=== PATIENT | male | born 1995 | race Caucasian/White ===

== ENCOUNTER 2024-03-11 08:11 | Outpatient (OUT) | payer BC, SELFPAY ==
[2024-03-12 09:07] LABS: Rapid Plasma Reagin, Quant Non Reactive titer (NonRea<1:1)
[2024-03-12 11:09] LABS: HBsAg Screen Negative (Negative); HCV Antibody Non Reactive (Non Reactive); Hep B Core Ab, Tot Negative (Negative)
[2024-03-12 13:07] LABS: HIV Ab/p24 Ag Screen Non Reactive (Non Reactive)
[2024-03-13 21:07] LABS: Neisseria gonorrhoeae, NAA Negative (Negative)
== END 2024-03-11 08:12 | disposition home or self-care (01) ==
LOC: LAB 08:14
PROVIDERS: PCP Family Medicine
DX: Z31.41 Encounter for fertility testing (principal)
CPT/HCPCS: 36415; 86592; 86704; 86803; 87340; 87389; 87491; 87591

== ENCOUNTER 2024-04-01 09:44 | Outpatient (OUT) | payer BC, SELFPAY ==
--- OUTSIDE RECORDS SUMMARY | 2024-04-01 09:49 | XMS_ITS | CCD ---
Author Organization [facility] Care Team Providers Care Pressure Testing Technician Name Role Phone IGNACIO CARRILLO Attending Unavailable PEREZ BROCK Primary Care Unavailable MULTERRYGAN, IGNACIO Admitting Unavailable MULLIGAN, IGNACIO Consulting Unavailable MULLIGAN, IGNACIO Admitting Unavailable MULLIGAN, IGNACIO Consulting Unavailable IGNACIO CARRILLO Attending Unavailable PEREZ BROCK Primary Care Unavailable SINTIA, IGNACIO Attending Unavailable SINTIA, IGNACIO Admitting Unavailable MISC, DOCTOR Primary Care Unavailable REENA GRACIA Consulting Unavailable REENA GRACIA Attending Unavailable REENA GRACIA Admitting Unavailable PEREZ JAMES V Consulting Unavailable JORJE PELLETIER Consulting Unavailable PEREZ BROCK Primary Care Unavailable SINTIA, IGNACIO Admitting Unavailable SINTIA, IGNACIO Attending Unavailable SINTIA, IGNACIO Consulting Unavailable PEREZ BROCK Primary Care Unavailable SINTIA, IGNACIO Attending Unavailable SINTIA, IGNACIO Admitting Unavailable SINTIA, IGNACIO Consulting Unavailable No, Physician Primary Care Provider Unavailanahi e DO Perez Brock Primary Care Provider DO Mikki Plummer Attending Provider Perez Brock Primary Care Physician [phone] MD Danette García Attending Provider DO Perez Brock Primary Care Provider [phone] Perez Brock Unavailable DO Perez Brock Primary Care Provider MD Danette García Attending Provider [phone] DO Perez Brock Attending Provider [phone] MD Danette García Referring Provider [phone] Unavailable Primary Care Provider Unavailabl e MAURICIO FRANZ Attending Un available PEREZ BROCK Referring Unavailable PEREZ BROCK Primary Care Unavailable DO Perez Brock Primary Care Provider MD Mauricio Franz Attending Provide r Perez Brock Primary Care Unavailable Lue, Danette M Admitting Unavailable Lue, Danette M Attending Unavailable Lue, Danette M Admitting Unavailable GirPerez bello Primary Care Unavailable Lue, Danette M Attending Unavailable Perez Brock Primary Care Unavailable Lue, Danette M Attending Unavailable Lue, Danette M Admitting Unavailable Perez Brock Primary Care Unavailable Mauricio Franz Attending Unav ailable Mauricio Franz Admitting Unav ailable Lue, Danetet M Referring Unavailable Perez Brock Admitting Unavailable Perez Brock Attending Unavailable Perez Brock Primary Care Unavailable Mariza, Perez Primary Care Unavailable Lue, Danette M Admitting Unavailable Lue, Danette M Attending Unavailable Unavailable Primary Care Provider Unavailabl e TRACEE, ANGEL Referring Unavailable SMOLEN, EVERARDO Referring Unavailable DUDZIAK, JESSE Referring Unavailable ATTARAN, WILLIAM Referring Unavailable Lue, Danette M. Attending Unavailable Lue, Danette M. Attending Unavailable Lue, Danette M. Attending Unavailable Lue, Danette M. Admitting Unavailable Lue, Danette M. Attending Unavailable DO Perez Brock Primary Care Provider MD Danette García Attending Provider [phone] Allergies Allergy Classification Reported Allergen(s) Allergy Type Date of Onset Reaction(s) Facility (7 sources) Pollen; Translations: [Pollen] Allergy to substance Eruption of skin (disorder) [facility] (7 sources) Grass; Translations: [Grass] Allergy to substance Itching (finding) [facility] (3 sources) Escitalopram Drug Allergy sexual side effects, excessive sweating and mood swings Oncodesign Other (1 source) Escitalopram Drug Allergy 05-12-20 [facility] Repository (1 source) No Known Medication Allergies; Translations: [No Known Medication Allergies] Propensity to adverse reactions (disorder) [facility] Repository NEGATED: Highlighted row has been ruled out! (1 source) Drug allergy [facility] NEGATED: Highlighted row has been ruled out! (1 source) Drug allergy [facility] NEGATED: Highlighted row has been ruled out! (1 source) Drug allergy [facility] NEGATED: Highlighted row has been ruled out! (1 source) Drug allergy [facility] NEGATED: Highlighted row has been ruled out! (1 source) Drug allergy [facility] NEGATED: Highlighted row has been ruled out! (1 source) Drug allergy [facility] Medications Current Medications Medication Drug Class(es) Dates Sig (Normalized) Sig (Original) Allergy (3 sources) Allergy Active benzoyl peroxide 0.05 mg/mg / erythromycin 0.03 mg/mg topical gel (2 sources) Macrolide, Macrolide Antimicrobial Start: 10-01-2015 benzoyl peroxide-erythrom ycin (BENZAMYCIN) gel APPLY TO AFFECTED AREAS ONCE DAILY AT BEDTIME 25 g 0 10/01/2015 Active Start: 06-24-2015 End: 10-01-2015 benzoyl peroxide-erythromyci n (BENZAMYCIN) gel APPLY AT BEDTIME 46.6 g 1 06/24/2015 10/01/2015 Discontinued (Reorder (Suppress CancelRx Message to Pharmacy)) busPIRone (18 sources) Start: 12-29-2023 take 1 tablet by elder th twice daily Buspirone Active 0 .ROUTE .COMPLEX 180 December 29, 2023 9:54am TAKE 1 TABLET BY MOUTH TWICE A DAY Start: 09-22-2023 End: 12-29-2023 take 10 mg by mouth twice daily Buspirone Discontinued 10 MG PO Twice daily 180 September 22, 2023 5:32pm December 29, 2023 9:55am Start: 06-11-2023 take 1 mg by mouth twice daily busPIRone 10 mg Tab mg tab(s), Oral, BID Start Date: 06/11/23 Status: Ordered Start: 03-31-2023 take 1 tablet by elder th every twelve hours busPIRone HCl 10 MG 1 tablet Orally Twice a day for 30 days Mar, Active Start: 03-31-2023 take 1 tablet by elder th every twelve hours busPIRone HCl 5 MG 1 tablet Orally Twice a day for 30 days Mar, Active cetirizine hydrochloride 10 mg oral tablet (3 sources) Histamine-1 Receptor Antagonist Start: 11-17-2023 take 1 tablet by mouth once daily Cetirizine (24hour Allergy) 10 mg tablet Active 10 MG PO Daily November 17, 2023 12:00am Sharlene (4 sources) Histamine-1 Receptor Antagonist Start: 03-26-2023 Sharlene Oral Start Date: 03/26/23 Status: Ordered Multivitamin preparation (1 source) Multivitamin Active Completed/Discontinued Medications Medication Drug Class(es) Dates Sig (Normalized) Sig (Original) finasteride 5 mg oral tablet (2 sources) 5-alpha Reductase Inhibitor take 1 tablet by mouth every twenty-four hours Finasteride 5 MG 1 tablet Orally Once a day Not-Taking Problems Active Problems Problem Classification Problem Date Documented Date Episodic/Chronic Abdominal pain (15 sources) Left lower quadrant pain; Translations: [Abdominal pain] Onset: 01-29-2020 02-14-2020 Episodic Acute and chronic tonsillitis (3 sources) Amygdalolith; 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 Anxiety disorders (11 sources) Anxiety; Translations: [Anxiety disorder, unspecified] Chronic Calculus of urinary tract (20 sources) Calculus of kidney; Translations: [Kidney stone] Onset: 06-05-2020 Episodic 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; 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 Genitourinary symptoms and ill-defined conditions (14 sources) Blood in urine; Translations: [Gross hematuria] Onset: 01-11-2023 Episodic Other acquired deformities (6 sources) Spondylolisthesis; Translations: [Spondylolisthesis, site unspecified] 11-17-2023 Episodic Other acquired deformities (2 sources) Spondylolisthesis, site unspecified; Translations: [Spondylolisthesis] Episodic Other diseases of kidney and ureters (4 sources) Hydronephrosis with renal and ureteral calculous obstruction; Translations: [HYDRONPHROS RENL AND URETRL CALCUL OBST] Onset: 03-26-2020 Episodic Other diseases of kidney and ureters (1 source) Acquired renal cyst without neoplastic change; Translations: [Cyst of kidney, acquired] Onset: 01-11-2023 Episodic Other diseases of kidney and ureters (6 sources) Hydronephrosis due to ureteral obstruction 02-14-2020 Episodic Other diseases of kidney and ureters (6 sources) Hydronephrosis; Translations: [Unspecified hydronephrosis] Onset: 02-01-2023 Episodic Other endocrine disorders (2 sources) Hyperparathyroidism, unspecified; Translations: [Hyperparathyroidism, unspecified] Onset: 11-04-2023 Chronic Other nutritional; endocrine; and metabolic disorders (4 sources) Hypercalcemia; Translations: [HYPERCALCEMIA] Onset: 05-24-2020 Chronic Other screening for suspected conditions (not mental disorders or infectious disease) (3 sources) Blood chemistry abnormal; Translations: [Other specified abnormal findings of blood chemistry] Onset: 06-11-2023 Episodic Pneumonia (except that caused by tuberculosis or sexually transmitted disease) (4 sources) Pneumonia; Translations: [Pneumonia, unspecified organism] 03-01-2024 Episodic Unclassified (1 source) New Patient Onset: 11-04-2023 Unclassified (1 source) Low back pain, unspecified; Translations: [Low back pain, unspecified] Onset: 04-14-2023 Past or Other Problems Problem Classification Problem Date Documented Date Episodic/Chronic Contraceptive and procreative management (7 sources) Patient encounter status; Translations: [Encounter for other procreative investigation and testing] Onset: 08-27-2023 08-26-2023 Episodic Fracture of upper limb (1 source) Fracture at wrist and/or hand level; Translations: [Hydronephrosis with renal and ureteral calculous obstruction] Onset: 01-20-2023 Episodic Unclassified (1 source) Lumbar pain M54.50 Results Test Name Value Interpretation Reference Range Facility Reminderson 03-13-2024 Reminders Reminders From: Laila Haskins To: [facility] - Recalls Lue; Sent: 06/11/2023 10:09:30 EST Show up: 11/10/2023 11:09:00 EDT Subject: Imaging Due Date/Time: 01/10/2024 11:09:00 EDT Pt needs to get KUB and KELLI done prior to appt. appt with KML 01/07/24- patient wants imaging done at [facility] Pt appointment rescheduled for 04/21/24 verified KE[place] [facility], [place] from [facility] [place] that patient wants to be scheduled closer to his appointment time. [facility] [place] patient, Dustin [facility] HIV 1 and HIV-2 antibody ass ay with HIV-1 p24 antigen detectionon 03-11-2024 HIV 1+2 Ab+HIV1 p24 Ag IA Ql Non-Reactive Non Reactive [facility] Comment on above: HIV-1/HIV-2 antibodi es and HIV-1 p24 antigen were NOTdetected. There is no laboratory evidence of HIV infection.HIV NegativePerformed at: CÜR - [facility] [address] [id number] Director: Sony Strauss PhD, Phone: [phone] Hepatitis B virus surface Ag [Presence] in Serum or Plasma by Immunoassayon 03-11-2024 HBV surface Ag IA Ql Negative Negative [facility] Hepatitis C virus IgG Ab [Pr esence] in Serum or Plasma by Immunoassayon 03-11-2024 HCV IgG IA Ql Non-Reactive Non Reactive [facility] Comment on above: HCV antibody alone d oes not differentiate betweenpreviously resolved infection and active infection.Equivocal and Reactive HCV antibody results should befollowed up with an HCV RNA test to support the diagnosisof active HCV infection. Laboratory - Microbiology an d Antimicrobial susceptibilityon 03-11-2024 N. gonorrhoeae DNA CITLALI+probe Ql (Unsp spec) Negative Negative [facility] No Panel Informationon 03-11 Hepatitis B Core Total Antibody Negative Negative [facility] Comment on above: Performed at: CB - [facility] [address] [id number] Director: Sony Strauss PhD, Phone: [phone] RPR Quantitative Confirmation Non Reactive titer NonRea<1:1 [facility] Comment on above: Please Note: This te st does not meet current guidelines forscreening and diagnosis of syphilis. This test isintended for following treatment response in patients beingtreated for syphilis infection. To screen for syphilisinfection, a reflex cascade that includes both RPR and atreponema-specific assay should be utilized, such asTreponema pallidum (Syphilis) Screening [place] (208769) orRapid Plasma Reagin (RPR) Test With Reflex to QuantitativeRPR and Confirmatory Treponema pallidum Antibodies(533464).Performed at: - [facility] [id number] Director: Sony Strauss PhD, Phone: [phone] Chlamydia trachomatis (CITLALI) (LAB) Negative Negative [facility] Comment on above: Performed at: = - L [address] [id number] Director: Alisa Soria MD, Phone: [phone] CARRIER SCREEN, [place] [address] 03-04-2024 CARRIER SCREEN RESULTS View results in Scanned Documents link when available. [facility] Comment on above: Order Comment: Speci men Type: BLOOD SPECIMEN Ordering Facility: 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 #:[id number]: 1 Problem List As Of Date: 01/07/2024 (None) Encounter Status:Closed by ZEE DAMIAN on 01/07/24 [facility] SPERM WASH GRADIENTon 2023 Collection time (Malika) [Date/time] 1:08 Normal [facility] Comment on above: Order Comment: Speci men Type: SEMINAL FLUID SPECIMENOrdering Facility: [facility] Address: [address] [place] [address] Result Comment: 1:15 Performed By: #### P ERCOL ####[facility] H[facility]ITALANDROLOGYCLIA [id number] [place] [id number] PARTNER INFORMATION Jenn Marcelino Normal [facility] Comment on above: Order Comment: Speci men Type: SEMINAL FLUID SPECIMENOrdering Facility: [facility] Address: [address] [place] [address] Performed By: #### P ERCOL ####[facility] H[facility]ITALANDROLOGYCLIA [id number] [place] [id number] PERCENT MOTILITY POST 95 % Normal >=50 [facility] Comment on above: Order Comment: Speci men Type: SEMINAL FLUID SPECIMENOrdering Facility: [facility] Address: [address] [place] [address] Performed By: #### P ERCOL ####[facility] HOS[facility]ITALANDROLOGYCLIA [id number] [place] [id number] Sexual abstinence duration [Time] 1.0 Days [facility] Comment on above: Order Comment: Speci men Type: SEMINAL FLUID SPECIMENOrdering Facility: [facility] Address: [address] [place] [address] Performed By: #### P ERCOL ####[facility] H[facility]ITALANDROLOGYCLIA [id number] [place] [id number] Specimen volume (Malika) 0.4 mL Normal >=1.50 [facility] Comment on above: Order Comment: Speci men Type: SEMINAL FLUID SPECIMENOrdering Facility: [facility] Address: [address] [place] [address] Performed By: #### P ERCOL ####[facility]-ANDROLOGYCLIA [id number] [facility] [place] [address] SPERM CONCENTRATION POST 60.0 M/mL Normal [facility] Comment on above: Order Comment: Speci men Type: SEMINAL FLUID SPECIMENOrdering Facility: [facility] Address: [address] [place] [address] Performed By: #### P ERCOL ####[facility]-ANDROLOGYCLIA [id number] [facility] [place] [address] [place] (Malika) [#/Vol] 24.0 M Normal >=15.00 [facility] Comment on above: Order Comment: Speci men Type: SEMINAL FLUID SPECIMENOrdering Facility: [facility] Address: [address] [place] [address] Result Comment: 135. 70 Performed By: #### P ERCOL ####[facility]ITALANDROLOGYCLIA [id number] [facility] [place] [address] [place] Motile (Malika) [#/Vol] 22.8 M Normal [facility] Comment on above: Order Comment: Speci men Type: SEMINAL FLUID SPECIMENOrdering Facility: [facility] Address: [address] [place] [address] Performed By: #### P ERCOL ####[facility]ITALANDROLOGYCLIA [id number] [facility] [place] [address] [place] Motile/100 spermatozoa (Malika) 83 % Normal >=40 [facility] Comment on above: Order Comment: Speci men Type: SEMINAL FLUID SPECIMENOrdering Facility: [facility] Address: [address] [place] [address] Performed By: #### P ERCOL ####[facility]-ANDROLOGYCLIA [id number] [facility] [place] [address] UNDIFF ROUND CELLS POST WASH 0.00 M/mL Normal <1.00 [facility] Comment on above: Order Comment: Speci men Type: SEMINAL FLUID SPECIMENOrdering Facility: [facility] Address: [address] [place] [id number] Performed By: #### P ERCOL ####[facility]-ANDROLOGYCLIA [id number] [place] [id number] WASHING SOLUTION EnhanceW [facility] Comment on above: Order Comment: Speci men Type: SEMINAL FLUID SPECIMENOrdering Facility: [facility] Address: [address] [place] [id number] Performed By: #### P ERCOL ####[facility]-ANDROLOGYCLIA [id number] [place] [id number] CNOVon 12-15-2023 CNOV Office Visit (ANDRBE ) REX MARCELINO ([id number]) 1995 M Date Time Provider Department 12/15/23 1:30 PM [facility]OLOG[facility] During your visit today, we recorded the following information about you: Zee Damian 12/15/2023 4:18 PM Signed Semen Wash for IUI Zee Damian Referring Provider: EVERARDO THOMPSON [[id number]] Allergies As of Date: 12/15/2023 (Not on File) Date Reviewed: Never Reviewed Visit Diagnosis:Encounter for investigation and testing for procreative management [Z31.49] Order(s):SPERM WASH GRADIENT [SQPERCOL] Order #: [id number]. #:[id number]: 1 Problem List As Of Date: 12/15/2023 (None) Encounter Status:Closed by ZEE DAMIAN on 12/15/23 [facility] SPERM WASH GRADIENTon 2023 Collection time (Malika) [Date/time] 2:08 [facility] Comment on above: Order Comment: Speci men Type: SEMINAL FLUID SPECIMENOrdering Facility: [facility] Address: [address] [place] [id number] Result Comment: 2:15 Performed By: #### P ERCOL ####[facility]-ANDROLOGYCLIA [id number] [facility] [place] [address] PARTNER INFORMATION Jenn Marcelino Normal [facility] Comment on above: Order Comment: Speci men Type: SEMINAL FLUID SPECIMENOrdering Facility: [facility] Address: [address] [place] [address] Performed By: #### P ERCOL ####[facility]-ANDROLOGYCLIA [id number] [place] [id number] PERCENT MOTILITY POST 97 % Normal >=50 [facility] Comment on above: Order Comment: Speci men Type: SEMINAL FLUID SPECIMENOrdering Facility: [facility] Address: [address] [place] [address] Performed By: #### P ERCOL ####[facility]-ANDROLOGYCLIA [id number] [facility] [place] [id number] Sexual abstinence duration [Time] 1.0 Days Normal [facility] Comment on above: Order Comment: Speci men Type: SEMINAL FLUID SPECIMENOrdering Facility: [facility] Address: [address] [place] [address] Performed By: #### P ERCOL ####[facility]-ANDROLOGYCLIA [id number] [place] [id number] Specimen volume (Malika) 0.4 mL Normal >=1.50 [facility] Comment on above: Order Comment: Speci men Type: SEMINAL FLUID SPECIMENOrdering Facility: [facility] Address: [address] [place] [address] Performed By: #### P ERCOL ####[facility]-ANDROLOGYCLIA [id number] [facility] [place] [id number] SPERM CONCENTRATION POST 104.0 M/mL Normal [facility] Comment on above: Order Comment: Speci men Type: SEMINAL FLUID SPECIMENOrdering Facility: [facility] Address: [address] [place] [address] Performed By: #### P ERCOL ####[facility]-ANDROLOGYCLIA [id number] [place] [address] [place] (Malika) [#/Vol] 41.6 M Normal >=15.00 [facility] Comment on above: Order Comment: Speci men Type: SEMINAL FLUID SPECIMENOrdering Facility: [facility] Address: [address] [place] [address] Result Comment: 115. 20 Performed By: #### P ERCOL ####[facility]ITALANDROLOGYCLIA [id number] [place] [id number] [place] Motile (Malika) [#/Vol] 40.4 M Normal [facility] Comment on above: Order Comment: Speci men Type: SEMINAL FLUID SPECIMENOrdering Facility: [facility] Address: [address] [place] [address] Performed By: #### P ERCOL ####[facility]ITALANDROLOGYCLIA [id number] [place] [id number] [place] Motile/100 spermatozoa (Malika) 85 % Normal >=40 [facility] Comment on above: Order Comment: Speci men Type: SEMINAL FLUID SPECIMENOrdering Facility: [facility] Address: [address] [place] [address] Performed By: #### P ERCOL ####[facility]ITALANDROLOGYCLIA [id number] [place] [id number] UNDIFF ROUND CELLS POST WASH 0.00 M/mL Normal <1.00 [facility] Comment on above: Order Comment: Speci men Type: SEMINAL FLUID SPECIMENOrdering Facility: [facility] Address: [address] [place] [address] Performed By: #### P ERCOL ####[facility]ITALANDROLOGYCLIA [id number] [place] [id number] WASHING SOLUTION EnhanceW Normal [facility] Comment on above: Order Comment: Speci men Type: SEMINAL FLUID SPECIMENOrdering Facility: [facility] Address: [address], [place] [address] Performed By: #### P ERCOL ####[facility]-ANDROLOGYCLIA [id number] [place] [address] Lab Reportson 11-16-2023 Lab Reports [id number]#[id number] [id number] Normal [facility] Alanine aminotransferase [En zymatic activity/volume] in Serum or PlasmaOrdered By: Mauricio Gloria on 11-13-2023 ALT [Catalytic activity/Vol] 22 U/L 7-52 [facility] Albumin [Mass/volume] in Ser um or Plasma by Bromocresol green (BCG) dye binding methoOrdered By: Mauricio Gloria on 11-13-2023 Albumin BCG dye [Mass/Vol] 4.8 g/dL 3.5-5.7 [facility] Alkaline phosphatase [Enzyma tic activity/volume] in Serum or PlasmaOrdered By: Mauricio Gloria on 11-13-2023 ALP [Catalytic activity/Vol] 63 U/L 34-104 [facility] Aspartate aminotransferase [ Enzymatic activity/volume] in Serum or PlasmaOrdered By: Mauricio Gloria on 11-13-2023 AST [Catalytic activity/Vol] 16 U/L 13-39 [facility] Bilirubin.total [Mass/volume ] in Serum or PlasmaOrdered By: Mauricio Gloria on 11-13-2023 Bilirubin [Mass/Vol] 1.3 mg/dL 0.3-1.0 [facility] Comment on above: Samples from patient s who have taken Naproxen have shown spurious elevation in Total Bilirubin levels. A metabolite of Naproxen, O-desmethylnaproxen, has been shown to interfere with the Kenyon-Tena method for measuring Total Bilirubin. Calcium [Mass/volume] in Ser um or PlasmaOrdered By: Mauricio Gloria on 11-13-2023 Calcium [Mass/Vol] 10.0 mg/dL 8.6-10.3 [facility] Carbon dioxide, total [Moles /volume] in Serum or PlasmaOrdered By: Mauricio Gloria on 11-13-2023 CO2 [Moles/Vol] 28.9 mmol/L 21.0-31.0 [facility] Chloride [Moles/volume] in S adis or PlasmaOrdered By: Mauricio Gloria on 11-13-2023 Chloride [Moles/Vol] 105 mmol/L 98-107 [facility] Comprehensive Metabolic Pane ramirez 11-13-2023 Albumin [Mass/Vol] 4.8 g/dL Normal 3.5-5.7 [facility] Comment on above: Order Comment: FASTI NG Performed By: #### P TH, MG, [id number], CMP #### [facility] [address] [place] [address] #### CAION #### [facility] , Albumin/Globulin [Mass ratio] 2.0 {ratio} Normal [facility] Comment on above: Order Comment: FASTI NG Performed By: #### P TH, MG, [id number], CMP #### [facility] [address] [place] [address] [place] #### CAION #### [facility] , ALP [Catalytic activity/Vol] 63 U/L Normal 34-104 [facility] Comment on above: Order Comment: FASTI NG Performed By: #### P TH, MG, [id number], CMP #### [facility] [address] [place] [address] [place] #### CAION #### [facility] , ALT [Catalytic activity/Vol] 22 U/L Normal 7-52 [facility] Comment on above: Order Comment: FASTI NG Performed By: #### P TH, MG, [id number], CMP #### [facility] [address] [place] [address] [place] #### CAION #### [facility] , Anion gap [Moles/Vol] 10.5 mmol/L Normal 6.0-15.0 [facility] Comment on above: Order Comment: FASTI NG Performed By: #### P TH, MG, [id number], CMP #### [place] [address] [place] #### CAION #### [facility] , AST [Catalytic activity/Vol] 16 U/L Normal 13-39 [facility] Comment on above: Order Comment: FASTI NG Performed By: #### P TH, MG, [id number], CMP #### [place] [address] [place] #### CAION #### [facility] , Bilirubin [Mass/Vol] 1.3 mg/dL High 0.3-1.0 [facility] Comment on above: Order Comment: FASTI NG Result Comment: Samp les from patients who have taken Naproxen have shown spurious elevation in Total Bilirubin levels. A metabolite of Naproxen, O-desmethylnaproxen, has been shown to interfere with the Jendrsussyik-Grof method for measuring Total Bilirubin. Performed By: #### P TH, MG, [id number], CMP #### [place] [address] [place] #### CAION #### [facility] , Calcium [Mass/Vol] 10.0 mg/dL Normal 8.6-10.3 [facility] Comment on above: Order Comment: FASTI NG Performed By: #### P TH, MG, [id number], CMP #### [facility] [address] [place] [address] [place] #### CAION #### [facility] , Chloride [Moles/Vol] 105 mmol/L Normal 98-107 [facility] Comment on above: Order Comment: FASTI NG Performed By: #### P TH, MG, [id number], CMP #### [place] [address] [place] #### CAION #### [facility] , CO2 [Moles/Vol] 28.9 mmol/L Normal 21.0-31.0 [facility] Comment on above: Order Comment: FASTI NG Performed By: #### P TH, MG, [id number], CMP #### [place] [address] [place] #### CAION #### [facility] , Creatinine [Mass/Vol] 1.03 mg/dL Normal 0.70-1.30 [facility] Comment on above: Order Comment: FASTI NG Performed By: #### P TH, MG, [id number], CMP #### [address] #### CAION #### [facility] , GFR/1.73 sq M.predicted MDRD (S/P/Bld) [Vol rate/Area] mL/min/{1.73_m2} Normal [facility] Comment on above: Order Comment: FASTI NG Performed By: #### P TH, MG, [id number], CMP #### [place] [address] [place] #### CAION #### [facility] , Globulin (S) [Mass/Vol] 2.4 g/dL Normal [facility] Comment on above: Order Comment: FASTI NG Performed By: #### P TH, MG, [id number], CMP #### [facility] [address] [place] [address] [place] #### CAION #### [facility] , Glucose [Mass/Vol] 91 mg/dL Normal 70-100 [facility] Comment on above: Order Comment: FASTI NG Result Comment: [place] om Glucose Reference Range is dependent on time and content of last meal. Glucose of more than 200 mg/dL in a nonstressed, ambulatory subject supports the diagnosis of Diabetes Mellitus. ADA recommended reference range Performed By: #### P TH, MG, [id number], CMP #### [place] [address] [place] #### CAION #### [facility] , Potassium [Moles/Vol] 4.4 mmol/L Normal 3.5-5.1 [facility] Comment on above: Order Comment: FASTI NG Performed By: #### P TH, MG, [id number], CMP #### [facility] [address] [place] [address] [place] #### CAION #### [facility] , Protein [Mass/Vol] 7.2 g/dL Normal 6.4-8.9 [facility] Comment on above: Order Comment: FASTI NG Performed By: #### P TH, MG, [id number], CMP #### [facility] [address] [place] [address] [place] #### CAION #### [facility] , Sodium [Moles/Vol] 140 mmol/L Normal 136-145 [facility] Comment on above: Order Comment: FASTI NG Performed By: #### P TH, MG, [id number], CMP #### [facility] [address] [place] [address] [place] #### CAION #### [facility] , Urea nitrogen [Mass/Vol] 17 mg/dL Normal 7-25 [facility] Comment on above: Order Comment: FASTI NG Performed By: #### P TH, MG, [id number], CMP #### [facility] [address] [place] [address] [place] #### CAION #### [facility] , Creatinine [Mass/volume] in Serum or PlasmaOrdered By: Mauricio Gloria on 11-13-2023 Creatinine [Mass/Vol] 1.03 mg/dL 0.70-1.30 [facility] Globulin Calc (S) [Mass/Vol] Ordered By: Mauricio Gloria on 11-13-2023 Globulin (S) [Mass/Vol] 2.4 g/dL [facility] Glucose [Mass/volume] in Ser um or PlasmaOrdered By: Mauricio Gloria on 11-13-2023 Glucose [Mass/Vol] 91 mg/dL 70-100 [facility] Comment on above: ADA recommended refe rence rangeRandom Glucose Reference Range is dependent on time and content of last meal. Glucose of more than 200 mg/dL in a nonstressed, ambulatory subject supports the diagnosis of Diabetes Mellitus. Ionized Calciumon 11-13-2023 Ionized Calcium 5.0 mg/dL Normal 4.5-5.6 [facility] Comment on above: Order Comment: FASTI NG Result Comment: Perf ormed at: CB - [facility] [address] [id number] Supervisor [employer]: Sony Strauss PhD, Phone: [phone] PERFORMED BY: [place] [address] PATHOLOGIST OFFICE NURSE PRACTITIONER GIBSON DOSS M.D. Performed By: #### P TH, MG, [id number], CMP #### [facility] [address] [place] [address] #### CAION #### [facility] , Magnesiumon 11-13-2023 Magnesium [Mass/Vol] 2.0 mg/dL Normal 1.9-2.7 [facility] Comment on above: Order Comment: FASTI NG Performed By: #### P TH, MG, [id number], CMP #### [facility] [address] [place] [address] #### CAION #### [facility] , Magnesium [Mass/volume] in S adis or PlasmaOrdered By: Mauricio Gloria on 11-13-2023 Magnesium [Mass/Vol] 2.0 mg/dL 1.9-2.7 [facility] No Panel InformationOrdered By: Mauricio Gloria on 11-13-2023 Estimated GFR (CKD-EPI) > 60.0 mL/Min [facility] Creatinine Clearance (Chem N/A [facility] Parathyrin.intact [Mass/volu me] in Serum or PlasmaOrdered By: Mauricio Gloria on 11-13-2023 Parathyrin.intact [Mass/Vol] 54.5 pg/mL [facility] Parathyroid Hormone Int[place]on 11-13-2023 Parathyroid Hormone Intact 54.5 pg/mL Normal [facility] Comment on above: Order Comment: KERRY NG Result Comment: PERF ORMED BY: [facility] [address] [place] [address] PATHOLOGIST OFFICE NURSE PRACTITIONER GIBSON DOSS M.D. Performed By: #### P TH, MG, [id number], CMP #### [facility] [address] [place] [address] [place] #### CAION #### [facility] , Potassium [Moles/volume] in Serum or PlasmaOrdered By: Mauricio Gloria on 11-13-2023 Potassium [Moles/Vol] 4.4 mmol/L 3.5-5.1 [facility] Protein [Mass/volume] in Ser um or PlasmaOrdered By: Mauricio Gloria on 11-13-2023 Protein [Mass/Vol] 7.2 g/dL 6.4-8.9 [facility] Serum ionized calcium measur ement using ion specific electrode (mass/volume)Ordered By: Mauricio Gloria on 11-13-2023 Calcium.ionized ISE [Mass/Vol] 5.0 mg/dL 4.5-5.6 [facility] Comment on above: Performed at: [address] [id number] Director: Sony Strauss PhD, Phone: [phone] Serum or plasma albumin/glob ulin mass ratioOrdered By: Mauricio Gloria on 11-13-2023 Albumin/Globulin [Mass ratio] 2.0 {ratio} [facility] Serum or plasma anion gap de terminationOrdered By: Mauricio Gloria on 11-13-2023 Anion gap [Moles/Vol] 10.5 mmol/L 6.0-15.0 [facility] Sodium [Moles/volume] in Ser um or PlasmaOrdered By: Mauricio Gloria on 11-13-2023 Sodium [Moles/Vol] 140 mmol/L 136-145 [facility] Urea nitrogen [Mass/volume] in Serum or PlasmaOrdered By: Mauricio Gloria on 11-13-2023 Urea nitrogen [Mass/Vol] 17 mg/dL 7-25 [facility] Vitamin D 25 Hydroxy Totalon 11-13-2023 Vitamin D 25 Hydroxy Total 20.4 ng/mL Low 30-100 [facility] Comment on above: Order Comment: FASTI NG Result Comment: KAYLIE MIN D STATUS 25(OH)VITAMIN D RANGE (ng/mL) Deficient <20 Insufficient 20 to <30 Sufficient 30 to 100 Reference: Lucero Mason, Juan Manuel BANUELOS, et al. Evaluation,treatment, and prevention of vitamin D deficiency; an Endocrine Society clinical practice guideline. JCEM. 2010; 96(7):1911-. PERFORMED BY: [facility] [address] [place] [address] PATHOLOGIST OFFICE NURSE PRACTITIONER GIBSON DOSS M.D. Performed By: #### P TH, MG, [id number], CMP #### [address] #### CAION #### [facility] , Vitamin D+Metabolites [Mass/ volume] in Serum or PlasmaOrdered By: Mauricio Gloria on 11-13-2023 Vitamin D+Metabolites [Mass/Vol] 20.4 ng/mL 30-100 [facility] Comment on above: VITAMIN D STATUS 25( OH)VITAMIN D RANGE (ng/mL) Deficient <20 Insufficient 20 to <30Sufficient 30 to 100Reference: Lucero Mason, Juan Manuel BANUELOS, et al. Evaluation,treatment, and prevention of vitamin D deficiency; an Endocrine Society clinical practice guideline. JCEM. 2010; 96(7):1911-30. CNOVon 10-21-2023 CNOV Office Visit (ANDRBE ) REX MARCELINO ([id number]) 1995 M Date Time Provider Department 10/21/23 2:00 PM ANDROLOGY DELIVERY AND INSTALLATION SUBCONTRACTOR JAVIERJENNIFER During your visit today, we recorded the following information about you: Zee Damian 10/21/2023 3:17 PM Signed [place] Wash for IUI Zee Damian Referring Provider: JESSE NOLASCO [[id number]] Allergies As of Date: 10/21/2023 (Not on File) Date Reviewed: Never Reviewed Visit Diagnosis:Encounter for investigation and testing for procreative management [Z31.49] Order(s):SPERM WASH GRADIENT [SQPERCOL] Order #: [id number]. #:[id number]: 1 Problem List As Of Date: 10/21/2023 (None) Encounter Status:Closed by ZEE DAMIAN on 10/21/23 Normal [facility] SPERM WASH GRADIENTon 2023 Collection time (Malika) [Date/time] 2:03 [facility] Comment on above: Order Comment: Speci men Type: SEMINAL FLUID SPECIMENOrdering Facility: [facility] Address: [address] [place] [address] Result Comment: 3:10 Performed By: #### P ERCOL ####[facility]-ANDROLOGYCLIA [id number] [place] [id number] PARTNER INFORMATION Jenn Marcelino Normal [facility] Comment on above: Order Comment: Speci men Type: SEMINAL FLUID SPECIMENOrdering Facility: [facility] Address: [address] [place] [address] Performed By: #### P ERCOL ####[facility]-ANDROLOGYCLIA [id number] [place] [id number] PERCENT MOTILITY POST 95 % Normal >=50 [facility] Comment on above: Order Comment: Speci men Type: SEMINAL FLUID SPECIMENOrdering Facility: [facility] Address: [address] [place] [address] Performed By: #### P ERCOL ####[facility]-ANDROLOGYCLIA [id number] [place] [id number] Sexual abstinence duration [Time] 2.0 Days Normal [facility] Comment on above: Order Comment: Speci men Type: SEMINAL FLUID SPECIMENOrdering Facility: [facility] Address: [address] [place] [address] Performed By: #### P ERCOL ####[facility]ITALANDROLOGYCLIA [id number] [place] [id number] Specimen volume (Malika) 0.4 mL Normal >=1.50 [facility] Comment on above: Order Comment: Speci men Type: SEMINAL FLUID SPECIMENOrdering Facility: [facility] Address: [address] [place] [address] Performed By: #### P ERCOL ####[facility] H[facility]ITALANDROLOGYCLIA [id number] [place] [id number] SPERM CONCENTRATION POST 76.0 M/mL Normal [facility] Comment on above: Order Comment: Speci men Type: SEMINAL FLUID SPECIMENOrdering Facility: [facility] Address: [address] [place] [address] Performed By: #### P ERCOL ####[facility]ITALANDROLOGYCLIA [id number] [place] [id number] Sper[place] (Malika) [#/Vol] 30.4 M Normal >=15.00 [facility] Comment on above: Order Comment: Speci men Type: SEMINAL FLUID SPECIMENOrdering Facility: [facility] Address: [address] [place] [address] Result Comment: 109. 20 Performed By: #### P ERCOL ####[facility]ITALANDROLOGYCLIA [id number] [place] [id number] [place] Motile (Malika) [#/Vol] 28.8 M Normal [facility] Comment on above: Order Comment: Speci men Type: SEMINAL FLUID SPECIMENOrdering Facility: [facility] Address: [address] [place] [address] Performed By: #### P ERCOL ####[facility]-ANDROLOGYCLIA [id number] [facility] [address] [id number] [place] Motile/100 spermatozoa (Malika) 85 % Normal >=40 [facility] Comment on above: Order Comment: Speci men Type: SEMINAL FLUID SPECIMENOrdering Facility: [facility] Address: [address] [place] [address] Performed By: #### P ERCOL ####[facility]-ANDROLOGYCLIA [id number] [place] [id number] UNDIFF ROUND CELLS POST WASH 0.00 M/mL Normal <1.00 [facility] Comment on above: Order Comment: Speci men Type: SEMINAL FLUID SPECIMENOrdering Facility: [facility] Address: [address] [place] [address] Performed By: #### P ERCOL ####[facility] H[facility]ITALANDROLOGYCLIA [id number] [place] [id number] WASHING SOLUTION Enhance W Normal [facility] Comment on above: Order Comment: Speci men Type: SEMINAL FLUID SPECIMENOrdering Facility: [facility] Address: [address] [place] [address] Performed By: #### P ERCOL ####[facility]-ANDROLOGYCLIA [id number] [place] [id number] CNOVon 09-22-2023 CNOV Office Visit (ANDRBE ) REX MARCELINO ([id number]) 1995 M Date Time Provider Department 09/22/23 1:30 PM ANDROLOGY DELIVERY AND INSTALLATION SUBCONTRACTOR [facility]CLE[facility] During your visit today, we recorded the following information about you: Zee Damian 09/22/2023 3:49 PM Signed Semen Wash for IUI Zee Damian Referring Provider: ANGEL EASLEY [[id number]] Allergies As of Date: 09/22/2023 (Not on File) Date Reviewed: Never Reviewed Visit Diagnosis:Encounter for investigation and testing for procreative management [Z31.49] Order(s):SPERM WASH GRADIENT [SQPERCOL] Order #: [id number]. #:[id number]: 1 Problem List As Of Date: 09/22/2023 (None) Encounter Status:Closed by ZEE DAMIAN on 09/22/23 Normal [facility] SPERM WASH GRADIENTon 2023 Collection time (Malika) [Date/time] 1:50 Normal [facility] Comment on above: Order Comment: Speci men Type: SEMINAL FLUID SPECIMENOrdering Facility: [facility] Address: [address] [place] [address] Result Comment: 1:50 Performed By: #### P ERCOL ####[facility] H[facility]ITALANDROLOGYCLIA [id number] [place] [address] PARTNER INFORMATION Jenn Marcelino Normal [facility] Comment on above: Order Comment: Speci men Type: SEMINAL FLUID SPECIMENOrdering Facility: [facility] Address: [address] [place] [address] Performed By: #### P ERCOL ####[facility] HOS[facility]ITALANDROLOGYCLIA [id number] [place] [id number] PERCENT MOTILITY POST 94 % Normal >=50 [facility] Comment on above: Order Comment: Speci men Type: SEMINAL FLUID SPECIMENOrdering Facility: [facility] Address: [address] [place] [address] Performed By: #### P ERCOL ####[facility] H[facility]ITALANDROLOGYCLIA [id number] [place] [id number] Sexual abstinence duration [Time] 2.0 Days Normal [facility] Comment on above: Order Comment: Speci men Type: SEMINAL FLUID SPECIMENOrdering Facility: [facility] Address: [address] [place] [address] Performed By: #### P ERCOL ####[facility] H[facility]ITALANDROLOGYCLIA [id number] [facility] [place] [address] Specimen volume (Malika) 0.4 mL Normal >=1.50 [facility] Comment on above: Order Comment: Speci men Type: SEMINAL FLUID SPECIMENOrdering Facility: [facility] Address: [address] [place] [address] Performed By: #### P ERCOL ####[facility]-ANDROLOGYCLIA [id number] [facility] [place] [id number] SPERM CONCENTRATION POST 107.0 M/mL Normal [facility] Comment on above: Order Comment: Speci men Type: SEMINAL FLUID SPECIMENOrdering Facility: [facility] Address: [address] [place] [address] Performed By: #### P ERCOL ####[facility]ITALANDROLOGYCLIA [id number] [place] [id number] [place] (Malika) [#/Vol] 42.8 M Normal >=15.00 [facility] Comment on above: Order Comment: Speci men Type: SEMINAL FLUID SPECIMENOrdering Facility: [facility] Address: [address] [place] [address] Result Comment: 198. 80 Performed By: #### P ERCOL ####[facility]ITALANDROLOGYCLIA [id number] [place] [id number] [place] Motile (Malika) [#/Vol] 40.4 M Normal [facility] Comment on above: Order Comment: Speci men Type: SEMINAL FLUID SPECIMENOrdering Facility: [facility] Address: [address] [place] [address] Performed By: #### P ERCOL ####[facility] H[facility]ITALANDROLOGYCLIA [id number] [place] [address] [place] Motile/100 spermatozoa (Malika) 83 % Normal >=40 [facility] Comment on above: Order Comment: Speci men Type: SEMINAL FLUID SPECIMENOrdering Facility: [facility] Address: [address] [place] [address] Performed By: #### P ERCOL ####[facility]-ANDROLOGYCLIA [id number] [place] [id number] UNDIFF ROUND CELLS POST WASH 0.00 M/mL Normal <1.00 [facility] Comment on above: Order Comment: Speci men Type: SEMINAL FLUID SPECIMENOrdering Facility: [facility] Address: [address] [place] [address] Performed By: #### P ERCOL ####[facility]-ANDROLOGYCLIA [id number] [place] [id number] WASHING SOLUTION EnhanceW Normal [facility] Comment on above: Order Comment: Speci men Type: SEMINAL FLUID SPECIMENOrdering Facility: [facility] Address: [address] [place] [address] Performed By: #### P ERCOL ####[facility]-ANDROLOGYCLIA [id number] [place] [id number] CNOVon 08-27-2023 CNOV Office Visit (ANDRBE ) REX MARCELINO ([id number]) 1995 M Date Time Provider Department 08/27/23 1:30 PM ANDROLOGY DELIVERY AND INSTALLATION SUBCONTRACTOR [facility] During your visit today, we recorded the following information about you: Zee Damian 08/27/2023 3:42 PM Signed Semen Wash for IUI Zee Damian Referring Provider: NO PCP [[id number]] Allergies As of Date: 08/27/2023 (Not on File) Date Reviewed: Never Reviewed Primary Visit Diagnosis:Encounter for investigation and testing for procreative management [Z31.49] Order(s):SPERM WASH GRADIENT [SQPERCOL] Order #: [id number]: 1 STANDING SPERM WASH GRADIENT [SQPERCOL] Order #: [id number]. #:[id number]: 1 Problem List As Of Date: 08/27/2023 (None) Encounter Status:Closed by ZEE DAMIAN on 08/27/23 [facility] SPERM WASH GRADIENTon 2023 Collection time (Malika) [Date/time] 1:48 Normal [facility] Comment on above: Order Comment: Speci men Type: SEMINAL FLUID SPECIMENOrdering Facility: [facility] Address: [address] [place] [address] Result Comment: 1:55 Performed By: #### P ERCOL ####[facility]-ANDROLOGYCLIA [id number] [place] [address] COMMENT, PRE WASH 45% isolate used Normal [facility] Comment on above: Order Comment: Speci men Type: SEMINAL FLUID SPECIMENOrdering Facility: [facility] Address: [address] [place] [address] Performed By: #### P ERCOL ####[facility]-ANDROLOGYCLIA [id number] [place] [address] PARTNER INFORMATION Jenn Marcelino Normal [facility] Comment on above: Order Comment: Speci men Type: SEMINAL FLUID SPECIMENOrdering Facility: [facility] Address: [address] [place] [address] Performed By: #### P ERCOL ####[facility]-ANDROLOGYCLIA [id number] [place] [id number] PERCENT MOTILITY POST 72 % Normal >=50 [facility] Comment on above: Order Comment: Speci men Type: SEMINAL FLUID SPECIMENOrdering Facility: [facility] Address: [address] [place] [address] Performed By: #### P ERCOL ####[facility]-ANDROLOGYCLIA [id number] [place] [id number] Sexual abstinence duration [Time] 2.0 Days [facility] Comment on above: Order Comment: Speci men Type: SEMINAL FLUID SPECIMENOrdering Facility: [facility] Address: [address] [place] [address] Performed By: #### P ERCOL ####[facility]-ANDROLOGYCLIA [id number] [place] [address] Specimen volume (Malika) 0.4 mL Normal >=1.50 [facility] Comment on above: Order Comment: Speci men Type: SEMINAL FLUID SPECIMENOrdering Facility: [facility] Address: [address] [place] [address] Performed By: #### P ERCOL ####[facility]ITALANDROLOGYCLIA [id number] [place] [address] SPERM CONCENTRATION POST 114.0 M/mL Normal [facility] Comment on above: Order Comment: Speci men Type: SEMINAL FLUID SPECIMENOrdering Facility: [facility] Address: [address] [place] [address] Performed By: #### P ERCOL ####[facility]ITALANDROLOGYCLIA [id number] [place] [id number] Sper[place] (Malika) [#/Vol] 45.6 M Normal >=15.00 [facility] Comment on above: Order Comment: Speci men Type: SEMINAL FLUID SPECIMENOrdering Facility: [facility] Address: [address] [place] [address] Result Comment: 128. 70 Performed By: #### P ERCOL ####[facility]ITALANDROLOGYCLIA [id number] [place] [address] [place] Motile (Malika) [#/Vol] 32.8 M Normal [facility] Comment on above: Order Comment: Speci men Type: SEMINAL FLUID SPECIMENOrdering Facility: [facility] Address: [address] [place] [address] Performed By: #### P ERCOL ####[facility]ITALANDROLOGYCLIA [id number] [place] [address] [place] Motile/100 spermatozoa (Malika) 67 % Normal >=40 [facility] Comment on above: Order Comment: Speci men Type: SEMINAL FLUID SPECIMENOrdering Facility: [facility] Address: [address] [place] [address] Performed By: #### P ERCOL ####[facility]-ANDROLOGYCLIA [id number] [place] [id number] UNDIFF ROUND CELLS POST WASH 0.00 M/mL Normal <1.00 [facility] Comment on above: Order Comment: Speci men Type: SEMINAL FLUID SPECIMENOrdering Facility: [facility] Address: [address] [place] [address] Performed By: #### P ERCOL ####[facility]-ANDROLOGYCLIA [id number] [place] [id number] WASHING SOLUTION EnhanceW Normal [facility] Comment on above: Order Comment: Speci men Type: SEMINAL FLUID SPECIMENOrdering Facility: [facility] Address: [address] [place] [address] Performed By: #### P ERCOL ####[facility]ITALANDROLOGYCLIA [id number] [place] [id number] Screenson 06-14-2023 Screens [id number]. 00TIFF Normal [facility] Screens [id number]. 00TIFF Normal [facility] Ambulatory Visit Summaryon 1 08-11-2022 Ambulatory Visit Summary REX MARCELINO :1995 Visit Date:06/11/2023 Ambulatory Visit Instructions Your Diagnosis Kidney stone Duplicated collecting system History of kidney stones Tests Performed Urnls Dip Stick Auto w/o Microscopy POC 91155 Your Care Team Attending Physician - Ricky SAWYER, Danette [place] Primary Care Physician - Perez Brock DO This Is Your Medications List busPIRone (busPIRone 10 mg Tab) fexofenadine (Sharlene) Procedures Performed ESWL - Extracorporeal shockwave lithotripsy for renal calculus (02/23/2023), Cystoscopy (01/11/2023). Discharge Vitals Heart Rate (Peripheral) 92 Blood Pressure 136/77 Height 75 in Height 190 cm Weight 215.6 lb Weight 98 kg BMI 27.15 Medications What How Much When Instructions Unchanged busPIRone (busPIRone 10 mg Tab) 2 times a day Unchanged fexofenadine (Sharlene) Test Results Urnls Dip Stick Auto w/o Microscopy POC 85517 (06/11/2023) Bilirubin Urine Dipstick - Negative Blood Urine Dipstick - Negative Glucose Urine Dipstick - Negative Ketones Urine Dipstick - Negative Leukocytes Urine Dipstick - Negative Nitrite Urine Dipstick - Negative Protein Urine Dipstick - Negative Specific [place] Urine Dipstick - 1.010 Urine Appearance Urine Dipstick - Clear Urine Color Urine Dipstick - Light yellow Urobilinogen Urine Dipstick - Normal 0.2-1 EU/dl pH Urine Dipstick - 7 Allergies Grass (Itching) No Known Medication Allergies Pollen (Rash) Problems Ongoing - Any problem that you are currently receiving treatment for. Abdominal pain Duplicated collecting system Flank pain Gross hematuria History of kidney stones Hydronephrosis Hypercalciuria Kidney stone Ureteral stone with hydronephrosis Patient Survey You may receive a survey via text or e-mail asking about your office visit. Please share your experience with us by completing your survey. We appreciate your feedback and thank you for choosing us for your care. [facility] Patient Educationon 06-11-20 23 Patient Education Nephrology Dietary Guidelines to Help Prevent Kidney Stones Kidney stones are deposits of minerals and salts that form inside your kidneys. Your risk of developing kidney stones may be greater depending on your diet, your lifestyle, the medicines you take, and whether you have certain medical conditions. Most people can lower their chances of developing kidney stones by following the instructions below. Your dietitian may give you more specific instructions depending on your overall health and the type of kidney stones you tend to develop. What are tips for following this plan? Reading food labels ? Choose foods with no salt added or low-salt labels. Limit your salt (sodium) intake to less than 1,500 mg a day. ? Choose foods with calcium for each meal and snack. Try to eat about 300 mg of calcium at each meal. Foods that contain 200?500 mg of calcium a serving include: ? 8 oz (237 mL) of milk, izjpvis-eyqbycwdgstb-a airy milk, and calcium-fortifiedfruit juice. Calcium-fortified means that calcium has been added to these drinks. ? 8 oz (237 mL) of kefir, yogurt, and soy yogurt. ? 4 oz (114 g) of tofu. ? 1 oz (28 g) of cheese. ? 1 cup (150 g) of dried figs. ? 1 cup (91 g) of cooked broccoli. ? One 3 oz (85 g) can of sardines or mackerel. Most people need 1,000?1,500 mg of calcium a day. Talk to your dietitian about how much calcium is recommended for you. Shopping ? Buy plenty of fresh fruits and vegetables. Most people do not need to avoid fruits and vegetables, even if these foods contain nutrients that may contribute to kidney stones. ? When shopping for convenience foods, choose: ? Whole pieces of fruit. ? Pre-made salads with dressing on the side. ? Low-fat fruit and yogurt smoothies. ? Avoid buying frozen meals or prepared deli foods. These can be high in sodium. ? Look for foods with live cultures, such as yogurt and kefir. ? Choose high-fiber grains, such as whole-wheat breads, oat bran, and wheat cereals. Cooking ? Do not add salt to food when cooking. Place a salt shaker on the table and allow each person to add his or her own salt to taste. ? Use vegetable protein, such as beans, textured vegetable protein (TVP), or tofu, instead of meat in pasta, casseroles, and soups. Meal planning ? Eat less salt, if told by your dietitian. To do this: ? Avoid eating processed or pre-made food. ? Avoid eating fast food. ? Eat less animal protein, including cheese, meat, poultry, or fish, if told by your dietitian. To do this: ? Limit the number of times you have meat, poultry, fish, or cheese each week. Eat a diet free of meat at least 2 days a week. ? Eat only one serving each day of meat, poultry, fish, or seafood. ? When you prepare animal protein, cut pieces into small portion sizes. For most meat and fish, one serving is about the size of the palm of your hand. ? Eat at least five servings of fresh fruits and vegetables each day. To do this: ? Keep fruits and vegetables on hand for snacks. ? Eat one piece of fruit or a handful of berries with breakfast. ? Have a salad and fruit at lunch. ? Have two kinds of vegetables at dinner. ? Limit foods that are high in a substance called oxalate. These include: ? Spinach (cooked), rhubarb, beets, sweet potatoes, and [place] chard. ? Peanuts. ? Potato chips, slovenian fries, and baked potatoes with skin on. ? Nuts and nut products. ? Chocolate. ? If you regularly take a diuretic medicine, make sure to eat at least 1 or 2 servings of fruits or vegetables that are high in potassium each day. These include: ? Avocado. ? Banana. ? Delta, prune, carrot, or tomato juice. ? Baked potato. ? Cabbage. ? Beans and split peas. Lifestyle ? Drink enough fluid to keep your urine pale yellow. This is the most important thing you can do. Spread your fluid intake throughout the day. ? If you drink alcohol: ? Limit how much you use to: ? 0?1 drink a day for women who are not . ? 0?2 drinks a day for men. ? Be aware of how much alcohol is in your drink. In the [place] one drink equals one 12 oz bottle of beer (355 mL), one 5 oz glass of wine (148 mL), or one 1? oz glass of hard liquor (44 mL). ? Lose weight if told by your health care provider. Work with your dietitian to find an eating plan and weight loss strategies that work best for you. General information ? Talk to your health care provider and dietitian about taking daily supplements. You may be told the following depending on your health and the cause of your kidney stones: ? Not to take supplements with vitamin C. ? To take a calcium supplement. ? To take a daily probiotic supplement. ? To take other supplements such as magnesium, fish oil, or vitamin B6. ? Take gkcc-zfm-filuteq and prescription medicines only as told by your health care provider. These include supplements. What foods should I limit? Limit your in (more content not included)... Normal [facility] Urology Office/Clinic Noteon 06-11-2023 Urology Office/Clinic Note Chief Complaint 2 month follow up w/ metabolic work up HPI Staff 2 month follow up w/metabolic workup done 04/14/23, Litho Links 05/17/23. Previous DX: abdominal pain, flank pain, gross hematuria, hydronephrosis, kidney stone, ureteral stone with hydronephrosis. S/P Cysto done 01/11/23. Dysuria: denies pain and burning Incomplete bladder emptying: denies Hematuria: denies visible blood Frequency: every 2 hours Urgency: denies Nocturia: denies Stream: denies hesitancy, strong stream Leaking: denies Post void dripping: denies Wearing pads/ Depends: denies Urge incontinence: denies Stress incontinence: denies Incontinence without Sensory Awareness: denies Abdominal pain: denies Flank pain: sometimes Lt sided discomfort Sexual complaints: denies History of Present Illness Tests reviewed: reviewed UA and Metabolic Workup. I have reviewed the previous health record information and history for this patient from . I have reviewed and verified the staff HPI to be accurate for this encounter. There have been no associated fever, chills, flank pain, or blood in the urine. Denies any urinary infections since last encounter. Review of Systems PHQ Score Initial Depression Screen Score: 0 SCORE ROS - Provider Constitutional: denies weight loss, denies hot flashes. Eyes: denies eye problems. Gastrointestinal: denies nausea, denies vomiting. Cardiovascular: denies chest pain or angina. Integumentary: no dryness Musculoskeletal: denies musculoskeletal symptoms. ENMT: denies otolaryngeal symptoms. Respiratory: no shortness of breath. Heme/Lymph: denies easy bleeding tendency, denies easy bruising tendency. Psychiatric: no confusion, no anxiety. Genitourinary: See HPI. Physical Exam Vitals & Measurements HR: 92(Peripheral) BP: 136/77 HT: 75 in HT: 190 cm WT: 98 kg WT: 215.6 lb BMI: 27.15 General Appearance: alert, no distress, well nourished, well developed male. Assessment/Plan 28 year old male with history of kidney stones and hypercalciuria previously managed with hydrochlorothiazide by Dr. Carrillo last in 2019. He has been off the HCTZ for years. CARRIE 25(25). IPSS 8 1. Kidney stone (N20.0: Calculus of kidney) CT wo con 01/29/20 - Punctate right stone. Metabolic workup 05/24/20 - Slightly high Ca. KELLI 01/05/23 - Mild bilateral hydronephrosis with possible left renal pelvic stone 17 x 8 x 14 mm. CTU 01/20/23 - Mild prominence of the left renal collecting system (lower moiety) with a 9 mm stone at the inferior pole. KUB 02/10/23 - 9 mm stone L kidney grossly unchanged when compared to prior CT. No R renal stone. No ureteral calculus. S/p L ESWL 02/23/23. KUB 03/23/23 - Neg for stones. Stone Analysis 04/19/23 - CaOx Dihy 90%, CaOx Bremer 5%, and Hydroxyapatite 5% Labs 04/14/23 - PTH 93.2 (high), Ca 10.1, Uric acid 6.1 LithoLink 04/2023 - Urine CA 622, Volume 2.3 liters, citrate 588, sodium high 232 Discussed metabolic workup results with pt, PTH was elevated, could be the cause of his stones, calcium is borderline elevated, discussed referral to an import export manager for further evaluation. Volume is good, citrate was good, pt states that he had done the citrate prior to the test but not during the test. Pt states that he is taking a multi-vitamin and he dumped out his first void of the day. Advised pt to continue the amount of fluids he is drinking and decrease his sodium intake. Discussed dietary modifications. Discussed getting repeat imaging to monitor any stones. Pt states that he would like to do this. Advised pt that once the perithyroid is ruled out, then we will discuss starting the HCTZ again. Follow up in 7 mos w/KELLI and KUB. All questions/concerns were discussed. Pt to call the office if he encounters any issues prior. Pt acknowledges understanding. -Will order KUB and KELLI to be done prior to follow-up -Refer to Adjunct Professor Of Law for hyperparathyroid work-up -Continue dietary modifications: Decrease sodium, monitor calcium intake Ordered: Body Mass Index (BMI) documented 3008F Current tobacco non-user 1036F Most recent diastolic blood pressure >=90 mm Hg 3080F Most recent systolic blood pressure >= 140 mm Hg 3077F Urnls Dip Stick Auto w/o Microscopy POC 80417 US Renal XR Abdomen 1 View 2. 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 Recently diagnosed on cystoscopy, confirmed on CTU. -Consider nuclear medicine renal scan in the future if hydronephrosis of lower pole moiety worsens or becomes symptomatic. Unlikely problematic given able to clear stones easily. Ordered: Body Mass Index (BMI) documented 3008F Current tobacco non-user 1036F Most recent diastolic blood pressure >=90 mm Hg 3080F Most recent systolic blood pressure >= 140 mm Hg 3077F Urnls Dip Stick Auto w/o Microscopy POC 32599 3. History of kidney stones (Z87.442: Personal history of urinary calculi) Patient has passed stones from the left on his own in the p (more content not included)... Normal [facility] Comment on above: Result Comment: Elec tronically Signed By: Danette García MD\.br\Date and Time Signed: 06/11/23 10:27 EST\.br\Electronically Co-Signed By: Laila Haskins\.br\Date and Time Co-Signed: 06/11/23 10:08 EST Lab Reportson 05-20-2023 Lab Reports [id number] TIFF Normal [facility] Calculus Analysison 04-27-20 Calcium oxalate dihydrate Infrared spectroscopy (Stone) [Mass fraction] 90 % Invalid Interpretation Code [facility] Comment on above: Performed By: #### 1 [id number] #### [facility] [address] [place] [address] Calcium oxalate monohydrate (Stone) [Mass fraction] 5 % Invalid Interpretation Code [facility] Comment on above: Performed By: #### 1 [id number] #### [facility] [address] [place] [address] Calculus analysis [Interp] Comment Invalid Interpretation Code [facility] Comment on above: Result Comment: Calc ium phosphate (hydroxyl form) includes hydroxyapatite, amorphous calcium phosphate, and whitlockite. Hydroxyapatite is the most common of the calcium phosphate salts found in human kidney stones. Performed By: #### 1 [id number] #### [facility] [address] [place] [address] Color (Stone) Brown Invalid Interpretation Code [facility] Comment on above: Performed By: #### 1 [id number] #### [facility] [address] [place] [address] Composition Comment Invalid Interpretation Code [facility] Comment on above: Result Comment: Perc entage (Represents the % composition) Performed By: #### 1 [id number] #### [facility] [address] [place] [address] Disclaimer: Comment Invalid Interpretation Code [facility] Comment on above: Result Comment: This test was developed and its performance characteristics determined by [employer]. It has not been cleared or approved by the Food and Drug Administration. Performed at: [address] [id number] PhD Azam Botello Performed By: #### 1 [id number] #### [facility] [address] [place] [address] Hydroxyapatite: 5 % Invalid Interpretation Code [facility] Comment on above: Performed By: #### 1 [id number] #### [facility] [address] [place] [address] Laboratory comment Ruddy (Report) Comment Invalid Interpretation Code [facility] Comment on above: Result Comment: Sugar hauser questions regarding Calculi Analysis [facility] at: [phone]. Performed By: #### 1 [id number] #### [facility] [address] [place] [address] Please Note: Comment Invalid Interpretation Code [facility] Comment on above: Result Comment: Calc xuan report will follow via computer, mail or learning disabled teacher delivery. Performed By: #### 1 [id number] #### [facility] [address] [place] [address] Size (Stone) [Entitic vol] 3x3 Invalid Interpretation Code [facility] Comment on above: Result Comment: Mult iple pieces received. Dimensions of the largest piece reported. Performed By: #### 1 [id number] #### [facility] [address] [place] [address] Specimen source subject Nom Comment Invalid Interpretation Code [facility] Comment on above: Result Comment: Not provided Performed By: #### 1 [id number] #### [facility] [address] [place] [address] Stone Photo Comment Invalid Interpretation Code [facility] Comment on above: Result Comment: Phot ograph will follow under a separate cover Performed By: #### 1 [id number] #### [facility] [address] [place] [address] Weight (Stone) 75 mg Invalid Interpretation Code [facility] Comment on above: Performed By: #### 1 [id number] #### [facility] [address] [place] [address] Ambulatory Visit Summaryon 0 04-19-2023 Ambulatory Visit Summary REX MARCELINO :1995 Visit Date:04/19/2023 Ambulatory Visit Instructions Your Care Team Attending Physician - Danette García MD Primary Care Physician - Perez Brock DO This Is Your Medications List fexofenadine (Sharlene) Procedures Performed ESWL - Extracorporeal shockwave lithotripsy for renal calculus (02/23/2023), Cystoscopy (01/11/2023). What to do next Scheduled Follow-Up Appointments Wednesday 8:15 AM EDT With: Ricky SAWYER, Danette Alston Where: [facility] Normal [facility] Lab Reportson 04-15-2023 Lab Reports [id number] CD:127 Normal [facility] Blood Urea Nitrogenon 2022 Urea nitrogen [Mass/Vol] 15 mg/dL Normal 7-25 [facility] Comment on above: Performed By: #### L YTES, URIC, BUN, CREAT, PTH, CA #### [address] Calciumon 04-14-2023 Calcium [Mass/Vol] 10.1 mg/dL Normal 8.6-10.3 [facility] Comment on above: Performed By: #### L YTES, URIC, BUN, CREAT, PTH, CA ####[place] [id number] [facility] Calcium [Mass/volume] in Ser um or PlasmaOrdered By: Danette García on 04-14-2023 Calcium [Mass/Vol] 10.1 mg/dL 8.6-10.3 [facility] Carbon dioxide, total [Moles /volume] in Serum or PlasmaOrdered By: Danette García on 04-14-2023 CO2 [Moles/Vol] 29.1 mmol/L 21.0-31.0 [facility] Chloride [Moles/volume] in S adis or PlasmaOrdered By: Danette García on 04-14-2023 Chloride [Moles/Vol] 102 mmol/L 98-107 [facility] Creatinineon 04-14-2023 Creatinine [Mass/Vol] 1.06 mg/dL Normal 0.70-1.30 [facility] Comment on above: Performed By: #### L PETER, URIC, BUN, CREAT, PTH, CA ####[address] GFR/1.73 sq M.predicted MDRD (S/P/Bld) [Vol rate/Area] mL/min/{1.73_m2} Normal [facility] Comment on above: Performed By: #### L YTES, URIC, BUN, CREAT, PTH, CA ####[place] [id number] [facility] Creatinine [Mass/volume] in Serum or PlasmaOrdered By: Danette García on 04-14-2023 Creatinine [Mass/Vol] 1.06 mg/dL 0.70-1.30 [facility] Electrolyteson 04-14-2023 Anion gap [Moles/Vol] 11.1 mmol/L Normal 6.0-15.0 [facility] Comment on above: Performed By: #### L YTES, URIC, BUN, CREAT, PTH, CA #### [address] Chloride [Moles/Vol] 102 mmol/L Normal 98-107 [facility] Comment on above: Performed By: #### L YTES, URIC, BUN, CREAT, PTH, CA #### [address] CO2 [Moles/Vol] 29.1 mmol/L Normal 21.0-31.0 [facility] Comment on above: Performed By: #### L YTES, URIC, BUN, CREAT, PTH, CA #### [address] Potassium [Moles/Vol] 4.2 mmol/L Normal 3.5-5.1 [facility] Comment on above: Performed By: #### L YTES, URIC, BUN, CREAT, PTH, CA #### [address] Sodium [Moles/Vol] 138 mmol/L Normal 136-145 [facility] Comment on above: Performed By: #### L YTES, URIC, BUN, CREAT, PTH, CA #### [address] No Panel InformationOrdered By: Danette García on 04-14-2023 Estimated GFR (CKD-EPI) > 60.0 mL/Min [facility] Creatinine Clearance (Chem N/A [facility] Parathyrin.intact [Mass/volu me] in Serum or PlasmaOrdered By: Danette García on 04-14-2023 Parathyrin.intact [Mass/Vol] 93.2 pg/mL [facility] Parathyroid Hormone Intacton 04-14-2023 Parathyroid Hormone Intact 93.2 pg/mL High [facility] Comment on above: Result Comment: PERF ORMED BY: [place] [address] PATHOLOGIST OFFICE NURSE PRACTITIONER GIBSON DOSS M.D. Performed By: #### L YTES, URIC, BUN, CREAT, PTH, CA ####[place] [address] [place] [address] [facility] Potassium [Moles/volume] in Serum or PlasmaOrdered By: Danette García on 04-14-2023 Potassium [Moles/Vol] 4.2 mmol/L 3.5-5.1 [facility] Serum or plasma anion gap de terminationOrdered By: Danette García on 04-14-2023 Anion gap [Moles/Vol] 11.1 mmol/L 6.0-15.0 [facility] Sodium [Moles/volume] in Ser um or PlasmaOrdered By: Danette García on 04-14-2023 Sodium [Moles/Vol] 138 mmol/L 136-145 [facility] Urate [Mass/volume] in Serum or PlasmaOrdered By: Danette García on 04-14-2023 Urate [Mass/Vol] 6.1 mg/dL 4.4-7.6 [facility] Urea nitrogen [Mass/volume] in Serum or PlasmaOrdered By: Danette García on 04-14-2023 Urea nitrogen [Mass/Vol] 15 mg/dL 7-25 [facility] Uric Acidon 04-14-2023 Urate [Mass/Vol] 6.1 mg/dL Normal 4.4-7.6 [facility] Comment on above: Result Comment: PERF ORMED BY: [place] [address] PATHOLOGIST OFFICE NURSE PRACTITIONER GIBSON DOSS M.D. Performed By: #### L YTES, URIC, BUN, CREAT, PTH, CA ####[place] [address] [place] [address] [facility] XR lumbar spine 6V w bending on 04-14-2023 XR lumbar spine 6V w bending [facility] [place] [id number] XRay Report Signed Patient: Rex Marcelino MR#: [id number] 329 : 1995 Acct:[id number] Age/Sex: 27 / M ADM Date: 04/14/23 Loc: XD Room: Type: REG CLI Attending Dr: Perez Brock DO Copies to: Perez rBock DO Ordering Provider: Perez Brock DO Date of Service: 04/14/23 XR/XR lumbar spine 6V w bending: M54.50 9 views of the Lumbar Spine HISTORY: Lower back pain. Upper pelvis pain. Extension into the buttocks. COMPARISON: CT urogram 01/20/2023 POSTSURGICAL CHANGES: None BONY ALIGNMENT: 14 mm L5-S1 anterolisthesis. No hypermobility. L5 pars defect. FRACTURE: None DEGENERATIVE CHANGES: None SOFT TISSUES: Unremarkable BONY MINERALIZATION:Adequat e XR/XR lumbar spine 6V w bending IMPRESSION: No hypermobility. 14 mm L5-S1 anterolisthesis. L5 pars defects. Impression dictated by: Lio Cowart M.D.04/14/2023 8:54 PM Dictation Location: [place] [address] Transcribed By: [facility] 04/14/232053 Dictated By: Lio Cowart DO 04/14/232049 Signed By: 04/14/232053 Normal [facility] XR KUBon 03-23-2023 XR KUB [facility] [place] [address] XRay Report Signed Patient: Rex Marcelino MR#: [id number] 329 : 1995 Acct:[id number] Age/Sex: 27 / M ADM Date: 03/23/23 Loc: XD Room: Type: [facility] CLI Attending Dr: Danette García MD Copies to: Danette García MD Ordering Provider: Danette García MD Date of Service: 03/23/23 XR/XR KUB: N20.0 KUB COMPARISON: 02/10/2023 HISTORY: Left-sided renal stone one month ago. THORAX: Lung bases unremarkable. FREE AIR: Supine position limits assessment BOWEL: No gaseous intestinal distention. STOOL: No significant stool RENAL STONES: No significant stones present. VASCULAR CALCIFICATIONS: Pelvic vascular calcifications redemonstrated SOFT TISSUE: Unremarkable BONES: Unremarkable POSTSURGICAL CHANGES: None XR/XR KUB IMPRESSION: No visible nephrolithiasis. Impression dictated by: Lio Cowart M.D.03/23/2023 8:08 PM Dictation Location: [place] [address] Transcribed By: [facility] 03/23/232007 Dictated By: Lio Cowart DO 03/23/232006 Signed By: 03/23/232007 Normal [facility] Basic Metabolic Panelon 01-23 Anion gap [Moles/Vol] 11.5 mmol/L Normal 6.0-15.0 [facility] Comment on above: Performed By: #### B MP, CBC ####[place] [id number] [facility] Calcium [Mass/Vol] 9.7 mg/dL Normal 8.6-10.3 [facility] Comment on above: Result Comment: PERF ORMED BY: [facility] [address] [place] [address] PATHOLOGIST OFFICE NURSE PRACTITIONER GIBSON DOSS M.D. Performed By: #### B MP, CBC ####[place] [id number] [facility] Chloride [Moles/Vol] 102 mmol/L Normal 98-107 [facility] Comment on above: Performed By: #### B MP, CBC ####[place] [id number] [facility] CO2 [Moles/Vol] 29.7 mmol/L Normal 21.0-31.0 [facility] Comment on above: Performed By: #### B MP, CBC ####[place] [id number] [facility] Creatinine [Mass/Vol] 1.16 mg/dL Normal 0.70-1.30 [facility] Comment on above: Performed By: #### B MP, CBC ####[place] [id number] [facility] GFR/1.73 sq M.predicted MDRD (S/P/Bld) [Vol rate/Area] mL/min/{1.73_m2} Normal [facility] Comment on above: Performed By: #### B MP, CBC ####[facility] Glucose [Mass/Vol] 87 mg/dL Normal 70-100 [facility] Comment on above: Result Comment: [place] Glucose Reference Range is dependent on time and content of last meal. Glucose of more than 200 mg/dL in a nonstressed, ambulatory subject supports the diagnosis of Diabetes Mellitus. ADA recommended reference range Performed By: #### B MP, CBC ####[place] [address] Potassium [Moles/Vol] 4.2 mmol/L Normal 3.5-5.1 [facility] Comment on above: Performed By: #### B MP, CBC ####[place] [address] Sodium [Moles/Vol] 139 mmol/L Normal 136-145 [facility] Comment on above: Performed By: #### B MP, CBC ####[address] Urea nitrogen [Mass/Vol] 13 mg/dL Normal 7-25 [facility] Comment on above: Performed By: #### B MP, CBC ####[address] Basophils Auto (Bld) [#/Vol] Ordered By: Danette García on 02-10-2023 Basophils (Bld) [#/Vol] 0.1 10*3/uL 0.0-0.2 [facility] Basophils/100 WBC Auto (Bld) Ordered By: Danette García on 02-10-2023 Basophils/100 WBC (Bld) 0.7 % . [facility] Calcium [Mass/volume] in Ser um or PlasmaOrdered By: Danette García on 02-10-2023 Calcium [Mass/Vol] 9.7 mg/dL 8.6-10.3 [facility] Carbon dioxide, total [Moles /volume] in Serum or PlasmaOrdered By: Danette García on 02-10-2023 CO2 [Moles/Vol] 29.7 mmol/L 21.0-31.0 [facility] Chloride [Moles/volume] in S adis or PlasmaOrdered By: Danette García on 02-10-2023 Chloride [Moles/Vol] 102 mmol/L 98-107 [facility] Complete Blood Count Auto Di ffon 02-10-2023 Basophils (Bld) [#/Vol] 0.1 10*3/uL Normal 0.0-0.2 [facility] Comment on above: Result Comment: PERF ORMED BY: [facility] [address] [place] [id number] PATHOLOGIST OFFICE NURSE PRACTITIONER GIBSON DOSS M.D. Performed By: #### B MP, CBC ####[address] Basophils/100 WBC (Bld) 0.7 % Normal . [facility] Comment on above: Performed By: #### B MP, CBC ####[address] Eosinophils (Bld) [#/Vol] 0.5 10*3/uL High 0.0-0.45 [facility] Comment on above: Performed By: #### B MP, CBC ####[address] Eosinophils/100 WBC (Bld) 5.3 % Normal . [facility] Comment on above: Performed By: #### B MP, CBC ####[address] Erythrocyte distribution width (RBC) [Ratio] 12.9 % Normal 12.0-14.8 [facility] Comment on above: Performed By: #### B MP, CBC ####[address] Hematocrit (Bld) [Volume fraction] 46.5 % Normal 38.8-50.0 [facility] Comment on above: Performed By: #### B MP, CBC ####[address] Hemoglobin (Bld) [Mass/Vol] 15.7 g/dL Normal 13.0-17.0 [facility] Comment on above: Performed By: #### B MP, CBC ####[address] Lymphocytes (Bld) [#/Vol] 2.9 10*3/uL Normal 1.00-4.8 [facility] Comment on above: Performed By: #### B MP, CBC ####[address] Lymphocytes/100 WBC (Bld) 32.9 % Normal . [facility] Comment on above: Performed By: #### B MP, CBC ####[address] MCH (RBC) [Entitic mass] 28.0 pg Normal 27.5-35.2 [facility] Comment on above: Performed By: #### B MP, CBC ####[address] MCV (RBC) [Entitic vol] 83.0 fL Low 83.5-101 [facility] Comment on above: Performed By: #### B MP, CBC ####[address] Mean Corpuscular HGB Conc 33.7 g/dL Normal 32.5-35.6 [facility] Comment on above: Performed By: #### B MP, CBC ####[address] Monocytes (Bld) [#/Vol] 0.6 10*3/uL Normal 0.0-0.8 [facility] Comment on above: Performed By: #### B MP, CBC ####[address] Monocytes/100 WBC (Bld) 7.0 % Normal . [facility] Comment on above: Performed By: #### B MP, CBC ####[address] Neutrophils (Bld) [#/Vol] 4.8 10*3/uL Normal 1.8-7.7 [facility] Comment on above: Performed By: #### B MP, CBC ####[address] Neutrophils/100 WBC (Bld) 54.1 % Normal . [facility] Comment on above: Performed By: #### B MP, CBC ####[address] NRBC% 0.2 /100{WBC} Normal 0-0.5 [facility] Comment on above: Performed By: #### B MP, CBC ####[address] Platelet mean volume (Bld) [Entitic vol] 8.2 fL Normal 6.6-10.1 [facility] Comment on above: Performed By: #### B MP, CBC ####[address] Platelets (Bld) [#/Vol] 286 10*3/uL Normal 150-450 [facility] Comment on above: Performed By: #### B MP, CBC ####[address] RBC (Bld) [#/Vol] 5.61 10*6/uL High 3.90-5.60 [facility] Comment on above: Performed By: #### B MP, CBC ####[address] WBC (Bld) [#/Vol] 8.9 10*3/uL Normal 4.1-10.5 [facility] Comment on above: Performed By: #### B MP, CBC ####[address] Creatinine [Mass/volume] in Serum or PlasmaOrdered By: Danette García on 02-10-2023 Creatinine [Mass/Vol] 1.16 mg/dL 0.70-1.30 [facility] Eosinophils Auto (Bld) [#/Vo l]Ordered By: Danette García on 02-10-2023 Eosinophils (Bld) [#/Vol] 0.5 10*3/uL 0.0-0.45 [facility] Eosinophils/100 WBC Auto (Bl d)Ordered By: Danette García on 02-10-2023 Eosinophils/100 WBC (Bld) 5.3 % . [facility] Erythrocyte distribution wid th Auto (RBC) [Ratio]Ordered By: Danette García on 02-10-2023 Erythrocyte distribution width (RBC) [Ratio] 12.9 % 12.0-14.8 [facility] Glucose [Mass/volume] in Ser um or PlasmaOrdered By: Danette García on 02-10-2023 Glucose [Mass/Vol] 87 mg/dL 70-100 [facility] Comment on above: ADA recommended refe rence rangeRandom Glucose Reference Range is dependent on time and content of last meal. Glucose of more than 200 mg/dL in a nonstressed, ambulatory subject supports the diagnosis of Diabetes Mellitus. Hematocrit Auto (Bld) [Volum e fraction]Ordered By: Danette García on 02-10-2023 Hematocrit (Bld) [Volume fraction] 46.5 % 38.8-50.0 [facility] Hemoglobin [Mass/volume] in BloodOrdered By: Danette García on 02-10-2023 Hemoglobin (Bld) [Mass/Vol] 15.7 g/dL 13.0-17.0 [facility] Leukocytes [#/volume] correc kristie for nucleated erythrocytes in Blood by Automated counOrdered By: Danette García on 02-10-2023 WBC corrected for nucl RBC Auto (Bld) [#/Vol] 8.9 10*3/uL 4.1-10.5 [facility] Lymphocytes Auto (Bld) [#/Vo l]Ordered By: Danette García on 02-10-2023 Lymphocytes (Bld) [#/Vol] 2.9 10*3/uL 1.00-4.8 [facility] Lymphocytes/100 WBC Auto (Bl d)Ordered By: Danette García on 02-10-2023 Lymphocytes/100 WBC (Bld) 32.9 % . [facility] MCH Auto (RBC) [Entitic mass ]Ordered By: Danette García on 02-10-2023 MCH (RBC) [Entitic mass] 28.0 pg 27.5-35.2 [facility] MCHC Auto (RBC) [Mass/Vol]Or dered By: Danette García on 02-10-2023 MCHC (RBC) [Mass/Vol] 33.7 g/dL 32.5-35.6 [facility] MCV Auto (RBC) [Entitic vol] Ordered By: Danette García on 02-10-2023 MCV (RBC) [Entitic vol] 83.0 fL 83.5-101 F [facility] Monocytes Auto (Bld) [#/Vol] Ordered By: Danette García on 02-10-2023 Monocytes (Bld) [#/Vol] 0.6 10*3/uL 0.0-0.8 [facility] Monocytes/100 WBC Auto (Bld) Ordered By: Danette García on 02-10-2023 Monocytes/100 WBC (Bld) 7.0 % . [facility] Neutrophils Auto (Bld) [#/Vo l]Ordered By: Danette García on 02-10-2023 Neutrophils (Bld) [#/Vol] 4.8 10*3/uL 1.8-7.7 [facility] Neutrophils/100 WBC Auto (Bl d)Ordered By: Danette García on 02-10-2023 Neutrophils/100 WBC (Bld) 54.1 % . [facility] No Panel InformationOrdered By: Danette García on 02-10-2023 Estimated GFR (CKD-EPI) > 60.0 mL/Min [facility] Creatinine Clearance (Chem N/A [facility] Nucleated erythrocytes [Pres ence] in Blood by Automated countOrdered By: Danette García on 02-10-2023 Nucleated RBC Auto Ql (Bld) 0.2 /100{WBC} 0-0.5 [facility] Platelet mean volume Auto (B ld) [Entitic vol]Ordered By: Danette García on 02-10-2023 Platelet mean volume (Bld) [Entitic vol] 8.2 fL 6.6-10.1 [facility] Platelets Auto (Bld) [#/Vol] Ordered By: Danette García on 02-10-2023 Platelets (Bld) [#/Vol] 286 10*3/uL 150-450 [facility] Potassium [Moles/volume] in Serum or PlasmaOrdered By: Danette García on 02-10-2023 Potassium [Moles/Vol] 4.2 mmol/L 3.5-5.1 [facility] RBC Auto (Bld) [#/Vol]Ordere d By: Danette García on 02-10-2023 RBC (Bld) [#/Vol] 5.61 10*6/uL 3.90-5.60 [facility] Serum or plasma anion gap de terminationOrdered By: aDnette García on 02-10-2023 Anion gap [Moles/Vol] 11.5 mmol/L 6.0-15.0 [facility] Sodium [Moles/volume] in Ser um or PlasmaOrdered By: Danette García on 02-10-2023 Sodium [Moles/Vol] 139 mmol/L 136-145 [facility] Urea nitrogen [Mass/volume] in Serum or PlasmaOrdered By: Danette García on 02-10-2023 Urea nitrogen [Mass/Vol] 13 mg/dL 7-25 [facility] WBC Auto (Bld) [#/Vol]Ordere d By: Danette García on 02-10-2023 WBC (Bld) [#/Vol] 8.9 10*3/uL 4.1-10.5 [facility] XR KUBon 02-10-20[place] [address] XRay Report Signed Patient: Rex Marcelino MR#: [id number] 329 : 1995 Acct:[id number] Age/Sex: 27 / M ADM Date: 02/10/23 Loc: XD Room: Type: [facility] Attending Dr: Danette García MD Copies to: Danette García MD Ordering Provider: Danette García MD Date of Service: 02/10/23 XR/XR KUB: N20.0 KUB: CLINICAL INFORMATION: Kidney stone. Preop lithotripsy on February 23. Gross hematuria. COMPARISON: CT urogram 01/12/2023 FINDINGS: The patient's 9 mm stone involving the left kidney is grossly unchanged in position when compared to the prior CT exam. No right renal calculus. No ureteral calculus is seen. Phleboliths are seen within the pelvis. No bowel obstruction. No free air. Osseous structures are grossly intact. XR/XR KUB IMPRESSION: NO SIGNIFICANT CHANGE IN POSITION OF THE LEFT RENAL CALCULUS WHEN COMPARED TO THE UROGRAM STUDY. Impression dictated by: Daniel Pena Jr., D.O.02/10/2023 5:20 PM Dictation Location: [place] [address] Transcribed By: [facility] 02/10/23 1720 Dictated By: Daniel Pena Jr, DO 02/10/23 1715 Signed By: 02/10/23 1720 Normal [facility] CT urogramon 01-20-2023 CT urogram [facility] [place] [address] [place] [address] CT Scan Report Signed Patient: Rex Marcelino MR#: [id number] 329 : 1995 Acct:[id number] Age/Sex: 27 / M ADM Date: 01/20/23 Loc: CT Room: Type: [facility] Attending Dr: Danette García MD Copies to: Danette García MD Ordering Provider: Danette García MD Date of Service: 01/20/23 CT/CT urogram: N13.2, N20.0 CT urogram 01/20/2023 3:35 PM SIGNS AND SYMPTOMS: Left flank pain, urinary frequency TECHNIQUE: Multidetector ct axial images of the abdomen and pelvis were obtained with and without IV contrast. Multiplanar reformats were performed and reviewed to further define anatomy and possible pathology. CT was performed with one or more of the following dose reduction techniques: Automated exposure control, adjustment of the mA and/or kV according to patient size, or use of iterative reconstruction technique. COMPARISON: 01/05/2023 FINDINGS: Lower Chest: Within normal limits. ABDOMEN: Liver: Within normal limits. Bile Ducts: Normal caliber. Gallbladder: No calcified gallstones. Normal caliber wall. Pancreas: Within normal limits. Spleen: Within normal limits. Adrenals: Within normal limits. Kidneys: Simple cysts are noted in the renal cortices. These require no further follow-up. There is mild prominence of the left renal collecting system with a 9 mm stone at the inferior pole. There is duplication of the left renal collecting system. Pelvis: Reproductive Organs: No pelvic masses. 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 Bladder: There is mild bladder wall thickening which may indicate cystitis. Bowel: Normal caliber. There is a normal appendix in the right lower quadrant. Mesenteric Lymph Nodes: No enlarged mesenteric lymph nodes. Peritoneum: No ascites or free air, no fluid collection. Vessels: within normal limits Retroperitoneum: Within normal limits. Abdominal Wall: Within normal limits. Bones: Bilateral L5 pars defects are noted with grade 1 spondylolisthesis of L5 upon S1. CT/CT urogram IMPRESSION: There is mild prominence of the left renal collecting system with a 9 mm stone at the inferior pole. 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 No evidence of ureteral stone or bladder stone. There is mild bladder wall thickening which may indicate cystitis. Bilateral L5 pars defects are noted with grade 1 spondylolisthesis of L5 upon S1. Impression dictated by: Reena Ibrahim M.D.01/20/2023 4:22 PM Dictation Location: [place] [address] Transcribed By: [facility] 01/20/23 1622 Dictated By: Reena Ibrahim II, MD 01/20/23 1615 Signed By: 01/20/23 1622 Normal [facility] US renal BIon 01-05-2023 US renal BI [facility] [place] [address] [place] [address] Ultrasound Report Signed Patient: Rex Marcelino MR#: [id number] 329 : 1995 Acct:[id number] Age/Sex: 27 / M ADM Date: 01/05/23 Loc: Room: Type: [facility] Attending Dr: Danette García MD Ordering Provider: Danette García MD Date of Service: 01/05/23 US/US renal BI: N20.0 R31.0 Copies to: Danette García MD BILATERAL RENAL AND BLADDER ULTRASOUND CLINICAL HISTORY: Left flank pain, gross hematuria and history of kidney stones. COMPARISON: None Estimation of renal size is approximately 10.3 cm on the right and 12.4 cm on the left. There is mild left and minor right hydronephrosis. On the left, there is a potential stone at the renal pelvis measuring 17 x 8 x 14 mm in size. A cyst is seen at the superior pole on the right measuring 2 cm in size. The wall is echogenic and associated calcification is not excluded. There is no perinephric fluid. The urinary bladder is partially distended with a volume of 174 mL. No contour or intraluminal abnormalities are seen. Bilateral ureteral jets are visualized. There is post void bladder residual of 46 mL. US/US renal BI IMPRESSION: MILD BILATERAL HYDRONEPHROSIS AND POSSIBLE LEFT RENAL PELVIC STONE. SMALL RIGHT RENAL CYST THAT MAY HAVE RIM CALCIFICATION. Impression dictated by: Kathleen Espinosa M.D.01/05/2023 9:43 AM Dictation Location: [place] [address] Tech: Jenn Tamara Transcribed By: PATRICIA 01/05/23 0943 Dictated By: Kathleen Espinosa MD 01/05/23 0938 Signed By: 01/05/2343 Normal [facility] No Panel InformationOrdered By: Mikki Plummer on 10-31-2022 Semen Analysis Comment . [facility] Comment on above: Highly gelatenous sp ecimen. Semen Appearance Normal Normal [facility] Semen pH 8.0 7.2-10 [facility] Semen Round Cell Concentration Moderate [facility] Semen WBC Concentration >= 1.0 M/mL <0.9 [facility] Sperm % Non-Motile 22 % [facility] Sperm Motility Total 78.0 % >40 [facility] Qualitative semen viscosityO rdered By: Mikki Plummer on 10-31-2022 Viscosity Ql (Malika) Abnormal Normal [facility] Semen liquefaction time andrew urementOrdered By: Mikki Plummer on 10-31-2022 Liquefaction (Malika) [Time] Abnormal <=[address] [facility] Semen volumeOrdered By: Daphnie griffinmanuel Plummer on 10-31-2022 Specimen volume (Malika) 3.5 mL >1.5 [facility] Sperm countOrdered By: Shaq fan Herminiajuan on 10-31-2022 Spermatozoa (Malika) [#/Vol] 29.5 M/mL >15 [facility] Sperm morphologyOrdered By: Mikki Kavitha on 10-31-2022 Spermatozoa Nom (Malika) 18.0 % >4.0 [facility] XR KUB 1 VIEWon 06-05-2020 XR KUB 1 VIEW EXAMINATION: XR KUB 1 VIEW HISTORY: Kidney stone ; history of kidney stones, pain 1 week ago COMPARISON: No relevant comparison available. FINDINGS: KIDNEY/URETER - RIGHT: No visible renal or ureteral calcifications. KIDNEY/URETER - LEFT: No visible renal or ureteral calcifications. PELVIS: No visible ureteral calcifications. Pelvic calcifications appear stable compared to prior CT study, allowing for differences in technique, and favor phleboliths. BOWEL: No abnormal dilation or deviation. BONES: No acute abnormality. OTHER: Negative. No abnormal gaseous collections. IMPRESSION: 1. No visible urinary tract calculi; evaluation is slightly limited by dense overlying bowel content. 2. Passage of previously seen distal left ureterolith. Electronically authenticated by: JORJE PELLETIER Date: 2020-06-05 13:16 Normal [facility] CITRATE URINE 24HRon 020 Citric Acid, U, 24hr 471 mg/24 hr Normal 320-1240 [facility] Comment on above: Result Comment: This test was developed and its performance characteristics determined by [employer]. It has not been cleared or approved by the Food and Drug Administration. Performed By: #### C ITRATU #### [facility] [address] [place] [address] Marlena Kathleen Citric Acid, Urine 428 mg/L Normal Undefined [facility] Comment on above: Result Comment: For proper preservation, the pH of urine for analysis of oxalate or citric acid must be <3.0. Specimen received was not preserved correctly, therefore results may be questionable. Performed By: #### C ITRATU #### [facility] [address] [place] [id number] Marlena Kathleen OXALATE 24HR URINEon 020 Oxalates, Urine 26 mg/L Normal Undefined [facility] Comment on above: Performed By: #### O X24HR #### [facility] [address] [place], [place] [id number] Marlena Kathleen Oxalates, Urine 24hr 29 mg/24 hr Normal 7-44 [facility] Comment on above: Performed By: #### O X24HR #### [facility] [address] [place], [place] [id number] Marlena Kathleen MAGNESIUM 24HR URINEon 05-25 Magnesium 24hr Urine 110.0 mg/24 hr Normal 12.0-293.0 [facility] Comment on above: Performed By: #### M AG24 #### [facility] [facility] [address] [place], [place] [address] Marlena Kathleen Magnesium UR 10.0 mg/dL Normal Not Estab. [facility] Comment on above: Performed By: #### M AG24 #### [facility] [address] [place], [place] [address] Marlena Kathleen PHOSPHORUS 24HR URINEon 04-27 Phosphorus, Urine 94.5 mg/dL Normal Not Estab. [facility] Comment on above: Performed By: #### P HOS 24 #### [facility] [address] [place], [place] [address] Marlena Kathleen Phosphorus, Urine 24hr 1040 mg/24 hr Normal 390-1425 [facility] Comment on above: Performed By: #### P HOS 24 #### [facility] [address] [place], [place] [address] Marlena Kathleen PTH INTACTon 05-25-2020 PTH, Intact 42 pg/mL Normal 15-65 [facility] Comment on above: Performed By: #### P THINT #### [facility] [address] [place], [place] [address] Marlena Kathleen URIC ACID 24 HR URINEon 04-27 Uric Acid, Urine 78.2 mg/dL Normal Not Estab. [facility] Comment on above: Performed By: #### C [id number] #### [facility] [address] [place], [place] [address] Marlena Kathleen Uric Acid, Urine 24hr 860.2 mg/24 hr Normal 197.2-1078 .7 [facility] Comment on above: Performed By: #### C [id number] #### [facility] [address] [address] Marlena Kathleen BUNon 05-24-2020 Urea nitrogen [Mass/Vol] 14.0 mg/dL Normal 9.0-20.0 [facility] Comment on above: Performed By: #### C ITRATU #### [facility] [address] [place] [address] Marlena Kathleen CALCIUMon 05-24-2020 Calcium [Mass/Vol] 9.5 mg/dL Normal 8.4-10.2 [facility] Comment on above: Performed By: #### C BC #### [facility] [address] [place] [address] Marlena Kathleen CALCIUM 24 HR URINEon 2019 CALC, 24 HR UR 276.1 mg/24 hr Normal 100.0-300.0 [facility] Comment on above: Performed By: #### C [id number] #### [facility] [address] [place] [address] Marlena Kathleen UR CALCIUM 25.1 mg/dl Critically high 0.0-21.0 [facility] Comment on above: Performed By: #### C [id number] #### [facility] [address] [place] [address] Marlena Kathleen CHLORIDEon 05-24-2020 Chloride [Moles/Vol] 102 mmol/L Normal 98-107 [facility] Comment on above: Performed By: #### C BC #### [facility] [address] [place] [address] Marlena Kathleen CO2on 05-24-2020 CO2 [Moles/Vol] 32.6 mmol/L Critically high 22.0-30.0 [facility] Comment on above: Performed By: #### C ITRATU #### [facility] [address] [place], [place] [address] Marlena Kathleen CREA 24 HR URINEon 10-30-202 0 CREA, 24 HR UR 2115.30 mg/24 hr Critically high 1,000. 00-2,0 00.00 [facility] Comment on above: Performed By: #### C [id number] #### [facility] [address] [place] [address] Marlena Wang UR TOT VOL 1100 ml/24 HR Normal [facility] Comment on above: Performed By: #### C [id number] #### [facility] [address] [place] [address] Marlena Wang URINE CREAT 192.30 mg/dL Normal 20.00-300.00 [facility] Comment on above: Performed By: #### C [id number] #### [facility] [address] [place] [address] Marlena Wang CREATININEon 05-24-2020 Creatinine [Mass/Vol] mg/dL Normal >=60 [facility] Comment on above: Performed By: #### C ITRATU #### [facility] [address] [place] [address] Marlena Wang Creatinine [Mass/Vol] 0.87 mg/dL Normal 0.66-1.25 [facility] Comment on above: Performed By: #### C ITRATU #### [facility] [address] [place] [address] Marlena Wang NAon 05-24-2020 Sodium [Moles/Vol] 140 mmol/L Normal 137-145 [facility] Comment on above: Performed By: #### C ITRATU #### [facility] [address] [place] [address] Marlenajenny Wang PH URINEon 05-24-2020 pH (U) 6.0 [pH] Normal 5-9 [facility] Comment on above: Performed By: #### C ITRATU #### [facility] [address] [place] [address] Marlena Ciden POTASSIUMon 05-24-2020 Potassium [Moles/Vol] 3.6 mmol/L Normal 3.4-5.0 [facility] Comment on above: Performed By: #### C BC #### [facility] [address] [place] [address] Marlena Kathleen SODIUM 24 HR URINEon 020 NA, 24 HR UR 172 mmol/24 hr Normal 40-220 [facility] Comment on above: Performed By: #### C [id number] #### [facility] [address] [place] [address] Marlena Kathleen Sodium (U) [Moles/Vol] 156 mmol/L Critically high 30-90 [facility] Comment on above: Performed By: #### C [id number] #### [facility] [address] [place], [place] [address] Marlena Kathleen URIC ACID SERUMon 05-24-2020 Urate [Mass/Vol] 6.3 mg/dL Normal 3.5-8.5 [facility] Comment on above: Performed By: #### C ITRATU #### [facility] [address] [place], [place] [address] Marlena Kathleen VITAMIN D 25 OHon 05-24-2020 VIT D 25-OH 23.4 ng/mL Normal [facility] Comment on above: Performed By: #### V ITAD #### [facility] [address] [place], [place] [address] Marlena Kathleen VIT D RANGES SEE BELOW Normal [facility] Comment on above: Result Comment: <20 ng/mL Vit D deficient 20 - <30 ng/mL Vit D insufficient 30 - 100 ng/mL Vit D sufficient >100 ng/mL Potential Toxicity Performed By: #### V ITAD #### [facility] [address] [place], [place] [address] Marlena Kathleen VITDH PLEASE NOTE: NORMAL RANGE CHANGE 03-30-2013, TESTING PERFORMED AT [facility]. Normal [facility] Comment on above: Performed By: #### V ITAD #### [facility] [address] [place], [place] [address] Marlena Kathleen CITRATE URINE 24HRon 020 Citric Acid, U, 24hr 494 mg/24 hr Normal 320-1240 [facility] Comment on above: Result Comment: This test was developed and its performance characteristics determined by [employer]. It has not been cleared or approved by the Food and Drug Administration. Performed By: #### C ITRATU #### [facility] [address] [place], [place] [address] Marlena Kathleen Citric Acid, Urine 380 mg/L Normal Undefined [facility] Comment on above: Performed By: #### C ITRATU #### [facility] [address] [place], [place] [address] Marlena Kathleen OXALATE 24HR URINEon 03-29- 020 Oxalates, Urine 23 mg/L Normal Undefined [facility] Comment on above: Performed By: #### C ALCULI #### [facility] [address] [place] [address] Marlena Kathleen Oxalates, Urine 24hr 30 mg/24 hr Normal 7-44 [facility] Comment on above: Performed By: #### C ALCULI #### [facility] [address] [place] [address] Marlena Kathleen MAGNESIUM 24HR URINEon 03-28 Magnesium 24hr Urine 171.6 mg/24 hr Normal 12.0-293.0 [facility] Comment on above: Performed By: #### C [id number] #### [facility] [address] [place] [address] Marlena Kathlene Magnesium UR 13.2 mg/dL Normal Not Estab. [facility] Comment on above: Performed By: #### C [id number] #### [facility] [address] [place] [address] Marlena Kathleen PHOSPHORUS 24HR URINEon Phosphorus, Urine 108.4 mg/dL Normal Not Estab. [facility] Comment on above: Performed By: #### C ALC24U #### [facility] [address] [place] [address] Marlena Kathleen Phosphorus, Urine 24hr 1409 mg/24 hr Normal 390-1425 [facility] Comment on above: Performed By: #### C ALC24U #### [facility] [address] [place] [address] Marlena Kathleen PTH INTACTon 03-28-2020 PTH, Intact 57 pg/mL Normal 15-65 [facility] Comment on above: Performed By: #### C ITRATU #### [facility] [address] [place] [address] Marlena Kathleen BUNon 03-26-2020 Urea nitrogen [Mass/Vol] 16.0 mg/dL Normal 9.0-20.0 [facility] Comment on above: Performed By: #### C ALCULI #### [facility] [address] [place] [address] Marlena Kathleen CALCIUMon 03-26-2020 Calcium [Mass/Vol] 9.0 mg/dL Normal 8.4-10.2 [facility] Comment on above: Performed By: #### C BC #### [facility] [address] [place] [address] Marlena Ciden CALCIUM 24 HR URINEon 2019 CALC, 24 HR UR 608.4 mg/24 hr Critically high 100.0-300.0 [facility] Comment on above: Performed By: #### C ALC24U #### [facility] [address] [place] [address] Marlena Kathleen UR CALCIUM 46.8 mg/dl Critically high 0.0-21.0 [facility] Comment on above: Performed By: #### C ALC24U #### [facility] [address] [place] [address] Malrena Kathleen UR TOT VOL 1300 ml/24 HR Normal [facility] Comment on above: Performed By: #### C [id number] #### [facility] [address] [place] [address] Marlena Kathleen Performed By: #### C ITRATU #### [facility] [address] [place] [address] Marlena Kathleen CHLORIDEon 03-26-2020 Chloride [Moles/Vol] 103 mmol/L Normal 98-107 [facility] Comment on above: Performed By: #### C BC #### [facility] [address] [place] [address] Marlena Kathleen CO2on 03-26-2020 CO2 [Moles/Vol] 29.1 mmol/L Normal 22.0-30.0 [facility] Comment on above: Performed By: #### C BC #### [facility] [address] [place], [place] [address] Marlena Kathleen CREA 24 HR URINEon 0 CREA, 24 HR UR 2416.57 mg/24 hr Critically high 1,000. 00-2,0 00.00 [facility] Comment on above: Performed By: #### C ITRATU #### [facility] [address] [place] [address] Marlena Kathleen URINE CREAT 185.89 mg/dL Normal 20.00-300.00 [facility] Comment on above: Performed By: #### C ITRATU #### [facility] [address] [place] [address] Marlena Kathleen CREATININEon 03-26-2020 Creatinine [Mass/Vol] 1.09 mg/dL Normal 0.66-1.25 [facility] Comment on above: Performed By: #### C BC #### [facility] [address] [place] [address] Marlena Kathleen Creatinine [Mass/Vol] mg/dL Normal >=60 [facility] Comment on above: Performed By: #### C BC #### [facility] [address] [place] [address] Marlena Kathleen NAon 03-26-2020 Sodium [Moles/Vol] 140 mmol/L Normal 137-145 [facility] Comment on above: Performed By: #### C BC #### [facility] [address] [place] [address] Marlena Kathleen POTASSIUMon 03-26-2020 Potassium [Moles/Vol] 4.0 mmol/L Normal 3.4-5.0 [facility] Comment on above: Performed By: #### C BC #### [facility] [address] [place] [address] Marlena Kathleen SODIUM 24 HR URINEon 020 NA, 24 HR UR 182 mmol/24 hr Normal 40-220 [facility] Comment on above: Performed By: #### C ITRATU #### [facility] [address] [place] [address] Marlena Kathleen Sodium (U) [Moles/Vol] 140 mmol/L Critically high 30-90 [facility] Comment on above: Performed By: #### C ITRATU #### [facility] [address] [place] [address] Marlena Kathleen URIC ACID SERUMon 03-26-2020 Urate [Mass/Vol] 5.9 mg/dL Normal 3.5-8.5 [facility] Comment on above: Performed By: #### C BC #### [facility] [address] [place] [address] Marlena Kathleen CALCULI, URINARYon 0 2,8 Dihydroxyadenine Normal [facility] Comment on above: Performed By: #### C ALCULI #### [facility] [address] [place] [address] Marlena Kathleen Ammonium Acid Urate Normal [facility] Comment on above: Performed By: #### C ALCULI #### [facility] [address] [place] [address] Marlena Kathleen Bilirubin [Mass/Vol] Normal [facility] Comment on above: Performed By: #### C ALCULI #### [facility] [address] [place] [address] Marlena Kathleen Ca Oxalate Dihydrate 90 % Normal [facility] Comment on above: Performed By: #### C ALCULI #### [facility] [address] [place] [address] Marlena Kathleen CaHPO4 (Brushite) Normal [facility] Comment on above: Performed By: #### C ALCULI #### [facility] [address] [place] [address] Marlena Kathleen Calcium Bilirubinate Normal [facility] Comment on above: Performed By: #### C ALCULI #### [facility] [address] [place] [address] Marlena Kathleen Calcium Carbonate Normal [facility] Comment on above: Performed By: #### C ALCULI #### [facility] [address] [place] [address] Marlena Kathleen Calcium Oxalate Monohydrate 5 % Normal [facility] Comment on above: Performed By: #### C ALCULI #### [facility] [address] [address] Marlena Kathleen Calcium Palmitate Normal [facility] Comment on above: Performed By: #### C ALCULI #### [facility] [address] [address] Marlena Kathleen Calcium Phosphate Normal [facility] Comment on above: Performed By: #### C ALCULI #### [facility] [address] [address] Marlena Kathleen Calcium Stearate [facility] Comment on above: Performed By: #### C ALCULI #### [facility] [address] [address] Marlena Kathleen Carbonate Apatite [facility] Comment on above: Performed By: #### C ALCULI #### [facility] [address] [place] [address] Marlena Kathleen Cellular Material [facility] Comment on above: Performed By: #### C ALCULI #### [facility] [address] [address] Marlena Kathleen Cholesterol [Mass/Vol] Normal [facility] Comment on above: Performed By: #### C ALCULI #### [facility] [address] [address] Marlena Kathleen Color (U) Chamberlain [facility] Comment on above: Performed By: #### C ALCULI #### [facility] [address] [address] Marlena Kathleen Comment Normal [facility] Comment on above: Performed By: #### C ALCULI #### [facility] [address] [address] Marlena Kathleen Comment: Comment Normal [facility] Comment on above: Result Comment: Sugar hauser questions regarding Calculi Analysis contact [facility] at: [phone]. Performed By: #### C ALCULI #### [facility] [address] [address] Marlena Kathleen Composition Comment Normal [facility] Comment on above: Result Comment: Perc entage (Represents the % composition) Performed By: #### C ALCULI #### [facility] [address] [place] [address] Marlena Kathleen Cystine Normal [facility] Comment on above: Performed By: #### C ALCULI #### [facility] [address] [place] [address] Marlena Kathleen Disclaimer: Comment Normal [facility] Comment on above: Result Comment: This test was developed and its performance characteristics determined by [employer]. It has not been cleared or approved by the Food and Drug Administration. Performed By: #### C ALCULI #### [facility] [address] [place] [address] Marlena Kathleen Dried Blood Normal [facility] Comment on above: Performed By: #### C ALCULI #### [facility] [address] [place] [address] Marlena Kathleen Drug or Metabolite Normal [facility] Comment on above: Performed By: #### C ALCULI #### [facility] [address] [place] [address] Marlena Kathleen Hydroxyapatite 5 % Normal [facility] Comment on above: Performed By: #### C ALCULI #### [facility] [address] [place] [address] Marlena Kathleen Mg NH4 PO4 (Struvite) Normal [facility] Comment on above: Performed By: #### C ALCULI #### [facility] [address] [place] [address] Marlena Kathleen MgHPO4 (Newberyite) Normal [facility] Comment on above: Performed By: #### C ALCULI #### [facility] [address] [place] [address] Marlena Kathleen Other component(s) Normal [facility] Comment on above: Performed By: #### C ALCULI #### [facility] [address] [place] [address] Marlena Kathleen PDF . Normal [facility] Comment on above: Performed By: #### C ALCULI #### [facility] [address] [address] Marlena Kathleen Photo Comment Normal [facility] Comment on above: Result Comment: Phot ograph will follow under a separate cover Performed By: #### C ALCULI #### [facility] [address] [address] Marlena Kathleen Please note: Comment Normal [facility] Comment on above: Result Comment: Calc xuan report will follow via computer, mail or learning disabled teacher delivery. Performed By: #### C ALCULI #### [facility] [address] [address] Marlena Kathleen Size 4x[address] [facility] Comment on above: Result Comment: Mult iple pieces received. Dimensions of the largest piece reported. Performed By: #### C ALCULI #### [facility] [address] [place] [address] Marlena Kathleen Sodium (U) [Moles/Vol] Normal [facility] Comment on above: Performed By: #### C ALCULI #### [facility] [address] [address] Marlena Kathleen Source Comment Normal [facility] Comment on above: Result Comment: Not provided Performed By: #### C ALCULI #### [facility] [address] [address] Marlena Kathleen Triamterene [facility] Comment on above: Performed By: #### C ALCULI #### [facility] [address] [address] Marlena Kathleen Urate [Mass/Vol] [facility] Comment on above: Performed By: #### C ALCULI #### [facility] [address] [address] Marlena Kathleen Uric Acid Dihydrate [facility] Comment on above: Performed By: #### C ALCULI #### [facility] [address] [address] Marlena Kathleen Weight [address] [facility] Comment on above: Performed By: #### C ALCULI #### [facility] [address] [address] Marlena Kathleen Xanthine Normal [facility] Comment on above: Performed By: #### C ALCULI #### [facility] [address] [place], [place] [address] Marlena Kathleen CBC AUTO DIFFon 01-29-2020 Basophils (Bld) [#/Vol] 0.0 103/ul Normal 0.0-0.1 [facility] Comment on above: Performed By: #### C BC #### [facility] [address] [place] [address] Marlena Kathleen Basophils/100 WBC (Bld) 0.5 % Normal 0.2-2.0 [facility] Comment on above: Performed By: #### C BC #### [facility] [address] [place] [address] Marlena Kathleen Eosinophils (Bld) [#/Vol] 0.4 103/ul Normal 0.0-0.7 [facility] Comment on above: Performed By: #### C BC #### [facility] [address] [place] [address] Marlena Kathleen Eosinophils/100 WBC (Bld) 4.5 % Normal 0.9-7.0 [facility] Comment on above: Performed By: #### C BC #### [facility] [address] [place] [address] Marlena Kathleen Erythrocyte distribution width (RBC) [Ratio] 12.0 % Normal 11.0-15.0 [facility] Comment on above: Performed By: #### C BC #### [facility] [address] [place] [address] Marlena Kathleen Hematocrit (Bld) [Volume fraction] 48.1 % Normal 42.0-54.0 [facility] Comment on above: Performed By: #### C BC #### [facility] [address] [place], [place] [address] Marlena Kathleen Hemoglobin (Bld) [Mass/Vol] 16.4 g/dL Normal 14.0-18.0 [facility] Comment on above: Performed By: #### C BC #### [facility] [address] [place] [address] Marlena Kathleen IG # 0.03 10e3/ul Normal 0.00-0.03 [facility] Comment on above: Performed By: #### C BC #### [facility] [address] [place] [address] Marlena Kathleen IG % 0.4 % Normal 0.0-0.5 [facility] Comment on above: Performed By: #### C BC #### [facility] [address] [place] [address] Marlena Kathleen Lymphocytes (Bld) [#/Vol] 2.4 103/ul Normal 1.2-3.8 [facility] Comment on above: Performed By: #### C BC #### [facility] [address] [place] [address] Marlena Kathleen Lymphocytes/100 WBC (Bld) 29.8 % Normal 20.5-60.0 [facility] Comment on above: Performed By: #### C BC #### [facility] [address] [place] [address] Marlena Kathleen MANUAL DIFF REQ NO Normal [facility] Comment on above: Performed By: #### C BC #### [facility] [address] [place], [place] [address] Marlena Kathleen MCH (RBC) [Entitic mass] 28.7 pg Normal 25.9-34.0 [facility] Comment on above: Performed By: #### C BC #### [facility] [address] [place] [address] Marlenajenny Wang MCHC (RBC) [Mass/Vol] 34.1 g/dL Normal 29.9-35.2 [facility] Comment on above: Performed By: #### C BC #### [facility] [address] [place], [place] [address] Marlena Kathleen MCV (RBC) [Entitic vol] 84.1 fL Normal 80.0-94.0 [facility] Comment on above: Performed By: #### C BC #### [facility] [address] [place], [place] [address] Marlena Kathleen Monocytes (Bld) [#/Vol] 0.6 103/ul Normal 0.3-0.8 [facility] Comment on above: Performed By: #### C BC #### [facility] [address] [place], [place] [address] Marlena Kathleen Monocytes/100 WBC (Bld) 7.5 % Normal 1.7-12.0 [facility] Comment on above: Performed By: #### C BC #### [facility] [address] [place], [place] [address] Marlena Kathleen Neutrophils (Bld) [#/Vol] 4.7 103/ul Normal 1.4-6.5 [facility] Comment on above: Performed By: #### C BC #### [facility] [address] [place] [address] Marlena Kathleen Neutrophils/100 WBC (Bld) 57.3 % Normal 43.0-75.0 [facility] Comment on above: Performed By: #### C BC #### [facility] [address] [place] [address] Marlena Kathleen Platelet mean volume (Bld) [Entitic vol] 10.1 fL Normal 9.5-13.5 [facility] Comment on above: Performed By: #### C BC #### [facility] [address] [place] [address] Marlena Kathleen Platelets (Bld) [#/Vol] 297 103/ul Normal 150-450 [facility] Comment on above: Performed By: #### C BC #### [facility] [address] [place], [place] [address] Marlena Katlheen RBC (Bld) [#/Vol] 5.72 106/ul Normal 4.70-6.10 [facility] Comment on above: Performed By: #### C BC #### [facility] [address] [place], [place] [id number] Marlena Kathleen WBC (Bld) [#/Vol] 8.2 103/ul Normal 4.0-11.0 [facility] Comment on above: Performed By: #### C BC #### [facility] [address] [place] [address] ABD/PELVIS WO CONon 01-28 CT ABD/PELVIS WO CON EXAMINATION: CT ABD/PELVIS WO CON HISTORY: CALCULUS OF KIDNEY COMPARISON: No relevant comparison available. TECHNIQUE: Axial, Coronal, and Sagittal images were created without IV contrast. Dose reduction techniques were achieved by using automated exposure control and/or adjustment of mA and/or kV according to patient size and/or use of iterative reconstruction technique. FINDINGS: LUNG BASES: No visible pulmonary or pleural disease. LIVER: No enlargement, atrophy, abnormal density, or significant focal lesion. BILIARY: No dilatation or calcification. PANCREAS: No lesion, fluid collection, ductal dilatation, or atrophy. SPLEEN: No enlargement or focal lesion. Incidental splenule ADRENALS: No mass or enlargement. KIDNEYS: 2.1 cm hypodensity upper pole right kidney, a simple cyst is favored. Right punctate nonobstructing nephrolithiasis. Mild to moderate left hydroureteronephrosis extending to a 4.5 mm stone at the left ureterovesical junction axial image 118 BOWEL/MESENTERY: No visible mass, obstruction, or bowel wall thickening. AORTA/VASCULAR: No aneurysm or dissection. RETROPERITONEUM: No mass or adenopathy. LYMPH NODES: No adenopathy. URINARY BLADDER: No visible focal wall thickening, lesion, or calculus. PELVIC ORGANS: No visible mass. Pelvic organs appropriate for patient age. ABDOMINAL WALL: No mass or hernia. BONES: No bony lesion or fracture. Pectus excavatum deformity OTHER: Negative. IMPRESSION: 4.5 mm left ureterovesical junction stone with mild to moderate associated obstructive uropathy Electronically authenticated by: PEREZ JAMES Date: 2020-01-29 07:13 Normal [facility] ER URINE PROFILEon 0 Bilirubin [Mass/Vol] Negative Normal NEGATIVE [facility] Comment on above: Performed By: #### C [id number] #### [facility] [address] [address] Marlena Kathleen BLOOD LARGE Normal NEGATIVE [facility] Comment on above: Performed By: #### C [id number] #### [facility] [address] [address] Marlena Kathleen Clarity (U) CLEAR Normal [facility] Comment on above: Performed By: #### C [id number] #### [facility] [address] [place] [address] Marlena Kathleen Color (U) YELLOW Normal YELLOW [facility] Comment on above: Performed By: #### C [id number] #### [facility] [address] [place] [address] Marlena Kathleen ERUAHD A micrscopic examination will be performed if indicated. Normal [facility] Comment on above: Performed By: #### C [id number] #### [facility] [address] [place] [address] Marlena Kathleen Glucose [Mass/Vol] Negative Normal NEGATIVE [facility] Comment on above: Performed By: #### C [id number] #### [facility] [address] [place] [address] Marlena Kathleen Ketones Ql (U) Negative Normal NEGATIVE [facility] Comment on above: Performed By: #### C [id number] #### [facility] [address] [place] [address] Marlena Kathleen Nitrite Ql (U) Negative Normal NEGATIVE [facility] Comment on above: Performed By: #### C [id number] #### [facility] [address] [place] [address] Marlena Kathleen pH (Bld) 5.5 Normal 5-9 [facility] Comment on above: Performed By: #### C [id number] #### [facility] [address] [place] [address] Marlena Kathleen Protein (U) [Mass/Vol] Negative Normal Th [facility] Comment on above: Performed By: #### C [id number] #### [facility] [address] [place] [address] Marlena Kathleen SPEC GRAVITY >=1.030 Normal 1.005-<=1.02 5 [facility] Comment on above: Performed By: #### C [id number] #### [facility] [address] [place] [address] Marlena Kathleen UR MICRO IND INDICATED Normal [facility] Comment on above: Performed By: #### C [id number] #### [facility] [address] [place], [place] [id number] Marlena Kathleen Urobilinogen Qn (U) 0.2 EU/dl Normal [facility] Comment on above: Performed By: #### C [id number] #### [facility] [address] [place], [place] [id number] Marlena Kathleen WBC (Bld) [#/Vol] Negative Normal NEGATIVE [facility] Comment on above: Performed By: #### C [id number] #### [facility] [address] [place], [place] [id number] Marlena Kathleen PROF 14(COMP METB)on 020 Albumin [Mass/Vol] 4.7 g/dL Normal 3.5-5.0 [facility] Comment on above: Performed By: #### C ITRATU #### [facility] [address] [place], [place] [id number] Marlena Kathleen Albumin/Globulin [Mass ratio] 1.3 {ratio} Normal [facility] Comment on above: Performed By: #### C ITRATU #### [facility] [address] [place] [address] Marlena Kathleen ALP [Catalytic activity/Vol] 86 U/L Normal 38-126 [facility] Comment on above: Performed By: #### C ITRATU #### [facility] [address] [place] [address] Marlena Kathleen ALT [Catalytic activity/Vol] 50 U/L Normal 21-72 [facility] Comment on above: Performed By: #### C ITRATU #### [facility] [address] [place] [address] Marlena Kathleen Anion gap [Moles/Vol] 14.8 mmol/L Normal [facility] Comment on above: Performed By: #### C ITRATU #### [facility] [address] [place], [place] [id number] Marlena Kathleen AST [Catalytic activity/Vol] 31 U/L Normal 17-59 [facility] Comment on above: Performed By: #### C ITRATU #### [facility] [address] [place] [address] Marlena Kathleen Bilirubin Ql (U) 0.9 mg/dL Normal 0.2-1.3 [facility] Comment on above: Performed By: #### C ITRATU #### [facility] [address] [place] [address] Marlena Kathleen Calcium [Mass/Vol] 9.2 mg/dL Normal 8.4-10.2 [facility] Comment on above: Performed By: #### C ITRATU #### [facility] [address] [place] [address] Marlena Kathleen Chloride [Moles/Vol] 102 mmol/L Normal 98-107 [facility] Comment on above: Performed By: #### C ITRATU #### [facility] [address] [place] [address] Marlena Kathleen CO2 [Moles/Vol] 28.2 mmol/L Normal 22.0-30.0 [facility] Comment on above: Performed By: #### C ITRATU #### [facility] [address] [place] [address] Marlena Kathleen Creatinine [Mass/Vol] 0.97 mg/dL Normal 0.66-1.25 [facility] Comment on above: Performed By: #### C ITRATU #### [facility] [address] [place] [address] Marlena Kathleen EGFR-AF KOSOVAN >60 Normal >=60 [facility] Comment on above: Performed By: #### C ITRATU #### [facility] [address] [place] [address] Marlena Kathleen EGFR-NON AF KOSOVAN >60 Normal >=60 [facility] Comment on above: Performed By: #### C ITRATU #### [facility] [address] [place], [place] [id number] Marlena Kathleen Globulin (S) [Mass/Vol] 3.5 g/dL Normal [facility] Comment on above: Performed By: #### C ITRATU #### [facility] [address] [place] [address] Marlena Kathleen Glucose [Mass/Vol] 103 mg/dL Normal 74-106 [facility] Comment on above: Performed By: #### C ITRATU #### [facility] [address] [place] [address] Marlena Kathleen Potassium [Moles/Vol] 4.0 mmol/L Normal 3.4-5.0 [facility] Comment on above: Performed By: #### C ITRATU #### [facility] [address] [place] [address] Marlena Kathleen Protein [Mass/Vol] 8.2 g/dL Normal 6.1-8.2 [facility] Comment on above: Performed By: #### C ITRATU #### [facility] [address] [place] [address] Marlena Kathleen Sodium [Moles/Vol] 141 mmol/L Normal 137-145 [facility] Comment on above: Performed By: #### C ITRATU #### [facility] [address] [place] [address] Marlena Kathleen Urea nitrogen [Mass/Vol] 15.0 mg/dL Normal 9.0-20.0 [facility] Comment on above: Performed By: #### C ITRATU #### [facility] [address] [place], [place] [id number] Marlena Kathleen Urea nitrogen/Creatinine [Mass ratio] 15.5 mg/mg Normal [facility] Comment on above: Performed By: #### C ITRATU #### [facility] [address] [place] [address] Marlena Kathleen URINE MICROSCOPIC ONLYon Bacteria LM.HPF (Urine sed) [#/Area] NONE SEEN Normal NONE SEEN [facility] Comment on above: Performed By: #### C [id number] #### [facility] [address] [place] [address] Marlena Kathleen CAST NONE SEEN Normal NONE SEEN [facility] Comment on above: Performed By: #### C [id number] #### [facility] [address] [place], [place] [id number] Marlena Kathleen Crystals LM Nom (Urine sed) NONE SEEN Normal NONE SEEN [facility] Comment on above: Performed By: #### C [id number] #### [facility] [address] [id number] Marlena Kathleen CULTURE NOT INDICATED Normal [facility] Comment on above: Performed By: #### C [id number] #### [facility] [address] [place], [place] [address] Marlena Kathleen Epithelial cells LM.HPF (Urine sed) [#/Area] FEW Normal [facility] Comment on above: Performed By: #### C [id number] #### [facility] [address] [place], [place] [address] Marlena Kathleen MUCOUS SMALL Normal NONE SEEN [facility] Comment on above: Performed By: #### C [id number] #### [facility] [address] [place], [place] [id number] Marlena Kathleen RBC (U) [#/Vol] 10-20 Normal 0-2 [facility] Comment on above: Performed By: #### C [id number] #### [facility] [address] [id number] Marlena Kathleen WBC (Bld) [#/Vol] NONE SEEN Normal NONE SEEN [facility] Comment on above: Performed By: #### C [id number] #### [facility] [address] [place], [place] [id number] Marlena Kathleen Vital Signs Date Time Vital Sign Value Performing Clinician Facility 03-01-2024 13:47-0400 Body height 190.5 cm [facility] 03-01-2024 13:47-0400 Body mass index (BMI) [Ratio] 28.1 kg/m2 [facility] 03-01-2024 13:47-0400 Body temperature 99.1 [degF] [facility] 03-01-2024 13:47-0400 Body weight 102.05 kg [facility] 03-01-2024 13:47-0400 Diastolic blood pressure 80 mm[Hg] [facility] 03-01-2024 13:47-0400 Heart rate 88 /min [facility] 03-01-2024 13:47-0400 Respiratory rate 18 /min [facility] 03-01-2024 13:47-0400 SaO2% (BldA) [Mass fraction] 96 % [facility] 03-01-2024 13:47-0400 Systolic blood pressure 125 mm[Hg] [facility] 11-17-2023 08:08-0400 Body height 190.5 cm DO Perez Brock Work Phone: [facility] 11-17-2023 08:08-0400 Body mass index (BMI) [Ratio] 27.8 kg/m2 DO Perez Brock Work Phone: [facility] 11-17-2023 08:08-0400 Body temperature 98.2 [degF] DO Perez Brock Work Phone: [facility] 11-17-2023 08:08-0400 Body weight 101.15 kg DO Perez Brock Work Phone: [facility] 11-17-2023 08:08-0400 Diastolic blood pressure 76 mm[Hg] DO Perez Brock Work Phone: [facility] 11-17-2023 08:08-0400 Heart rate 68 /min DO Perez Brock Work Phone: [facility] 11-17-2023 08:08-0400 Respiratory rate 16 /min DO Perez Brock Work Phone: [facility] 11-17-2023 08:08-0400 SaO2% (BldA) [Mass fraction] 99 % DO Perez Brock Work Phone: [facility] 11-17-2023 08:08-0400 Systolic blood pressure 114 mm[Hg] DO Perez Brock Work Phone: [facility] 06-11-2023 09:35-0500 Diastolic blood pressure 77 mm[Hg] Danette Lue [facility] 06-11-2023 09:35-0500 Mean blood pressure 97 mm[Hg] Danette Lue [facility] 06-11-2023 09:35-0500 Systolic blood pressure 136 mm[Hg] Danette Lue [facility] 06-11-2023 09:16-0500 Blood Pressure Location Danette Lue [facility] 06-11-2023 09:16-0500 Diastolic blood pressure 92 mm[Hg] Danette Lue [facility] 06-11-2023 09:16-0500 Heart rate 92 /min Danette Lue [facility] 06-11-2023 09:16-0500 Systolic blood pressure 146 mm[Hg] Danette Lue [facility] 03-31-2023 15:00-0400 Body height 190.5 cm Perez Brock Other [employer] [facility] Other 03-31-2023 15:00-0400 Body mass index (BMI) [Ratio] 26.87 kg/m2 Perez Brock Other [employer] [facility] Other 03-31-2023 15:00-0400 Body temperature 98.7 [degF] Perez Brock Other [employer] [facility] Other 03-31-2023 15:00-0400 Body weight 97.52 kg Perez Brock Other [employer] Other 03-31-2023 15:00-0400 Diastolic blood pressure 82 mm[Hg] Perez Brock Other [employer] Other 03-31-2023 15:00-0400 Respiratory rate 18 /min Perez Brock Other [facility] Other 03-31-2023 15:00-0400 SaO2% (BldA) [Mass fraction] 97 % Perez Brock Other [facility] Other 03-31-2023 15:00-0400 Systolic blood pressure 116 mm[Hg] Perez Brock Other [facility] Other 03-26-2023 15:17-0400 Blood Pressure Location Danette Lue [facility] 03-26-2023 15:17-0400 Diastolic blood pressure 77 mm[Hg] Danette Lue [facility] 03-26-2023 15:17-0400 Heart rate 90 /min Danette Lue [facility] 03-26-2023 15:17-0400 Systolic blood pressure 144 mm[Hg] Danette Lue [facility] Encounters Encounter Date Encounter Type Care Provider Facility Start: 04-28-2024 ambulatory Danette García Facility:[facility] Start: 03-31-2024 End: 03-31-2024 ambulatory DO Perez Brock Work Phone: [facility] Work Phone: Start: 03-31-2024 End: 03-31-2024 Patient encounter procedure DO Perez Brock Work Phone: [facility] [place] Work Phone: Start: 03-11-2024 Non-patient / Non-visit DO Moisés Brock Work Phone: [facility] Work Phone: Start: 03-04-2024 End: 03-04-2024 ambulatory WILL[facility] PLA[facility] Start: 03-01-2024 End: 03-01-2024 ambulatory Maurilio Araujo RN [facility] Work Phone: Start: 03-01-2024 End: 03-01-2024 Patient encounter procedure [facility] Work Phone: Start: 01-07-2024 End: 01-07-2024 Patient encounter procedure Andrology [employer] Work Phone: [facility] Comment on above: Procreative manageme nt Procreative manageme nt (Primary Dx) Start: 01-07-2024 End: 01-07-2024 ambulatory ANGEL EASLEY Facility:[facility] Start: 12-15-2023 End: 12-15-2023 Patient encounter procedure Andrology [employer] Work Phone: [facility] Comment on above: Encounter for invest igation and testing for procreative management Procreative manageme nt (Primary Dx) Start: 12-15-2023 End: 12-15-2023 ambulatory EVERARDO CHARLEENROBERTO Facility:[facility] Start: 11-17-2023 End: 11-17-2023 ambulatory DO Perez Brock Work Phone: [facility] Work Phone: Start: 11-17-2023 End: 11-17-2023 Patient encounter procedure DO Perez Brock Work Phone: [facility] Family Medicine D Hanis Work Phone: Start: 11-13-2023 End: 11-13-2023 ambulatory Perez Brock Facility:[facility] Start: 11-13-2023 End: 11-13-2023 ambulatory DO Perez Brock Work Phone: [facility] Work Phone: Start: 11-13-2023 End: 11-13-2023 Patient encounter procedure DO Perez Brock Work Phone: [facility] [place] Work Phone: Start: 11-04-2023 End: 11-04-[address] [facility] Start: 10-21-2023 End: 10-21-2023 ambulatory JESSE SABINECHANIAK Facility:[facility] Start: 09-22-2023 Non-patient / Non-visit DO Moisés Brock Work Phone: [facility] Work Phone: Start: 09-22-2023 End: 09-22-2023 ambulatory ANGEL TRACEE Facility:[facility] Start: 09-22-2023 End: 09-22-2023 Patient encounter procedure Andrology [employer] Work Phone: [facility] Comment on above: Encounter for invest igation and testing for procreative management Start: 08-27-2023 End: 08-27-2023 ambulatory ANGEL TRACEE Facility:[facility] Start: 08-27-2023 End: 08-27-2023 Patient encounter procedure Andrology [employer] Work Phone: [facility] Comment on above: Encounter for invest igation and testing for procreative management (Primary Dx) Start: 06-11-2023 End: 06-11-2023 ambulatory Danette García Facility: [facility] Start: 06-11-2023 End: 06-11-2023 Patient encounter procedure Danette García [facility] Start: 05-12-2023 End: 05-12-2023 ambulatory Perez Brock Other [facility] Other Start: 05-12-2023 Telephone encounter Perez Brock [facility] Start: 04-19-2023 End: 04-19-2023 Lab Drop off Danette García [facility] Start: 04-19-2023 End: 04-19-2023 ambulatory Danette García Facility:[facility] Start: 04-19-2023 End: 04-19-2023 Patient encounter procedure Danette García [facility] Start: 04-15-2023 End: 04-15-2023 ambulatory Perez Brock Other [employer] Other Start: 04-15-2023 Telephone encounter Perez Brock [facility] Start: 04-14-2023 End: 04-14-2023 ambulatory Danette García Facility:[facility] Start: 04-14-2023 End: 04-14-2023 ambulatory DO Perez Brock Work Phone: [facility] Work Phone: Start: 04-14-2023 End: 04-14-2023 Patient encounter procedure DO Perez Brock Work Phone: [facility] Work Phone: Start: 03-31-2023 End: 03-31-2023 ambulatory Perez Brock Other [facility] Other Start: 03-31-2023 Office outpatient vi sit 15 minutes Perez Brock [facility] Start: 03-26-2023 End: 03-26-2023 Patient encounter procedure Danette García [facility] Start: 03-23-2023 End: 03-23-2023 ambulatory Perez Brock Facility:[facility] Start: 03-23-2023 End: 03-23-2023 ambulatory DO Perez Brock Work Phone: [facility] Work Phone: Start: 03-23-2023 End: 03-23-2023 Patient encounter procedure DO Perez Brock Work Phone: [facility] [place] Work Phone: Start: 02-10-2023 End: 02-10-2023 ambulatory Perez Brock Facility:[facility] Start: 02-10-2023 End: 02-10-2023 Patient encounter procedure DO Perez Pradhaneugenia Work Phone: [facility] [place] Work Phone: Start: 02-01-2023 End: 02-01-2023 Patient encounter procedure Danette García [facility] Start: 01-20-2023 End: 01-20-2023 ambulatory Danette García Facility:[facility] Start: 01-20-2023 End: 01-20-2023 ambulatory DO Perez Pradhaneugenia Work Phone: [facility] Work Phone: Start: 01-20-2023 End: 01-20-2023 Patient encounter procedure DO Perez Pradhaneugenia Work Phone: [facility] [place] Work Phone: Start: 01-11-2023 End: 01-11-2023 Patient encounter procedure Danette García [facility] Start: 01-05-2023 End: 01-05-2023 ambulatory Perez Brock Facility:[facility] Start: 01-05-2023 End: 01-05-2023 Patient encounter procedure DO Perez Brock Work Phone: [facility] [place] Work Phone: Start: 10-31-2022 End: 10-31-2022 ambulatory DO Perez Brock Work Phone: [facility] Work Phone: Start: 10-31-2022 End: 10-31-2022 Patient encounter procedure DO Perez Brock Work Phone: [facility] [place] Work Phone: Start: 06-05-2020 End: 06-06-2020 Patient encounter procedure JORJE PELLETIER Facility:[facility] Start: 05-24-2020 End: 05-25-2020 Patient encounter procedure IGNACIO MULTERRYVALENTINA Facility:[facility] Start: 03-26-2020 End: 03-27-2020 Patient encounter procedure IGNACIO CARRILLO Facility:[facility] Start: 02-14-2020 End: 02-14-2020 Patient encounter procedure PEREZ BROCK Facility:[facility] Start: 01-29-2020 End: 01-29-2020 Patient encounter procedure DOCTOR MISC Facility:[facility] Start: 10-01-2015 Refill Hao Jefferson MD Work Phone: [facility] Procedures Date Procedure Procedure Detail Performing Clinician Start: 03-31-2024 Ultrasonography of b ilateral kidneys DO Perez Brock Work Phone: Start: 03-31-2024 Diagnostic radiograp hy of abdomen DO Perez Brock Work Phone: Start: 04-14-2023 X-ray of lumbar spin e, six views including bending views DO Perez Brock Work Phone: Start: 03-23-2023 Diagnostic radiograp hy of abdomen DO Perez Brock Work Phone: Start: 02-23-2023 Extracorporeal shock wave lithotripsy of calculus of kidney Danette Lue Start: 02-10-2023 Diagnostic radiograp hy of abdomen DO Perez Brock Work Phone: Start: 01-20-2023 CT of urinary tract DO Perez Brock Work Phone: Start: 01-11-2023 Cystoscopy Danette Lue Start: 01-05-2023 Ultrasonography of b ilateral kidneys DO Perez Brock Work Phone: Plan of Treatment Date Care Activity Detail Author Start: 03-26-2024 Influenza vaccination C [facility] Start: 01-07-2024 End: 04-07-2024 [facility] Work Phone: Comment on above: Expected: 01/07/2024 , Expires: 04/07/2024 Start: 12-15-2023 End: 03-15-2024 [employer] Work Phone: Comment on above: Expected: 12/15/2023 , Expires: 03/15/2024 Start: 11-17-2023 Patient referral [facility] Work Phone: Start: 07-26-2023 Behavioral Health Screening Behavioral Health Screening [facility] Start: 07-26-2023 Depression Assessment Depression Ass essment [facility] Start: 03-26-2023 Covid-19 Vaccine ( season) Covid-19 Vaccine ( season) [facility] Start: 03-26-2023 Influenza vaccination Influenza Vacc ine (#1) [facility] Start: 03-26-2022 Influenza vaccination Sequenti al Influenza Vaccine (#1) [facility] Start: 12-19-2018 Urine microalbumin profile DTaP,Tdap,Td Vaccine (2 - Td or Tdap) [facility] Start: 2016 Hepatitis B Vaccine (1 of 3 - 19+ 3-dose series) Hepatitis B Vaccine (1 of 3 - 19+ 3-dose series) [facility] Start: 2015 Anxiety Screening Anxiety Screening [facility] Start: 2015 Depression Screening Depression Scre ening [facility] Start: 2015 Hepatitis C screening Hepatitis C Sc reening [facility] Start: 2015 HIV screening HIV Screening [facility] Start: 2012 HIV screening HIV Screening [facility] Start: 2012 HPV Vaccine (1 - Mal e 3-dose series) HPV Vaccine (1 - Male 3-dose series) [facility] Start: 2011 Peds To Adult Transi tion Annual Assessment Peds To Adult Transition Annual Assessment [facility] Start: 2009 Depression screening using PHQ-9 (Patient Health Questionnaire 9) score Depression Screening (PHQ-2/9) [facility] Start: 2009 Peds To Adult Transi tion Initial Discussion Peds To Adult Transition Initial Discussion [facility] Start: 2008 Vaccination for marilynn n papillomavirus HPV Vaccines (1 - Male 2-dose series) [facility] Start: 2006 HPV Vaccine (1 - Mal e 2-dose series) HPV Vaccine (1 - Male 2-dose series) [facility] Start: 2000 History and physical examination, annual for health maintenance Wellness Visit [facility] Start: 1997 COVID-19 Vaccine (#1) COVID-19 Vacci ne (#1) [facility] Start: 1997 Hepatitis B Vaccine (1 of 3 - 3-dose series) Hepatitis B Vaccine (1 of 3 - 3-dose series) [facility] Start: 1997 Tetanus vaccination Tetanus: Every 1 0yrs [facility] Calcium.ionized [Mass/volume] in Serum or Plasma by Ion-selective membrane electrode (ISE) [facility] Patient referral [facility] Work Phone: End: 08-25-2024 SPERM WASH GRADIENT SPERM WASH GRADIENT Andrology Routine Encounter for investigation and testing for procreative management Once per month for 4 Occurrences starting 08/26/2023 until 08/25/2024, 1 completed [facility] Work Phone: Comment on above: Once per month for 4 Occurrences starting 08/26/2023 until 08/25/2024, 1 completed SPERM WASH GRADIENT SPERM WASH G RADIENT Andrology Routine Encounter for investigation and testing for procreative management 08/27/2023 1:55 PM EST [facility] Work Phone: SPERM WASH GRADIENT SPERM WASH G RADIENT Andrology Routine Encounter for investigation and testing for procreative management 09/22/2023 1:50 PM EST [facility] Work Phone: Immunizations Immunization Date Immunization Notes Care Provider Fa clary 06-23-2021 influenza virus vacc ine, unspecified formulation Danette García [facility] 06-23-2021 SARS-CoV-2 (COVID-19 ) Ad26 vaccine, recombinant Danette Lue [facility] 02-20-2015 hepatitis A vaccine, unspecified formulation Danette Lue [facility] 11-22-2013 meningococcal ACWY vaccine, unspecified formulation Danette Lue [facility] 12-19-2008 meningococcal ACWY vaccine, unspecified formulation Danette Lue [facility] 12-19-2008 tetanus toxoid, redu francisco diphtheria toxoid, and acellular pertussis vaccine, adsorbed Danette Lue [facility] 12-19-2008 varicella virus vaccine Daphnie y Lue [facility] Payers Date Payer Category Payer Unknown [id number] 2023 Private Health Insurance YAYA STERLING OAP [id number] 2023-[facility] [phone] [facility] [id number] [place] [address] Open Access [id number] 2023 Self-pay [id number] 2021 Private Health Insurance [id number] 2021 Private Health Insurance [id number] 2013 Medicaid [employer] MEDICA[employer] MEDICA[employer] [id number] 2013-Present [phone] [address] [place] [address] [id number] 1997 Unknown [id number] [id number] .593 1997 Unknown [id number] 2.16.840.1.902749.3.579.2 .593 1997 Unknown [id number] 2.16.840.1.693856.3.579.2 .593 1997 Unknown [id number] 2.16.840.1.121699.3.579.2 .593 1997 Unknown [id number] 2.16.840.1.054533.3.579.2 .593 1997 Unknown [id number] 2.16.840.1.737456.3.579.2 .593 1997 Unknown [id number] 2.16.840.1.242637.3.579.2 .1286 1997 Unknown [id number] 2.16.840.1.251786.3.579.2 .727 1997 Unknown [id number] 2.16.840.1.452151.3.579.2 .727 1997 Unknown [id number] 2.16.840.1.212905.3.579.2 .727 1997 Unknown [id number] 2.16.840.1.064133.3.579.2 .727 Medicaid [employer] [id number] Unknown [id number] Unknown [id number] [id number] .531 Unknown [id number] 2.16.840.1.650864.3.579.2 .531 Unknown [id number] 2.16.840.1.789886.3.579.2 .531 Unknown [id number] 2.16.840.1.188639.3.579.2 .531 Unknown [id number] 2.16.840.1.116063.3.579.2 .531 Unknown [id number] 2.16.840.1.201243.3.579.2 .531 Social History Date Type Detail [facility] Start: 1997 Sex Assigned At Not on file [facility] Start: 1997 Sex Assigned At Male [facility] Start: 01-01-2023 End: 11-17-2023 Tobacco smoking status Never smoked tobacco (finding) [facility] Tobacco smoking status Never [facility] Start: 08-27-2023 Sex Assigned At Male [facility] Start: 08-27-2023 History of Social function [facility] Start: 08-16-2023 Gender identity Identifies as male gender (finding) [facility] Start: 08-16-2023 Sexual orientation Heterosexual (finding) [facility] Functional Status Date Assessment Result Facility 06-11-2023 Functional Status N/A [facility] 03-26-2023 Functional Status N/A [facility] 02-01-2023 Functional Status N/A [facility] 01-11-2023 Functional Status N/A [facility] Clinical Notes 10-31-2022 to 03-01-2024 Maurilio Araujo RN - 03/01/2024 2:55 PM Zee Hou - 01/07/2024 1:15 PM Lindsey Abraham APRN.CNP - 12/15/2023 5:11 PM Zee Hou - 12/15/2023 4:18 PM EDT Note Date & Type Note Facility 03-01-2024 Note HNO ID: [id number] Author: MAURILIO ARAUJO RN Service: ? Author Type: Registered Nurse Type: Progress Notes Filed: 03/01/2024 14:59 Note Text: Letter sent to patient to get STD panel done at lab closer to home. Mychart sent to Jenn de la cruz to notify.. Maurilio Araujo RN March 01, 2024 2:55 PM [facility] 03-01-2024 History of Presen t illness Narrative Letter sent to patient to get STD panel done at lab closer to home. Mychart sent to Jenn de la cruz to notify.. Maurilio Araujo RN March 01, 2024 2:55 PM documented in this encounter [facility] 01-07-2024 Note HNO ID: [id number] Author: ZEE DAMIAN, ? Service: ? Author Type: ? Type: Progress Notes Filed: 01/07/2024 14:43 Note Text: Semen Wash for IUI Zee Christine [facility] 01-07-2024 History of Presen t illness Narrative Semen Wash for IUI Zee Christine documented in this encounter [facility] 12-15-2023 Note HNO ID: [id number] Author: LINDSEY BLACKWOOD APRN.CNP Service: ? Author Type: Nurse Practitioner Type: Progress Notes Filed: 12/15/2023 17:12 Note Text: ordrs for sperm wash for iui done today. Lindsey Blackwood APRN.CNP December 15, 2023 5:12 PM [facility] 12-15-2023 History of Presen t illness Narrative ordrs for sperm wash for iui done today. Lindsey Blackwood APRN.CNP December 15, 2023 5:12 PM Electronically signed by Lindsey Blackwood DIRECTOR STRATEGIC ACCOUNT MANAGEMENT.INSPECTOR SUBASSEMBLY at 12/15/2023 5:12 PM EDT documented in this encounter [facility] 12-15-2023 Note HNO ID: [id number] Author: ZEE DAMIAN, ? Service: ? Author Type: ? Type: Progress Notes Filed: 12/15/2023 16:18 Note Text: [facility] History of Presen t illness Narrative Semen Wash for IUI Zee Neally documented in this encounter [facility] 10-21-2023 Note HNO ID: [id number] Author: ZEE DAMIAN, ? Service: ? Author Type: ? Type: Progress Notes Filed: 10/21/2023 15:17 Note Text: Semen Wash for MANJU Stafford Christine [facility] 09-22-2023 Note HNO ID: [id number] Author: ZEE DAMIAN, ? Service: ? Author Type: ? Type: Progress Notes Filed: 09/22/2023 15:49 Note Text: Semen Wash for MANJU Stafford Christine [facility] 09-22-2023 History of Presen t illness Narrative Semen Wash for IUI Zee Neally documented in this encounter [facility] 08-27-2023 Note HNO ID: [id number] Author: ZEE DAMIAN, ? Service: ? Author Type: ? Type: Progress Notes Filed: 08/27/2023 15:42 Note Text: Semen Wash for IUI Zee Christine [facility] 08-27-2023 History of Presen t illness Narrative Semen Wash for IUI Zee Neally documented in this encounter [facility] 06-11-2023 Hospital Discharg e instructions Patient Education 06/11/2023 10:07:57 Dietary Guidelines to Help Prevent Kidney Stones Dietary Guidelines to Help Prevent Kidney Stones Kidney stones are deposits of minerals and salts that form inside your kidneys. Your risk of developing kidney stones may be greater depending on your diet, your lifestyle, the medicines you take, and whether you have certain medical conditions. Most people can lower their chances of developing kidney stones by following the instructions below. Your dietitian may give you more specific instructions depending on your overall health and the type of kidney stones you tend to develop. What are tips for following this plan? Reading food labels Choose foods with no salt added or low-salt labels. Limit your salt (sodium) intake to less than 1,500 mg a day. Choose foods with calcium for each meal and snack. Try to eat about 300 mg of calcium at each meal. Foods that contain 200 500 mg of calcium a serving include: ?8 oz (237 mL) of milk, cgvzdkv-aaxpabgumotd-vzslg milk, and calcium-fortifiedfruit juice. Calcium-fortified means that calcium has been added to these drinks. ?8 oz (237 mL) of kefir, yogurt, and soy yogurt. ?4 oz (114 g) of tofu. ?1 oz (28 g) of cheese. ?1 cup (150 g) of dried figs. ?1 cup (91 g) of cooked broccoli. ?One 3 oz (85 g) can of sardines or mackerel. Most people need 1,000 1,500 mg of calcium a day. Talk to your dietitian about how much calcium is recommended for you. Shopping Buy plenty of fresh fruits and vegetables. Most people do not need to avoid fruits and vegetables, even if these foods contain nutrients that may contribute to kidney stones. When shopping for convenience foods, choose: ?Whole pieces of fruit. ?Pre-made salads with dressing on the side. ?Low-fat fruit and yogurt smoothies. Avoid buying frozen meals or prepared deli foods. These can be high in sodium. Look for foods with live cultures, such as yogurt and kefir. Choose high-fiber grains, such as whole-wheat breads, oat bran, and wheat cereals. Cooking Do not add salt to food when cooking. Place a salt shaker on the table and allow each person to add his or her own salt to taste. Use vegetable protein, such as beans, textured vegetable protein (TVP), or tofu, instead of meat in pasta, casseroles, and soups. Meal planning Eat less salt, if told by your dietitian. To do this: ?Avoid eating processed or pre-made food. ?Avoid eating fast food. Eat less animal protein, including cheese, meat, poultry, or fish, if told by your dietitian. To do this: ?Limit the number of times you have meat, poultry, fish, or cheese each week. Eat a diet free of meat at least 2 days a week. ?Eat only one serving each day of meat, poultry, fish, or seafood. ?When you prepare animal protein, cut pieces into small portion sizes. For most meat and fish, one serving is about the size of the palm of your hand. Eat at least five servings of fresh fruits and vegetables each day. To do this: ?Keep fruits and vegetables on hand for snacks. ?Eat one piece of fruit or a handful of berries with breakfast. ?Have a salad and fruit at lunch. ?Have two kinds of vegetables at dinner. Limit foods that are high in a substance called oxalate. These include: ?Spinach (cooked), rhubarb, beets, sweet potatoes, and [place] chard. ?Peanuts. ?Potato chips, slovenian fries, and baked potatoes with skin on. ?Nuts and nut products. ?Chocolate. If you regularly take a diuretic medicine, make sure to eat at least 1 or 2 servings of fruits or vegetables that are high in potassium each day. These include: ?Avocado. ?Banana. ?Delta, prune, carrot, or tomato juice. ?Baked potato. ?Cabbage. ?Beans and split peas. Lifestyle Drink enough fluid to keep your urine pale yellow. This is the most important thing you can do. Spread your fluid intake throughout the day. If you drink alcohol: ?Limit how much you use to: ?0 1 drink a day for women who are not . ?0 2 drinks a day for men. ?Be aware of how much alcohol is in your drink. In the [place] one drink equals one 12 oz bottle of beer (355 mL), one 5 oz glass of wine (148 mL), or one 1 oz glass of hard liquor (44 mL). Lose weight if told by your health care provider. Work with your dietitian to find an eating plan and weight loss strategies that work best for you. General information Talk to your health care provider and dietitian about taking daily supplements. You may be told the following depending on your health and the cause of your kidney stones: ?Not to take supplements with vitamin C. ?To take a calcium supplement. ?To take a daily probiotic supplement. ?To take other supplements such as magnesium, fish oil, or vitamin B6. Take epcb-zzl-btrpcpp and prescription medicines only as told by your health care provider. These include supplements. What foods should I limit? Limit your intake of the following foods, or eat them as told by your dietitian. Vegetables Spinach. Rhubarb. Beets. Canned vegetables. Pickles. Olives. Baked potatoes with skin. Grains Wheat bran. Baked goods. Salted crackers. Cereals high in sugar. Meats and other proteins Nuts. Nut butters. Large portions of meat, poultry, or fish. Salted, precooked, or cured meats, such as sausages, meat loaves, and hot dogs. Dairy Cheese. Beverages Regular soft drinks. Regular vegetable juice. Seasonings and condiments Seasoning blends with salt. Salad dressings. Soy sauce. Ketchup. Barbecue sauce. Other foods Canned soups. Canned pasta sauce. Casseroles. Pizza. Lasagna. Frozen meals. Potato chips. [place]an fries. The items listed above may not be a complete list of foods and beverages you should limit. Contact a dietitian for more information. What foods should I avoid? Talk to your dietitian about specific foods you should avoid based on the type of kidney stones you have and your overall health. Fruits Grapefruit. The item listed above may not be a complete list of foods and beverages you should avoid. Contact a dietitian for more information. Summary Kidney stones are deposits of minerals and salts that form inside your kidneys. You can lower your risk of kidney stones by making changes to your diet. The most important thing you can do is drink enough fluid. Drink enough fluid to keep your urine pale yellow. Talk to your dietitian about how much calcium you should have each day, and eat less salt and animal protein as told by your dietitian. This information is not intended to replace advice given to you by your health care provider. Make sure you discuss any questions you have with your health care provider. Document Revised: 03/23/2022 Document Reviewed: 03/23/2022 [employer] Patient Education 2022 [employer]. 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 He does not recall any major injury to his back. His back is bothering him and he thought it was due to his bed. He wakes up and his back is uncomfortable. Mar, Lumbar pain (ICD-10 - M54.50) When he had a cystoscope done he had a difficult time getting up due to the back pain. He sleeps on his back or side and uses a pillow in between his legs. He also wears a back brace when needed which helps some. I did independently review his CT scan from 01/20/23 with him today. Results showed bilateral L5 pars defects are noted with grade 1 spondylolisthesis of L5 upon S1. I did explain to him that we need to find out if this is stable or unstable. I would like to order an xray of the lumbar spine with flexion/extension. Based on these results we can determine if he needs to see a specialist or if he needs to attend a good physical therapy program. He is in agreement. I did provide him with an order for physical therapy but he is to wait to do this until he has heard the results of the x-ray. Mar, Anxiety (ICD-10 - F41.9) He has found that he clenches his teeth all the time, his dentist has noticed this and they wanted to make some corrections but first he wanted to see if he could treat his anxiety. He was on Lexapro in the past but would like to try something different. He only feels depressed maybe one day a week, otherwise he feels mostly anxious. He and his have been trying to start a family for about a year and it is not going well so this is causing him to not be as happy. He voices that this is starting to weigh on him. We discussed Buspar and that this treats anxiety and not depression. He is not currently on any medication. I did explain to him that this medication would need to be started at a low dose and we could titrate the dose slowly. He is willing to try this. Guidance is given on how to take the medicine. He is to take the first three pills and break them in half and take 1/2 tablet in the evening, and then in the morning and evening for three days and then he can increase to 1 tablet twice a day if he is doing well. Do not take Ecstasy. He is to keep me posted with how he is doing so we can determine if his dose needs to be increased. Mar, Renal calculi (ICD-1 0 - N20.0) He follows with Dr. García for evaluation of kidney stones, they are trying to determine why he forms kidney stones, looking for metabolic causes. He does not currently have any kidney stones. [employer] Other 09-01-2023 Hospital Discharge instructions Patient Education 03/26/2023 16:09:21 24-Hour Urine Collection 24-Hour Urine Collection Why am I having this test? A 24-hour urine specimen is a lab test that requires you to collect all of your urine for an entireday. This is sometimes called a timed urine test. It can provide more information than a single urine sample. There are many reasons to have this test. Your health care provider may order the test to check foror monitor the following conditions: High blood pressure. Kidney disease. Kidney stones. Urinary tract infections. . Diabetes. How do I prepare for this test? You may be asked to follow a special diet during or before the collection period. Follow any instructions from your health care provider. If no special instructions are given, you may eat and drink normally. Take ndhq-asf-cnvnrbv and prescription medicines only as told by your health care provider. Let your health care provider know about any medicines that you are taking, including vybi-oxb-chmngbl medicines, vitamins, herbs, and supplements. Choose a collection day when you can be at home or when you have a place to store the urine. All urine must be collected during the testing period. How do I do a 24-hour urine collection? When you get up in the morning, urinate in the toilet and flush. Write down the time. This will be your start time on the day of collection and your end time on the next morning. From the start time on, all of your urine should be kept in the collection jug that you received from the lab. If the jug that is given to you already has liquid in it, that is okay. Do not throw out the liquidor rinse out the jug. Urinate into a specimen container, such as a urinal or alexander that sits over the toilet. Pour the urine from the container into the collection jug. Be careful not to spill any of the urine. Use the equipment provided by the lab. Do not let any toilet paper or stool (feces) get into the jug. This will contaminate the sample. Stop collecting your urine 24 hours after you started. Collect the last specimen as close as possible to the end of the 24-hour period. Keep the jug cool in an ice chest or keep it in the refrigerator during collection. When the 24-hour collection is complete, take the jug to the lab as soon as possible. Keep the jug cool in an ice chest while you are bringing it to the lab. What do the results mean? Talk with your health care provider about what your results mean. Questions to ask your health care provider Ask your health care provider, or the department that is doing the test: When will my results be ready? How will I get my results? What are my treatment options? What other tests do I need? What are my next steps? Summary A 24-hour urine specimen is a lab test that requires you to collect all of your urine for an entireday. When you get up in the morning, urinate in the toilet and flush. Write down the time. For the next 24 hours, collect all of your urine in the collection jug that you received from the lab. Keep the jug cool while collecting the urine and while bringing it back to the lab. Take the jug of urine back to the lab as soon as possible after the collection period has ended. This information is not intended to replace advice given to you by your health care provider. Make sure you discuss any questions you have with your health care provider. Document Revised: 01/16/2022 Document Reviewed: 01/16/2022 [employer] Patient Education 2022 [employer]. Follow Up Care 02/26/2023 15:22:37 With:Ricky SAWYER, FLORIN Morales, [facility] Address: When: Unknown [facility] 07-10-2023 Hospital Discharge instructions Patient Education 02/01/2023 16:08:43 Kidney Stones, Uvvv-zd-Lprm Kidney Stones Kidney stones are rock-like masses that form inside of the kidneys. Kidneys are organs that make pee (urine). A kidney stone may move into other parts of the urinary tract, including: The tubes that connect the kidneys to the bladder (ureters). The bladder. The tube that carries urine out of the body (urethra). Kidney stones can cause very bad pain and can block the flow of pee. The stone usually leaves your body (passes) through your pee. You may need to have a doctor take out the stone. What are the causes? Kidney stones may be caused by: A condition in which certain glands make too much parathyroid hormone (primary hyperparathyroidism). A buildup of a type of crystals in the bladder made of a chemical called uric acid. The body makes uric acid when you eat certain foods. Narrowing (stricture) of one or both of the ureters. A kidney blockage that you were born with. Past surgery on the kidney or the ureters, such as gastric bypass surgery. What increases the risk? You are more likely to develop this condition if: You have had a kidney stone in the past. You have a family history of kidney stones. You do not drink enough water. You eat a diet that is high in protein, salt (sodium), or sugar. You are overweight or very overweight (obese). What are the signs or symptoms? Symptoms of a kidney stone may include: Pain in the side of the belly, right below the ribs (flank pain). Pain usually spreads (radiates) to the groin. Needing to pee often or right away (urgently). Pain when going pee (urinating). Blood in your pee (hematuria). Feeling like you may vomit (nauseous). Vomiting. Fever and chills. How is this treated? Treatment depends on the size, location, and makeup of the kidney stones. The stones will often pass out of the body through peeing. You may need to: Drink more fluid to help pass the stone. In some cases, you may be given fluids through an IV tube put into one of your veins at the hospital. Take medicine for pain. Make changes in your diet to help keep kidney stones from coming back. Sometimes, medical procedures are needed to remove a kidney stone. This may involve: A procedure to break up kidney stones using a beam of light (laser) or shock waves. Surgery to remove the kidney stones. Follow these instructions at home: Medicines Take sdtq-psi-opngnod and prescription medicines only as told by your doctor. Ask your doctor if the medicine prescribed to you requires you to avoid driving or using heavy machinery. Eating and drinking Drink enough fluid to keep your pee pale yellow. You may be told to drink at least 8 10 glasses of water each day. This will help you pass the stone. If told by your doctor, change your diet. This may include: ?Limiting how much salt you eat. ?Eating more fruits and vegetables. ?Limiting how much meat, poultry, fish, and eggs you eat. Follow instructions from your doctor about eating or drinking restrictions. General instructions Collect pee samples as told by your doctor. You may need to collect a pee sample: ?24 hours after a stone comes out. ?8 12 weeks after a stone comes out, and every 6 12 months after that. Strain your pee every time you pee (urinate), for as long as told. Use the strainer that your doctor recommends. Do not throw out the stone. Keep it so that it can be tested by your doctor. Keep all follow-up visits as told by your doctor. This is important. You may need follow-up tests. How is this prevented? To prevent another kidney stone: Drink enough fluid to keep your pee pale yellow. This is the best way to prevent kidney stones. Eat healthy foods. Avoid certain foods as told by your doctor. You may be told to eat less protein. Stay at a healthy weight. Where to find more information National Kidney Foundation (NKF): www.kidney.org [employer] (UCF): www.urologyhealth.org Contact a doctor if: You have pain that gets worse or does not get better with medicine. Get help right away if: You have a fever or chills. You get very bad pain. You get new pain in your belly (abdomen). You pass out (faint). You cannot pee. Summary Kidney stones are rock-like masses that form inside of the kidneys. Kidney stones can cause very bad pain and can block the flow of pee. The stones will often pass out of the body through peeing. Drink enough fluid to keep your pee pale yellow. This information is not intended to replace advice given to you by your health care provider. Make sure you discuss any questions you have with your health care provider. Document Revised: 03/16/2022 Document Reviewed: 03/16/2022 [employer] Patient Education 2022 [employer] Follow Up Care 01/27/2023 13:42:16 With:Ricky SAWYER, FLORIN Morales, URO Address: When: Unknown [facility] 06-19-2023 Hospital Discharge instructions Patient Education 01/11/2023 10:52:50 EU - Cystoscopy Discharge Instructions (CUSTOM) Cystoscopy Voiding after the procedure: there may be some pain, burning, urgency, frequency and blood tinged urine following the procedure. These symptoms usually resolve within 2-5 days. Drink the amount of fluid it takes to keep the urine pink to yellow or clear in color. Drinking enough water and fluids will help to ease any discomfort after your procedure. If you are having problems that seem out of the ordinary, please call. If unable to contact your physician and you feel it is an emergency, go to the nearest emergency room or call 911 Diet you may resume your normal diet. Activity you may resume your normal activities Call if you have a fever over 100 degrees. Follow Up Care 01/01/2023 15:12:02 With:Danette García Address: [address], [place] [address]- [phone] [facility] (1) [address] [place] [address] Jacob, [address] [address] [phone] Business (1) When: Unknown Comments:Office to schedule follow up in 2-[address] Urogram [facility]04-08-2023 NoteSperm Rapid ProgressiveApril 2022 8:30am71 %[facility] [id number] [address] [place], [place] 1096404-08-2023 NoteSperm Non-ProgressiveApril 2022 8:30am7 %[facility] [id number] [address] [place], [place] [address]96404-08-2023 NoteSperm Rapid ProgressiveApril 2022 8:30am71 %[facility] [id number] [address] [place], [place] [address]96404-08-2023 NoteSperm Non-ProgressiveApril 2022 8:30am7 %[facility] [id number] [address] [place], [place] [address]Evaluation + Plan note Future Appointments Appointment Date:02/01/2023 02:45:00 PM Scheduled Provider:Danette García MD Location:[facility] Appointment Type:URO [facility] Future Appointments Appointment Date:05/07/2023 08:15:00 AM Scheduled Provider:Danette García MD Location:[facility] Appointment Type:URO Office Visit Diagnostic Tests Pending * Calculi Analysis Urinary 03/26/23 [facility] Evaluation + Plan note Future Appointments Appointment Date:05/07/2023 08:15:00 AM Scheduled Provider:Danette García MD Location:[facility] Appointment Type:URO Office Visit [facility] Evaluation + Plan note Future Appointments Appointment Date:05/07/2023 08:15:00 AM Scheduled Provider:Danette García MD Location:[facility] Appointment Type:URO Office Visit Diagnostic Tests Pending * Calculi Analysis Urinary 04/19/23 [facility] Future Appointments Appointment Date:01/07/2024 08:00:00 AM Scheduled Provider:Danette García MD Location:[facility] Appointment Type:URO Office Visit [facility] evaluation noteNo assessment information available [facility] Work Phone: evaluation noteNo InformationNort [facility] Other Evaluation note* Diagnosis Encounter for investigation and testing for procreative management- [facility] Diagnosis Encounter for investigation and testing for procreative management [facility]* Diagnosis Onset Date Resolution Status Anxiety acute Spondylolisthesis acute [facility] Work Phone: evaluation note* Diagnosis Encounter for investigation and testing for procreative management [facility]* Diagnosis Procreative management- Primary Unspecified procreative management [facility]* Diagnosis Procreative management Unspecified procreative management [facility]* Diagnosis Procreative management- Primary Unspecified procreative management [facility]* Diagnosis Onset Date Resolution Status Anxiety acute Pneumonia acute [facility] Work Phone: Hisuuct general Narrative - Reported* Type Description Date Surgical History wisdom teeth 2017 [place] [facility] Other Hospital course Narrative No data available for this section [facility] No data available for this section [facility] Progress note No data available for this section [facility] for visit NarrativeANXIETY/REFERRAL FOR BACK INJURYDublin [facility] Other Summary Purpose Family History Relationship Condition Age at Onset Recorded Date/T jonas father Diabetes mellitus Unknown grandparent Unknown Hypertension Unknown Malignant neoplasm Unknown Malignant neoplasm of breast Unknown Advance Directives Advance Directive Response Recorded Date/ Time Advance Directives No January 21 4:25pm Chief Complaint and Reason for Visit Chief Complaint Fertility Seman Anal ysis Z31.41 Chief Complaint Fertility Seman Anal ysis Z31.41 kidney stones n13.2 n20.0 Chief Complaint kidney stones n13.2 n20.0 N20.0 N20.0 Chief Complaint n13.2 n20.0 N20.0 N20.0 M54.50 M43.10 recurring stones Chief Complaint Amb Documentation E21.3 Chief Complaint Amb Documentation E21.3 6 mo recheck anxiety Reason for Visit Anxiety Spondylolisthesis Chief Complaint Cough, Congestion, C hills, Bodyaches Reason for Visit Anxiety Pneumonia Chief Complaint Cough, Congestion, C hills, Bodyaches n20.0 z87.442 Reason for Visit Anxiety Pneumonia Additional Source Comments (unrecognized sect ion and content) No Status Records FoundNo Status Records FoundNo Status Records FoundNo Status Records FoundNo Status Records FoundNo Status Records Found INFORMATION SOURCE (unrecogn ized section and content) DATE CREATED AUTHOR 06/13/2020 [facility] DATE CREATED AUTHOR AUTHOR'S ORGANIZ ATION 11/06/2023 [facility] DATE CREATED AUTHOR AUTHOR'S ORGANIZ ATION 11/22/2023 [facility] DATE CREATED AUTHOR AUTHOR'S ORGANIZ ATION 03/04/2024 [facility] DATE CREATED AUTHOR AUTHOR'S ORGANIZ ATION 03/18/2024 [facility] DATE CREATED AUTHOR AUTHOR'S ORGANIZ ATION 03/29/2024 [place] Reason for Visit (unrecogniz ed section and content) Reason Comments Medication Refill Specialty Diagnoses / Procedures Referred By Meghann wilson Referred To Contact Laboratory Medicine / REPRODUCTIVE ENDOCRINOLOGY & FERTILITY Diagnoses Female fertility problem Semen analysis benefit check Procedures SPRM ISOL CPLX PREP INSEMINATION/DX SEMEN DARI TELEVISIT Pcp, No, DIRECTOR STRATEGIC ACCOUNT MANAGEMENT Whi Praneeth [facility] [address] [place] [address] Referral ID Status Reason Start Date Expiration Date V isits Requested Visits Authorized [id number] Closed Benefit Check 08/17/2023 07/25/2024 1 1 Specialty Diagnoses / Procedures Referred By Contac t Referred To Contact REPRODUCTIVE ENDOCRINOLOGY & FERTILITY Diagnoses Encounter for procreative management, unspecified Procedures SPRM ISOL CPLX PREP INSEMINATION/[place] [address] [place] [address] [facility] [address] [place] [address] Referral ID Status Reason Start Date Expiration Date Visits Requested Visits Authorized [id number] Authorized Benefit Check Patient Cleared - True Self-Pay required payment collected Do Not Bill Insurance - SP patient 09/13/2023 12/12/2023 3 3 Specialty Diagnoses / Procedures Referred By Contac t Referred To Contact REPRODUCTIVE ENDOCRINOLOGY & FERTILITY Diagnoses Encounter for procreative management, unspecified Procedures SPRM ISOL CPLX PREP INSEMINATION/DX SEMEN Everardo Griffin PA-C [address] [place] [address] [facility] [address] [place] [address] Referral ID Status Reason Start Date Expiration Date V isits Requested Visits Authorized [id number] Closed Financial Clearance Required - Self Pay Patient Cleared - True Self-Pay required payment collected Do Not Bill Insurance - SP patient 12/06/2023 03/05/2024 1 1 Specialty Diagnoses / Procedures Referred By Contact Referred To Contact REPRODUCTIVE ENDOCRINOLOGY & FERTILITY Diagnoses Procreative management Procedures SPRM ISOL CPLX PREP INSEMINATION/DX SEMEN DARI Piedad Gordillo DIRECTOR STRATEGIC ACCOUNT MANAGEMENT [facility] [address] [place] [address] Referral ID Status Reason Start Date Expiration Date V isits Requested Visits Authorized [id number] Closed Financial Clearance Required - Self Pay Patient Cleared - True Self-Pay required payment collected Do Not Bill Insurance - SP patient 01/06/2024 03/06/2024 1 1 Care Teams (unrecognized sec tion and content) Team Status: Active Member Role Status Dates Perez Brock DO Primary Care Provider Active Team Status: Inactive Member Role Status Dates Perez Brock DO Primary Care Provider Active S tart: March 01, 2024 End: March 01, 2024 Brittney Avilez APRN Attending Provider Active S tart: March 01, 2024 End: March 01, 2024 Team Status: Active Member Role Status Dates Perez Brock , DO Primary Care Provider Active S tart: September 22, 2023 Caryn Santos LPN Attending Provider Active St art: September 22, 2023 Team Status: Inactive Member Role Status Dates Perez Brock , DO Primary Care Provider Active S tart: November 13, 2023 End: November 13, 2023 Mauricio Gloria MD Attending Provider Act vane Start: November 13, 2023 End: November 13, 2023 Pressure Testing Technician Relationship Specialty Start Date End Date No, Physician [facility] PCP - General 12/09/15 Team Status: Inactive Member Role Status Dates Perez Brock DO Primary Care Provider Active Mikki Plummer , DO Attending Provider Active Team Status: Inactive Member Role Status Dates Perez Brock DO Primary Care Provider Active Danette García MD Attending Provider Active Team Status: Inactive Member Role Status Dates Perez Brock DO Primary Care Provider, Attending Pro vider Active Danette García MD Referring Provider Active Team Status: Inactive Member Role Status Dates Perez Brock DO Primary Care Provide r, Attending Provider Active Start: November 17, 2023 End: November 17, 2023 Team Status: Inactive Member Role Status Dates Perez Brock , DO Primary Care Provider Active S tart: March 01, 2024 End: March 01, 2024 Brittney COYLE APRN Attending Provider Active Start: March 01, 2024 End: March 01, 2024 Team Status: Active Member Role Status Lucia Brock DO Primary Care Provide r, Attending Provider Active Start: March 11, 2024 Team Status: Inactive Member Role Status Dates Perez Brock DO Primary Care Provider Active S tart: March 31, 2024 End: March 31, 2024 Danette García MD Attending Provider Active Start : March 31, 2024 End: March 31, 2024 Goals (unrecognized section and content) Goals may be documented in a n alternate section No data available for this sectionGoals may be documented in an alternate section No data available for this sectionGoals may be documented in an alternate section No data available for this sectionNo InformationNo InformationGoals may be documented in an alternate section No data available for this section No data available for this sectionNo Information No data available for this sectionGoals may be documented in an alternate sectionGoals may be documented in an alternate sectionGoals may be documented in an alternate sectionGoals may be documented in an alternate section Source Comments (unrecognize d section and content) In the event this informatio n is protected by the Federal Confidentiality of Alcohol and Drug Abuse Patient Records regulations: The Federal rules restrict any use of the information to criminally investigate or prosecute any alcohol or drug abuse patient.[facility] Hospital[facility] the event this information is protected by the Federal Confidentiality of Alcohol and Drug Abuse Patient Records regulations: The Federal rules restrict any use of the information to criminally investigate or prosecute any alcohol or drug abuse patient.[facility] HospitalIn the event this information is protected by the Federal Confidentiality of Alcohol and Drug Abuse Patient Records regulations: The Federal rules restrict any use of the information to criminally investigate or prosecute any alcohol or drug abuse patient.[facility] HospitalIn the event this information is protected by the Federal Confidentiality of Alcohol and Drug Abuse Patient Records regulations: The Federal rules restrict any use of the information to criminally investigate or prosecute any alcohol or drug abuse patient.[facility] HospitalIn the event this information is protected by the Federal Confidentiality of Alcohol and Drug Abuse Patient Records regulations: The Federal rules restrict any use of the information to criminally investigate or prosecute any alcohol or drug abuse patient.[facility] HospitalIn the event this information is protected by the Federal Confidentiality of Alcohol and Drug Abuse Patient Records regulations: The Federal rules restrict any use of the information to criminally investigate or prosecute any alcohol or drug abuse patient.[facility] HospitalIn the event this information is protected by the Federal Confidentiality of Alcohol and Drug Abuse Patient Records regulations: The Federal rules restrict any use of the information to criminally investigate or prosecute any alcohol or drug abuse patient.[facility] FOR RECORDS PERTAINING TO PATIENTS WHO ARE OR HAVE BEEN ENROLLED IN A CHEMICAL DEPENDENCY/SUBSTANCEABUSE PROGRAM, SOME INFORMATION MAY BE OMITTED. This clinical summary was aggregated from multiple sources. Caution should be exercised in using it in the provision of clinical care. This summary normalizes information from multiple sources, and as a consequence, information in this document may materially change the coding, format and clinical context of patient data. In addition, data may be omitted in some cases. CLINICAL DECISIONS SHOULD BE BASED ON THE PRIMARY CLINICAL RECORDS. [facility] [employer] [facility]. provides no warranty or guarantee of the accuracy or completeness of information in this document.
[2024-04-01 11:01] LABS: Alanine Aminotransferase 40 U/L (16-63); Albumin Globulin Ratio 1.4; Albumin Level 4.3 g/dL (3.4-5.0); Alkaline Phosphatase 67 U/L (46-116); Anion Gap 12.9; Aspartate Amino Transferase 18 U/L (15-37); BUN Creatinine Ratio 16.7; Bilirubin Total 1.7 mg/dL (0.2-1.0); Calcium 9.3 mg/dL (8.5-10.1); Carbon Dioxide 27.9 mmol/L (21.0-32.0); Chloride 102 mmol/L (98-107); Estimated GFR (African America >60 (>=60); Estimated GFR (Non-African Ame >60 (>=60); Globulin 3.1 g/dL; Glucose 96 mg/dL (74-106); Potassium 3.8 mmol/L (3.5-5.1); Sodium 139 mmol/L (136-145); Total Protein 7.4 g/dL (6.4-8.2)
[2024-04-03 13:07] LABS: PTH, Intact 54 pg/mL (15-65)
[2024-04-04 12:09] LABS: Calcium, Ionized, Serum 5.1 mg/dL (4.5-5.6)
== END 2024-04-01 09:45 | disposition home or self-care (01) ==
LOC: LAB 09:46
PROVIDERS: PCP Family Medicine
DX: E21.3 Hyperparathyroidism, unspecified (principal)
CPT/HCPCS: 36415; 80053; 82330; 83970

== ENCOUNTER 2024-04-20 15:56 | Outpatient (OUT) | payer BC, SELFPAY ==
--- NOTE | 2024-04-20 | CT_ITS ---
[address] [address] Patient Name: REX STANLEY MRN: [id number] date: 1995 Sex: M Assigned Patient Location: CT Current Patient Location: CT Accession/Order Number: [id number] Exam Date: 04/20/2024 16:04 Report Date: 04/20/2024 16:41 At the request of: KAM MCGRAW Procedure: CT abdomen pelvis wo con EXAM: CT scan of the abdomen and pelvis without contrast. Dose reduction technique used: Automated exposure control and/or adjustment of the mA and/or kV according to patient size and/or use of iterative reconstruction technique. 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 No focal obstructing lesion evident. Bilateral L5 spondylolysis with grade 1 anterolisthesis of L5 on S1. Right renal cyst. Tiny calcific densities along the margin of the right renal cyst. Nonobstructing right calyceal tip renal stone. No ureteral or bladder calculi. Normal appendix. No free fluid in the abdomen or pelvis. No free intraperitoneal air. No dilated or thickened loops of small bowel or colon. Liver, pancreas, spleen, bilateral kidneys, and bilateral adrenal glands are otherwise unremarkable within the limitations of noncontrast CT. No lymphadenopathy in the abdomen or pelvis. Remainder unremarkable. CT/CT abdomen pelvis wo con IMPRESSION: 1. 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 2. Right nephrolithiasis. Electronically authenticated by: CLAY SHAH Date: 04/20/2024 16:41
--- OUTSIDE RECORDS SUMMARY | 2024-04-20 16:06 | XMS_ITS | CCD ---
Author Organization [facility] Care Team Providers Care Elementary Secretary Name Role Phone IGNACIO CARRILLO Attending Unavailable PEREZ BROCK Primary Care Unavailable IGNACIO CARRILLO Admitting Unavailable GRETAGANIGNACIO Consulting Unavailable GRETAGAN, IGNACIO Admitting Unavailable GRETAGAN, IGNACIO Consulting Unavailable IGNACIO CARRILLO Attending Unavailable PEERZ BROCK Primary Care Unavailable IGNACIO CARRILLO Attending Unavailable IGNACIO CARRILLO Admitting Unavailable MISC, DOCTOR Primary Care Unavailable REENA GRACIA Consulting Unavailable REENA GRACIA Attending Unavailable REENA GRACIA Admitting Unavailable PEREZ JAMES V Consulting Unavailable JORJE PELLETIER Consulting Unavailable PEREZ BROCK Primary Care Unavailable SINTIA, IGNACIO Admitting Unavailable IGNACIO CARRILLO Attending Unavailable IGNACIO CARRILLO Consulting Unavailable PEREZ BROCK Primary Care Unavailable SINTIA, IGNACIO Attending Unavailable SINTIA, IGNACIO Admitting Unavailable SINTIA, IGNACIO Consulting Unavailable No, Physician Primary Care Provider UnavailDO Perez Kelsey Primary Care Provider DO Mikki Plummer Attending Provider [phone] Perez Brock Primary Care Physician MD Danette García Attending Provider DO Perez Brock Primary Care Provider [phone] Perez Brock Unavailable DO Perez Brock Primary Care Provider [phone] MD Danette García Attending Provider [phone] DO Perez Brock Attending Provider MD Danette García Referring Provider Unavailable Primary Care Provider UnavailDO Perez Kelsey Primary Care Provider MD Mauricio Franz Attending Provide r Unavailable Primary Care Provider Unavailabl e TRACEE, ANGEL Referring Unavailable SMOLEN, EVERARDO Referring Unavailable LANA NOLASCOE Referring Unavailable WILLIAM PLAZA Referring Unavailable DO Perez Brock Primary Care Provider [phone] MD Danette García Attending Provider MAURICIO FRANZ Attending Un available PEREZ BROCK Referring Unavailable PEREZ BROCK Primary Care Unavailable MAURICIO FRANZ Attending Un available PEREZ BROCK Referring Unavailable PEREZ BROCK Primary Care Unavailable Mariza, Perez Primary Care Unavailable Danette García Admitting Unavailable Danette García Attending Unavailable Danette García Referring Unavailable Mariza, Perez Admitting Unavailable Perez Brock Primary Care Unavailable Mariza, Perez Attending Unavailable Perez Brock Primary Care Unavailable Mauricio Franz Admitting Unav ailable Mauricio Franz Attending Unav ailable Danette García. Attending Unavailable Danette García. Attending Unavailable Danette García. Attending Unavailable Danette García. Admitting Unavailable Danette García. Attending Unavailable Allergies Allergy Classification Reported Allergen(s) Allergy Type Date of Onset Reaction(s) Facility (7 sources) Pollen; Translations: [Pollen] Allergy to substance Eruption of skin (disorder) [facility] (7 sources) Grass; Translations: [Grass] Allergy to substance Itching (finding) [facility] (3 sources) Escitalopram Drug Allergy sexual side effects, excessive sweating and mood swings [employer] Other (2 sources) Escitalopram; Translations: [ESCITALOPRAM] Drug Allergy 03-01-20 [facility] (1 source) No Known Medication Allergies; Translations: [No Known Medication Allergies] Propensity to adverse reactions (disorder) [facility] Repository NEGATED: Highlighted row has been ruled out! (1 source) Drug allergy [facility] NEGATED: Highlighted row has been ruled out! (1 source) Drug allergy [facility] NEGATED: Highlighted row has been ruled out! (1 source) Drug allergy [facility] NEGATED: Highlighted row has been ruled out! (1 source) Drug allergy [facility] NEGATED: Highlighted row has been ruled out! (1 source) Drug allergy [facility] NEGATED: Highlighted row has been ruled out! (1 source) Drug allergy [facility] Medications Current Medications Medication Drug Class(es) [...] investigation and testing] Onset: 08-27-2023 08-26-2023 Episodic Unclassified (1 source) Lumbar pain M54.50 Results Test Name Value Interpretation Reference Range Facility Rem[facility]erson 04-11-2024 Reminders Reminders From: Laila Haskins To: EU - Recalls Lue; Sent: 06/11/2023 10:09:30 EST Show up: 11/10/2023 11:09:00 EDT Subject: Imaging Due Date/Time: 01/10/2024 11:09:00 EDT Pt needs to get KUB and KELLI done prior to appt. appt with KML 01/07/24- patient wants imaging done at [facility] Pt appointment rescheduled for 04/21/24 verified KELLI order is at [facility], note from [facility] states that patient wants to be scheduled closer to his appointment time. [facility] is going to call patient, KELLI addressed in separate message. Normal [facility] US renal BIon 03-31-2024 US renal BI [facility] [place] [address] [place], [place] [id number] Ultrasound Report Signed Patient: Rex Marcelino MR#: [id number] 329 : 1995 Acct:[id number] Age/Sex: 28 / M ADM Date: 03/31/24 Loc: Room: Type: [facility] Attending Dr: Danette García MD Ordering Provider: Danette García MD Date of Service: 03/31/24 US/US renal BI: N20.0, Z87.442 Copies to: Danette García MD BILATERAL RENAL AND BLADDER ULTRASOUND CLINICAL HISTORY: Kidney stone follow-up COMPARISON: KUB 03/23/2023 CT urogram 01/20/2023 FINDINGS: Estimation of renal size is approximately 10.8 cm on the right and 12.3 cm on the left. A cyst with calcification versus a calyceal diverticulum is seen involving the superior pole of the right kidney measuring 2.8 x 2.7 x 1.9 cm. No right-sided hydronephrosis is seen. Left kidney demonstrates mild hydronephrosis without shadowing stone or mass. The urinary bladder is partially distended with a volume of 70 ml. No shadowing stone or focal lesion. US/US renal BI IMPRESSION: LEFT-SIDED HYDRONEPHROSIS. DISTAL OBSTRUCTION CANNOT BE EXCLUDED. FURTHER EVALUATION WITH CT IS SUGGESTED. A CYST WITH CALCIFICATION VERSUS CALYCEAL DIVERTICULUM IS SEEN INVOLVING THE SUPERIOR POLE OF THE RIGHT KIDNEY. A SIMPLE APPEARING CYST IS SEEN ON A PRIOR CT UROGRAM FROM 01/20/2023. THIS COULD ALSO BE FURTHER EVALUATED ON THE FOLLOW-UP CT. Impression dictated by: Daniel Pena Jr., D.OVirgilio03/31/2024 11:18 AM Dictation Location: [place] [address] Tech: Nehal Gay Transcribed By: PATRICIA 03/31/24 1118 Dictated By: Daniel Pena Jr, DO 03/31/24 1115 Signed By: 03/31/24 1118 Normal [facility] XR abdomen 1Von 03-31-2024 XR abdomen 1V [facility] [place] [address] [place] [address] XRay Report Signed Patient: Rex Marcelino MR#: [id number] 329 : 1995 Acct:[id number] Age/Sex: 28 / M ADM Date: 03/31/24 Loc: Room: Type: [facility] Attending Dr: Danette García MD Copies to: Danette García MD Ordering Provider: Danette García MD Date of Service: 03/31/24 XR/XR abdomen 1V: N20.0, Z87.442 XR abdomen 1V 03/31/2024 7:22 AM SIGNS AND SYMPTOMS: Follow-up right-sided kidney stones, history of lithotripsy PROTOCOL: Frontal radiographs of the abdomen and pelvis COMPARISON: 03/23/2023 FINDINGS: No evidence of radiodense renal, ureteral, or bladder stone. Vascular calcifications are redemonstrated in the pelvis. There is a nonobstructive bowel gas pattern. The bony structures are grossly intact. XR/XR abdomen 1V IMPRESSION: No evidence of radiodense renal, ureteral, or bladder stone. Impression dictated by: Reena Ibrahim M.D.03/31/2024 12:37 PM Dictation Location: [place] [address] Transcribed By: [facility] 03/31/24 1237 Dictated By: Reena Ibrahim II, MD 03/31/24 1236 Signed By: 03/31/24 1237 Normal [facility] HIV 1 and HIV-2 antibody ass ay with HIV-1 p24 antigen detectionon 03-11-2024 HIV 1+2 Ab+HIV1 p24 Ag IA Ql Non-Reactive Non Reactive [facility] Comment on above: HIV-1/HIV-2 antibodi es and HIV-1 p24 antigen were NOTdetected. There is no laboratory evidence of HIV infection.HIV NegativePerformed at: - [facility] [id number] Director: Sony Strauss PhD, Phone: [phone] Hepatitis B virus surface Ag [Presence] in Serum or Plasma by Immunoassayon 03-11-2024 HBV surface Ag IA Ql Negative Negative [facility] Hepatitis C virus IgG Ab [Pr esence] in Serum or Plasma by Immunoassayon 03-11-2024 HCV IgG IA Ql Non-Reactive Non Reactive [facility] Comment on above: HCV antibody alone d oes not differentiate betweenpreviously resolved infection and active infection.Equivocal and Reactive HCV antibody results should befollowed up with an HCV RNA test to support the diagnosisof active HCV infection. Laboratory - Microbiology an d Antimicrobial susceptibilityon 03-11-2024 N. gonorrhoeae DNA CITLALI+probe Ql (Unsp spec) Negative Negative [facility] No Panel Informationon 03-11 Hepatitis B Core Total Antibody Negative Negative [facility] Comment on above: Performed at: [facility] [address] [id number] Director: Sony Strauss PhD, Phone: [phone] RPR Quantitative Confirmation Non Reactive titer NonRea<1:1 [facility] Comment on above: Please Note: This te st does not meet current guidelines forscreening and diagnosis of syphilis. This test isintended for following treatment response in patients beingtreated for syphilis infection. To screen for syphilisinfection, a reflex cascade that includes both RPR and atreponema-specific assay should be utilized, such asTreponema pallidum (Syphilis) Screening [place] (509774) orRapid Plasma Reagin (RPR) Test With Reflex to QuantitativeRPR and Confirmatory Treponema pallidum Antibodies(664584).Performed at: [facility] [id number] Director: Sony Strauss PhD, Phone: [phone] Chlamydia trachomatis (CITLALI) (LAB) Negative Negative [facility] Comment on above: Performed at: =[facility] [address] StreetJuan clementtonKym [id number] Director: Alisa Soria MD, Phone: [phone] CARRIER SCREEN, [facility] 0 03-04-2024 CARRIER SCREEN RESULTS View results in Scanned Documents link when available. 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 #:[id number]: 1 Problem List As Of Date: 01/07/2024 (None) Encounter Status:Closed by ZEE DAMIAN on 01/07/24 [facility] SPERM WASH GRADIENTon 2023 Collection time (Malika) [Date/time] 1:08 [facility] Comment on above: Order Comment: Speci men Type: SEMINAL FLUID SPECIMENOrdering Facility: [facility] Address: [address] [place] [address] Result Comment: 1:15 Performed By: #### P ERCOL ####[facility]-ANDROLOGYCLIA [id number] [place] [address] PARTNER INFORMATION Jenn Marcelino [facility] Comment on above: Order Comment: Speci men Type: SEMINAL FLUID SPECIMENOrdering Facility: [facility] Address: [address] [place] [address] Performed By: #### P ERCOL ####[facility]ITALANDROLOGYCLIA [id number] [place] [id number] PERCENT MOTILITY POST 95 % Normal >=50 [facility] Comment on above: Order Comment: Speci men Type: SEMINAL FLUID SPECIMENOrdering Facility: [facility] Address: [facility] [place] [address] Performed By: #### P ERCOL ####[facility]ITALANDROLOGYCLIA [id number] [place] [id number] Sexual abstinence duration [Time] 1.0 Days Normal [facility] Comment on above: Order Comment: Speci men Type: SEMINAL FLUID SPECIMENOrdering Facility: [facility] Address: [address] [place] [address] Performed By: #### P ERCOL ####[facility]ITALANDROLOGYCLIA [id number] [place] [id number] Specimen volume (Malika) 0.4 mL Normal >=1.50 [facility] Comment on above: Order Comment: Speci men Type: SEMINAL FLUID SPECIMENOrdering Facility: [facility] Address: [address] [place] [address] Performed By: #### P ERCOL ####[facility]ITALANDROLOGYCLIA [id number] [place] [id number] SPERM CONCENTRATION POST 60.0 M/mL Normal [facility] Comment on above: Order Comment: Speci men Type: SEMINAL FLUID SPECIMENOrdering Facility: [facility] Address: [address] [place] [address] Performed By: #### P ERCOL ####[facility]ITALANDROLOGYCLIA [id number] [place] [id number] [place] (Malika) [#/Vol] 24.0 M Normal >=15.00 [facility] Comment on above: Order Comment: Speci men Type: SEMINAL FLUID SPECIMENOrdering Facility: [facility] Address: [address] [place] [address] Result Comment: 135. 70 Performed By: #### P ERCOL ####[facility]-ANDROLOGYCLIA [id number] [place] [id number] [place] Motile (Malika) [#/Vol] 22.8 M Normal [facility] Comment on above: Order Comment: Speci men Type: SEMINAL FLUID SPECIMENOrdering Facility: [facility] Address: [address] [place] [address] Performed By: #### P ERCOL ####[facility]-ANDROLOGYCLIA [id number] [place] [id number] [place] Motile/100 spermatozoa (Malika) 83 % Normal >=40 [facility] Comment on above: Order Comment: Speci men Type: SEMINAL FLUID SPECIMENOrdering Facility: [facility] Address: [address] [place] [address] Performed By: #### P ERCOL ####[facility]-ANDROLOGYCLIA [id number] [place] [id number] UNDIFF ROUND CELLS POST WASH 0.00 M/mL Normal <1.00 [facility] Comment on above: Order Comment: Speci men Type: SEMINAL FLUID SPECIMENOrdering Facility: [facility] Address: [address] [place] [address] Performed By: #### P ERCOL ####[facility]-ANDROLOGYCLIA [id number] [place] [id number] WASHING SOLUTION EnhanceW Normal [facility] Comment on above: Order Comment: Speci men Type: SEMINAL FLUID SPECIMENOrdering Facility: [facility] Address: [address] [place] [address] Performed By: #### P ERCOL ####[facility]-ANDROLOGYCLIA [id number] [place] [id number] CNOVon 12-15-2023 CNOV Office Visit (ANDRBE ) REX MARCELINO ([id number]) 1995 M Date Time Provider Department 12/15/23 1:30 PM 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 #:[id number]: 1 Problem List As Of Date: 12/15/2023 (None) Encounter Status:Closed by ZEE DAMIAN on 12/15/23 Normal [facility] SPERM WASH GRADIENTon 2023 Collection time (Malika) [Date/time] 2:08 [facility] Comment on above: Order Comment: Speci men Type: SEMINAL FLUID SPECIMENOrdering Facility: [facility] Address: [address] [place] [address] Result Comment: 2:15 Performed By: #### P ERCOL ####[facility]-ANDROLOGYCLIA [id number] [place] [id number] PARTNER INFORMATION Jenn Marcelino Normal [facility] Comment on above: Order Comment: Speci men Type: SEMINAL FLUID SPECIMENOrdering Facility: [facility] Address: [address] [place] [address] Performed By: #### P ERCOL ####[facility]-ANDROLOGYCLIA [id number] [place] [id number] PERCENT MOTILITY POST 97 % Normal >=50 [facility] Comment on above: Order Comment: Speci men Type: SEMINAL FLUID SPECIMENOrdering Facility: [facility] Address: [address] [place] [address] Performed By: #### P ERCOL ####[facility]-ANDROLOGYCLIA [id number] [place] [address] Sexual abstinence duration [Time] 1.0 Days Normal [facility] Comment on above: Order Comment: Speci men Type: SEMINAL FLUID SPECIMENOrdering Facility: [facility] Address: [address] [place] [address] Performed By: #### P ERCOL ####[facility]ITALANDROLOGYCLIA [id number] [place] [id number] Specimen volume (Malika) 0.4 mL Normal >=1.50 [facility] Comment on above: Order Comment: Speci men Type: SEMINAL FLUID SPECIMENOrdering Facility: [facility] Address: [address] [place] [address] Performed By: #### P ERCOL ####[facility]ITALANDROLOGYCLIA [id number] [place] [phone] SPERM CONCENTRATION POST 104.0 M/mL Normal [facility] Comment on above: Order Comment: Speci men Type: SEMINAL FLUID SPECIMENOrdering Facility: [facility] Address: [address] [place] [address] Performed By: #### P ERCOL ####[facility]ITALANDROLOGYCLIA [id number] [place] [id number] [place] (Malika) [#/Vol] 41.6 M Normal >=15.00 [facility] Comment on above: Order Comment: Speci men Type: SEMINAL FLUID SPECIMENOrdering Facility: [facility] Address: [address] [place] [address] Result Comment: 115. 20 Performed By: #### P ERCOL ####[facility]ITALANDROLOGYCLIA [id number] [place] [id number] [place] Motile (Malika) [#/Vol] 40.4 M Normal [facility] Comment on above: Order Comment: Speci men Type: SEMINAL FLUID SPECIMENOrdering Facility: [facility] Address: [address] [place] [address] Performed By: #### P ERCOL ####[facility]ITALANDROLOGYCLIA [id number] [place] [id number] [place] Motile/100 spermatozoa (Malika) 85 % Normal >=40 [facility] Comment on above: Order Comment: Speci men Type: SEMINAL FLUID SPECIMENOrdering Facility: [facility] Address: [address] [place] [address] Performed By: #### P ERCOL ####[facility]ANDROLOGYCLIA [id number] [place] [id number] UNDIFF ROUND CELLS POST WASH 0.00 M/mL Normal <1.00 [facility] Comment on above: Order Comment: Speci men Type: SEMINAL FLUID SPECIMENOrdering Facility: [facility] Address: [address] [place] [address] Performed By: #### P ERCOL ####[facility]ITALANDROLOGYCLIA [id number] [place] [id number] WASHING SOLUTION EnhanceW Normal [facility] Comment on above: Order Comment: Speci men Type: SEMINAL FLUID SPECIMENOrdering Facility: [facility] Address: [address] [place] [address] Performed By: #### P ERCOL ####[facility]ANDROLOGYCLIA [id number] [place] [id number] Lab Reportson 11-16-2023 Lab Reports [id number] Normal [facility] Alanine aminotransferase [En zymatic activity/volume] in Serum or PlasmaOrdered By: Mauricio Gloria on 11-13-2023 ALT [Catalytic activity/Vol] 22 U/L Normal 7-52 [facility] Comment on above: Order Comment: FASTI NG Performed By: #### M G, [id number], CMP, PTH #### [facility] [address] [place] [address] [place] #### CAION #### [facility] , Albumin [Mass/volume] in Ser um or Plasma by Bromocresol green (BCG) dye binding methoOrdered By: Mauricio Gloria on 11-13-2023 Albumin BCG dye [Mass/Vol] 4.8 g/dL 3.5-5.7 [facility] Alkaline phosphatase [Enzyma tic activity/volume] in Serum or PlasmaOrdered By: Mauricio Gloria on 11-13-2023 ALP [Catalytic activity/Vol] 63 U/L Normal 34-104 [facility] Comment on above: Order Comment: FASTI NG Performed By: #### M G, [id number], CMP, PTH #### [facility] [address] #### CAION #### [facility] , Aspartate aminotransferase [ Enzymatic activity/volume] in Serum or PlasmaOrdered By: Mauricio Gloria on 11-13-2023 AST [Catalytic activity/Vol] 16 U/L Normal 13-39 [facility] Comment on above: Order Comment: FASTI NG Performed By: #### M G, [id number], CMP, PTH #### [facility] [address] [place] [address] [place] #### CAION #### [facility] , Bilirubin.total [Mass/volume ] in Serum or PlasmaOrdered By: Mauricio Gloria on 11-13-2023 Bilirubin [Mass/Vol] 1.3 mg/dL High 0.3-1.0 [facility] Comment on above: Samples from patient s who have taken Naproxen have shown spurious elevation in Total Bilirubin levels. A metabolite of Naproxen, O-desmethylnaproxen, has been shown to interfere with the Jendrassik-Grof method for measuring Total Bilirubin. Order Comment: FASTI NG Result Comment: Samp les from patients who have taken Naproxen have shown spurious elevation in Total Bilirubin levels. A metabolite of Naproxen, O-desmethylnaproxen, has been shown to interfere with the Jendrassik-Grof method for measuring Total Bilirubin. Performed By: #### M G, [id number], CMP, PTH #### [facility] [address] [place] [address] [place] #### CAION #### [facility] , Calcium [Mass/volume] in Ser um or PlasmaOrdered By: Mauricio Gloria on 11-13-2023 Calcium [Mass/Vol] 10.0 mg/dL Normal 8.6-10.3 [facility] Comment on above: Order Comment: FASTI NG Performed By: #### M G, [id number], CMP, PTH #### [facility] [address] [place] [address] [place] #### CAION #### [facility] , Carbon dioxide, total [Moles /volume] in Serum or PlasmaOrdered By: Mauricio Gloria on 11-13-2023 CO2 [Moles/Vol] 28.9 mmol/L Normal 21.0-31.0 [facility] Comment on above: Order Comment: FASTI NG Performed By: #### M G, [id number], CMP, PTH #### [place] [address] [place] #### CAION #### [facility] , Chloride [Moles/volume] in S adis or PlasmaOrdered By: Mauricio Gloria on 11-13-2023 Chloride [Moles/Vol] 105 mmol/L Normal 98-107 [facility] Comment on above: Order Comment: FASTI NG Performed By: #### M G, [id number], CMP, PTH #### [facility] [address] [place] [address] [place] #### CAION #### [facility] , Comprehensive Metabolic Pane ramirez 11-13-2023 Albumin [Mass/Vol] 4.8 g/dL Normal 3.5-5.7 [facility] Comment on above: Order Comment: FASTI NG Performed By: #### M G, [id number], CMP, PTH #### [facility] [address] [place] [address] [place] #### CAION #### [facility] , GFR/1.73 sq M.predicted MDRD (S/P/Bld) [Vol rate/Area] mL/min/{1.73_m2} Normal [facility] Comment on above: Order Comment: FASTI NG Performed By: #### M G, [id number], CMP, PTH #### [facility] [address] [place] [address] [place] #### CAION #### [facility] , Creatinine [Mass/volume] in Serum or PlasmaOrdered By: Mauricio Gloria on 11-13-2023 Creatinine [Mass/Vol] 1.03 mg/dL Normal 0.70-1.[address] [facility] Comment on above: Order Comment: FASTI NG Performed By: #### M G, [id number], CMP, PTH #### [facility] [address] [place] [address] [place] #### CAION #### [facility] , Glucose [Mass/volume] in Ser um or PlasmaOrdered By: Mauricio Gloria on 11-13-2023 Glucose [Mass/Vol] 91 mg/dL Normal 70-100 [facility] Comment on above: ADA recommended refe rence rangeRandom Glucose Reference Range is dependent on time and content of last meal. Glucose of more than 200 mg/dL in a nonstressed, ambulatory subject supports the diagnosis of Diabetes Mellitus. Order Comment: FASTI NG Result Comment: [place] om Glucose Reference Range is dependent on time and content of last meal. Glucose of more than 200 mg/dL in a nonstressed, ambulatory subject supports the diagnosis of Diabetes Mellitus. ADA recommended reference range Performed By: #### M G, [id number], CMP, PTH #### [facility] [address] [place] [address] [place] #### CAION #### [facility] , Ionized Calciumon 11-13-2023 Ionized Calcium 5.0 mg/dL Normal 4.5-5.6 [facility] Comment on above: Order Comment: FASTI NG Result Comment: Perf ormed at: [facility] [address], [place] [id number] Graduate Student Instructor: Sony Strauss PhD, Phone: [phone] PERFORMED BY: [place] [address] PATHOLOGIST TABLE WORKER GIBSON DOSS M.D. Performed By: #### M G, [id number], CMP, PTH #### [facility] [address] [place] [address] [place] #### CAION #### [facility] , Magnesium [Mass/volume] in S adis or PlasmaOrdered By: Mauricio Gloria on 11-13-2023 Magnesium [Mass/Vol] 2.0 mg/dL Normal 1.9-2.7 [facility] Comment on above: Order Comment: FASTI NG Performed By: #### M G, [id number], CMP, PTH #### [place] [address] [place] #### CAION #### [facility] , No Panel InformationOrdered By: Mauricio Gloria on 11-13-2023 Estimated GFR (CKD-EPI) > 60.0 mL/Min [facility] Creatinine Clearance (Chem N/A [facility] Parathyrin.intact [Mass/volu me] in Serum or PlasmaOrdered By: Mauricio Gloria on 11-13-2023 Parathyrin.intact [Mass/Vol] 54.5 pg/mL [facility] Parathyroid Hormone Intacton 11-13-2023 Parathyroid Hormone Intact 54.5 pg/mL Normal [facility] Comment on above: Order Comment: FASTI NG Result Comment: PERF ORMED BY: [place] [address] PATHOLOGIST TABLE WORKER GIBSON DOSS M.D. Performed By: #### M G, [id number], CMP, PTH #### [place] [address] [place] #### CAION #### [facility] , Potassium [Moles/volume] in Serum or PlasmaOrdered By: Mauricio Gloria on 11-13-2023 Potassium [Moles/Vol] 4.4 mmol/L Normal 3.5-5.[address] [facility] Comment on above: Order Comment: FASTI NG Performed By: #### M G, [id number], CMP, PTH #### [facility] [address] [place] [address] [place] #### CAION #### [facility] , Protein [Mass/volume] in Ser um or PlasmaOrdered By: Mauricio Gloria on 11-13-2023 Protein [Mass/Vol] 7.2 g/dL Normal 6.4-8.9 [facility] Comment on above: Order Comment: FASTI NG Performed By: #### M G, [id number], CMP, PTH #### [place] [address] [place] #### CAION #### [facility] , Serum globulin measurement b y calculation (mass/volume)Ordered By: Mauricio Gloria on 11-13-2023 Globulin (S) [Mass/Vol] 2.4 g/dL Normal [facility] Comment on above: Order Comment: FASTI NG Performed By: #### M G, [id number], CMP, PTH #### [place] [address] [place] #### CAION #### [facility] , Serum ionized calcium measur ement using ion specific electrode (mass/volume)Ordered By: Mauricio Gloria on 11-13-2023 Calcium.ionized ISE [Mass/Vol] 5.0 mg/dL 4.5-5.6 [facility] Comment on above: Performed at: [facility] [address] [id number] Director: Sony Strauss PhD, Phone: [phone] Serum or plasma albumin/glob ulin mass ratioOrdered By: Mauricio Gloria on 11-13-2023 Albumin/Globulin [Mass ratio] 2.0 {ratio} Normal [facility] Comment on above: Order Comment: FASTI NG Performed By: #### M G, [id number], CMP, PTH #### [facility] [address] [place] [address] [place] #### CAION #### [facility] , Serum or plasma anion gap de terminationOrdered By: Mauricio Gloria on 11-13-2023 Anion gap [Moles/Vol] 10.5 mmol/L Normal 6.0-15.0 [facility] Comment on above: Order Comment: FASTI NG Performed By: #### M G, [id number], CMP, PTH #### [facility] [address] [place] [address] [place] #### CAION #### [facility] , Sodium [Moles/volume] in Ser um or PlasmaOrdered By: Mauricio Gloria on 11-13-2023 Sodium [Moles/Vol] 140 mmol/L Normal 136-145 [facility] Comment on above: Order Comment: FASTI NG Performed By: #### M G, [id number], CMP, PTH #### [facility] [address] [place] [address] [place] #### CAION #### [facility] , Urea nitrogen [Mass/volume] in Serum or PlasmaOrdered By: Mauricio Gloria on 11-13-2023 Urea nitrogen [Mass/Vol] 17 mg/dL Normal 7-25 [facility] Comment on above: Order Comment: FASTI NG Performed By: #### M G, [id number], CMP, PTH #### [facility] [address] [place] [address] [place] #### CAION #### [facility] , Vitamin D 25 Hydroxy Totalon 11-13-2023 Vitamin D 25 Hydroxy Total 20.4 ng/mL Low 30-100 [facility] Comment on above: Order Comment: FASTI NG Result Comment: KAYLIE MIN D STATUS 25([place])VITAMIN D RANGE (ng/mL) Deficient <20 Insufficient 20 to <30 Sufficient 30 to 100 Reference: Lucero Mason, Juan Manuel BANUELOS, et al. Evaluation,treatment, and prevention of vitamin D deficiency; an Endocrine Society clinical practice guideline. JCEM. 2010; 96(7):1911-30. PERFORMED BY: [facility] [address] [place] [address] PATHOLOGIST TABLE WORKER GIBSON DOSS M.D. Performed By: #### M G, [id number], CMP, PTH #### [facility] [address] [place] [address] [place] #### CAION #### [facility] , Vitamin D+Metabolites [Mass/ volume] in Serum or PlasmaOrdered By: Mauricio Gloria on 11-13-2023 Vitamin D+Metabolites [Mass/Vol] 20.4 ng/mL 30-100 [facility] Comment on above: VITAMIN D STATUS 25( [place])VITAMIN D RANGE (ng/mL) Deficient <20 Insufficient 20 to <30Sufficient 30 to 100Reference: Lucero Mason, Juan Manuel BANUELOS, et al. Evaluation,treatment, and prevention of vitamin D deficiency; an Endocrine Society clinical practice guideline. JCEM. 2010; 96(7):1911-30. CNOVon 10-21-2023 CNOV Office Visit (ANDRBE ) REX MARCELINO ([id number]) 1995 M Date Time Provider Department 10/21/23 2:00 PM ANDROLOGY FERRYBOAT OPERATOR HELPER ANDRBE During your visit today, we recorded the following information about you: Zee Damian 10/21/2023 3:17 PM Signed Semen Wash for IUI Zee Damian Referring Provider: JESSE NOLASCO [[id number]] Allergies As of Date: 10/21/2023 (Not on File) Date Reviewed: Never Reviewed Visit Diagnosis:Encounter for investigation and testing for procreative management [Z31.49] Order(s):SPERM WASH GRADIENT [SQPERCOL] Order #: [id number]. #:[id number]: 1 Problem List As Of Date: 10/21/2023 (None) Encounter Status:Closed by ZEE DAMIAN on 10/21/23 [facility] SPERM WASH GRADIENTon 2023 Collection time (Malika) [Date/time] 2:03 [facility] Comment on above: Order Comment: Speci men Type: SEMINAL FLUID SPECIMENOrdering Facility: [facility] Address: [address] [place] [address] Result Comment: 3:10 Performed By: #### P ERCOL ####[facility]ITALANDROLOGYCLIA [id number] [place] [address] PARTNER INFORMATION Jenn Marcelino [facility] Comment on above: Order Comment: Speci men Type: SEMINAL FLUID SPECIMENOrdering Facility: [facility] Address: [address] [place] [address] Performed By: #### P ERCOL ####[facility]ITALANDROLOGYCLIA [id number] [place] [id number] PERCENT MOTILITY POST 95 % Normal >=50 [facility] Comment on above: Order Comment: Speci men Type: SEMINAL FLUID SPECIMENOrdering Facility: [facility] Address: [address] [place] [address] Performed By: #### P ERCOL ####[facility]-ANDROLOGYCLIA [id number] [place] [id number] Sexual abstinence duration [Time] 2.0 Days [facility] Comment on above: Order Comment: Speci men Type: SEMINAL FLUID SPECIMENOrdering Facility: [facility] Address: [address] [place] [address] Performed By: #### P ERCOL ####[facility]ANDROLOGYCLIA [id number] [place] [address] Specimen volume (Malika) 0.4 mL Normal >=1.50 [facility] Comment on above: Order Comment: Speci men Type: SEMINAL FLUID SPECIMENOrdering Facility: [facility] Address: [address] [place] [address] Performed By: #### P ERCOL ####[facility]ANDROLOGYIA [id number] [place] [id number] SPERM CONCENTRATION POST 76.0 M/mL Normal [facility] Comment on above: Order Comment: Speci men Type: SEMINAL FLUID SPECIMENOrdering Facility: [facility] Address: [address] [place] [address] Performed By: #### P ERCOL ####[facility]DR[facility] [id number] [place] [id number] [place] (Malika) [#/Vol] 30.4 M Normal >=15.00 [facility] Comment on above: Order Comment: Speci men Type: SEMINAL FLUID SPECIMENOrdering Facility: [facility] Address: [address] [place] [address] Result Comment: 109. 20 Performed By: #### P ERCOL ####[facility]ITALANDROLOGYIA [id number] [place] [address] [place] Motile (Malika) [#/Vol] 28.8 M Normal [facility] Comment on above: Order Comment: Speci men Type: SEMINAL FLUID SPECIMENOrdering Facility: [facility] Address: [address] [place] [address] Performed By: #### P ERCOL ####[facility]ITALANDROLOGYIA [id number] [place] [address] [place] Motile/100 spermatozoa (Malika) 85 % Normal >=40 [facility] Comment on above: Order Comment: Speci men Type: SEMINAL FLUID SPECIMENOrdering Facility: [facility] Address: [address] [place] [address] Performed By: #### P ERCOL ####[facility]ITALANDROLOGYCLIA [id number] [place] [address] UNDIFF ROUND CELLS POST WASH 0.00 M/mL Normal <1.00 [facility] Comment on above: Order Comment: Speci men Type: SEMINAL FLUID SPECIMENOrdering Facility: [facility] Address: [address] [place] [address] Performed By: #### P ERCOL ####[facility]-ANDROLOGYCLIA [id number] [place] [id number] WASHING SOLUTION Enhance W Normal [facility] Comment on above: Order Comment: Speci men Type: SEMINAL FLUID SPECIMENOrdering Facility: [facility] Address: [address] [place] [address] Performed By: #### P ERCOL ####[facility]-ANDROLOGYCLIA [id number] [place] [id number] CNOVon 09-22-2023 CNOV Office Visit (ANDRBE ) REX MARCELINO ([id number]) 1995 M Date Time Provider Department 09/22/23 1:30 PM ANDROLOGY FERRYBOAT OPERATOR [facility]DR[facility] During your visit today, we recorded the following information about you: Zee Damian 09/22/2023 3:49 PM Signed Semen Wash for IUI Zee Damian Referring Provider: ANGEL EASLEY [[id number]] Allergies As of Date: 09/22/2023 (Not on File) Date Reviewed: Never Reviewed Visit Diagnosis:Encounter for investigation and testing for procreative management [Z31.49] Order(s):SPERM WASH GRADIENT [SQPERCOL] Order #: [id number]. #:[id number]: 1 Problem List As Of Date: 09/22/2023 (None) Encounter Status:Closed by ZEE DAMIAN on 09/22/23 Normal [facility] SPERM WASH GRADIENTon 2023 Collection time (Malika) [Date/time] 1:50 Normal [facility] Comment on above: Order Comment: Speci men Type: SEMINAL FLUID SPECIMENOrdering Facility: [facility] Address: [address] [place] [address] Result Comment: 1:50 Performed By: #### P ERCOL ####[facility]-ANDROLOGYCLIA [id number] [place] [id number] PARTNER INFORMATION Jenn Marcelino Normal [facility] Comment on above: Order Comment: Speci men Type: SEMINAL FLUID SPECIMENOrdering Facility: [facility] Address: [address] [place] [address] Performed By: #### P ERCOL ####[facility]ITALANDROLOGYIA [id number] [place] [id number] PERCENT MOTILITY POST 94 % Normal >=50 [facility] Comment on above: Order Comment: Speci men Type: SEMINAL FLUID SPECIMENOrdering Facility: [facility] Address: [address] [place] [address] Performed By: #### P ERCOL ####[facility]ITALANDROLOGYCLIA [id number] [place] [id number] Sexual abstinence duration [Time] 2.0 Days Normal [facility] Comment on above: Order Comment: Speci men Type: SEMINAL FLUID SPECIMENOrdering Facility: [facility] Address: [address] [place] [address] Performed By: #### P ERCOL ####[facility]ITALANDROLOGYCLIA [id number] [place] [id number] Specimen volume (Malika) 0.4 mL Normal >=1.50 [facility] Comment on above: Order Comment: Speci men Type: SEMINAL FLUID SPECIMENOrdering Facility: [facility] Address: [address] [place] [address] Performed By: #### P ERCOL ####[facility]-ANDROLOGYCLIA [id number] [place] [address] SPERM CONCENTRATION POST 107.0 M/mL Normal [facility] Comment on above: Order Comment: Speci men Type: SEMINAL FLUID SPECIMENOrdering Facility: [facility] Address: [address] [place] [address] Performed By: #### P ERCOL ####[facility]ITALANDROLOGYCLIA [id number] [place] [address] [place] (Malika) [#/Vol] 42.8 M Normal >=15.00 [facility] Comment on above: Order Comment: Speci men Type: SEMINAL FLUID SPECIMENOrdering Facility: [facility] Address: [address] [place] [address] Result Comment: 198. 80 Performed By: #### P ERCOL ####[facility]ITALANDROLOGYCLIA [id number] [place] [address] [place] Motile (Malika) [#/Vol] 40.4 M Normal [facility] Comment on above: Order Comment: Speci men Type: SEMINAL FLUID SPECIMENOrdering Facility: [facility] Address: [address] [place] [address] Performed By: #### P ERCOL ####[facility]ITALANDROLOGYCLIA [id number] [place] [address] [place] Motile/100 spermatozoa (Malika) 83 % Normal >=40 [facility] Comment on above: Order Comment: Speci men Type: SEMINAL FLUID SPECIMENOrdering Facility: [facility] Address: [address] [place] [address] Performed By: #### P ERCOL ####[facility]ITALANDROLOGYCLIA [id number] [place] [address] UNDIFF ROUND CELLS POST WASH 0.00 M/mL Normal <1.00 [facility] Comment on above: Order Comment: Speci men Type: SEMINAL FLUID SPECIMENOrdering Facility: [facility] Address: [address] [place] [address] Performed By: #### P ERCOL ####[facility]-ANDROLOGYCLIA [id number] [place] [id number] WASHING SOLUTION EnhanceW Normal [facility] Comment on above: Order Comment: Speci men Type: SEMINAL FLUID SPECIMENOrdering Facility: [facility] Address: [address] [place] [id number] Performed By: #### P ERCOL ####[facility]-ANDROLOGYCLIA [id number] [place] [id number] CNOVon 08-27-2023 CNOV Office Visit (ANDRBE ) REX MARCELINO ([id number]) 1995 M Date Time Provider Department 08/27/23 1:30 PM ANDROLOGY FERRYBOAT OPERATOR [facility] During your visit today, we recorded the following information about you: Zee Damian 08/27/2023 3:42 PM Signed Semen Wash for IUI Zee Damian Referring Provider: NO PCP [[id number]] Allergies As of Date: 08/27/2023 (Not on File) Date Reviewed: Never Reviewed Primary Visit Diagnosis:Encounter for investigation and testing for procreative management [Z31.49] Order(s):SPERM WASH GRADIENT [SQPERCOL] Order #: [id number]: 1 STANDING SPERM WASH GRADIENT [SQPERCOL] Order #: [id number]. #:[id number]: 1 Problem List As Of Date: 08/27/2023 (None) Encounter Status:Closed by ZEE DAMIAN on 08/27/23 [facility] SPERM WASH GRADIENTon 2023 Collection time (Malika) [Date/time] 1:48 [facility] Comment on above: Order Comment: Speci men Type: SEMINAL FLUID SPECIMENOrdering Facility: [facility] Address: [address] [place] [address] Result Comment: 1:55 Performed By: #### P ERCOL ####[facility]-ANDROLOGYCLIA [id number] [place] [id number] COMMENT, PRE WASH 45% isolate used Normal [facility] Comment on above: Order Comment: Speci men Type: SEMINAL FLUID SPECIMENOrdering Facility: [facility] Address: [address] [place] [address] Performed By: #### P ERCOL ####[facility]-ANDROLOGYCLIA [id number] [place] [id number] PARTNER INFORMATION Jenn Marcelino Normal [facility] Comment on above: Order Comment: Speci men Type: SEMINAL FLUID SPECIMENOrdering Facility: [facility] Address: [address] [place] [address] Performed By: #### P ERCOL ####[facility]-ANDROLOGYCLIA [id number] [place] [id number] PERCENT MOTILITY POST 72 % Normal >=50 [facility] Comment on above: Order Comment: Speci men Type: SEMINAL FLUID SPECIMENOrdering Facility: [facility] Address: [address] [place] [address] Performed By: #### P ERCOL ####[facility]-ANDROLOGYCLIA [id number] [place] [id number] Sexual abstinence duration [Time] 2.0 Days Normal [facility] Comment on above: Order Comment: Speci men Type: SEMINAL FLUID SPECIMENOrdering Facility: [facility] Address: [address] [place] [address] Performed By: #### P ERCOL ####[facility]ANDROLOGYCLIA [id number] [place] [id number] Specimen volume (Malika) 0.4 mL Normal >=1.50 [facility] Comment on above: Order Comment: Speci men Type: SEMINAL FLUID SPECIMENOrdering Facility: [facility] Address: [address] [place], [place] [address] Performed By: #### P ERCOL ####[facility]-ANDROLOGYCLIA [id number] [place] [address] SPERM CONCENTRATION POST 114.0 M/mL Normal [facility] Comment on above: Order Comment: Speci men Type: SEMINAL FLUID SPECIMENOrdering Facility: [facility] Address: [address] [place] [address] Performed By: #### P ERCOL ####[facility]-ANDROLOGYCLIA [id number] [place] [address] [place] (Malika) [#/Vol] 45.6 M Normal >=15.00 [facility] Comment on above: Order Comment: Speci men Type: SEMINAL FLUID SPECIMENOrdering Facility: [facility] Address: [address] [place] [address] Result Comment: 128. 70 Performed By: #### P ERCOL ####[facility]ITALANDROLOGYCLIA [id number] [place] [address] [place] Motile (Malika) [#/Vol] 32.8 M Normal [facility] Comment on above: Order Comment: Speci men Type: SEMINAL FLUID SPECIMENOrdering Facility: [facility] Address: [address] [place] [address] Performed By: #### P ERCOL ####[facility]ANDROLOGYCLIA [id number] [place] [address] [place] Motile/100 spermatozoa (Malika) 67 % Normal >=40 [facility] Comment on above: Order Comment: Speci men Type: SEMINAL FLUID SPECIMENOrdering Facility: [facility] Address: [address] [place] [address] Performed By: #### P ERCOL ####[facility]ITALANDROLOGYCLIA [id number] [place] [address] UNDIFF ROUND CELLS POST WASH 0.00 M/mL Normal <1.00 [facility] Comment on above: Order Comment: Speci men Type: SEMINAL FLUID SPECIMENOrdering Facility: [facility] Address: [address] [place], [place] [address] [id number] Performed By: #### P ERCOL ####[facility]-ANDROLOGYCLIA [id number] [facility] .[place] [id number] WASHING SOLUTION EnhanceW Normal [facility] Comment on above: Order Comment: Speci men Type: SEMINAL FLUID SPECIMENOrdering Facility: [facility] Address: [address] [place] [id number] Performed By: #### P ERCOL ####[facility]-ANDROLOGYCLIA [id number] [facility] [address] [id number] [place] 06-14-2023 Screens [id number]#1. 00TIFF Normal [facility] Screens [id number]#1. 00TIFF Normal [facility] Ambulatory Visit Summaryon 1 08-11-2022 Ambulatory Visit Summary REX MARCELINO Alexandre :1995 Visit Date:06/11/2023 Ambulatory Visit Instructions Your Diagnosis Kidney stone Duplicated collecting system History of kidney stones Tests Performed Urnls Dip Stick Auto w/o Microscopy POC 12455 Your Care Team Attending Physician - Danette [...] Urnls Dip Stick Auto w/o Microscopy POC 04086 (06/11/2023) Bilirubin Urine Dipstick - Negative Blood Urine Dipstick - Negative Glucose Urine Dipstick - Negative Ketones Urine Dipstick - Negative Leukocytes Urine Dipstick - Negative Nitrite Urine Dipstick - Negative Protein Urine Dipstick - Negative Specific [place] Urine Dipstick - 1.010 Urine Appearance Urine [...] you for choosing us for your care. [facility] Patient Educationon 06-11-20 Patient Education Nephrology Dietary Guidelines to Help [...] ? 8 oz (237 mL) of milk, vdchdso-olwckmoaabny-u airy milk, and calcium-fortifiedfruit juice. Calcium-fortified means [...] Spinach (cooked), rhubarb, beets, sweet potatoes, and Wallisian chard. ? Peanuts. ? Potato chips, albanian fries, and baked potatoes with skin on. ? Nuts and nut products. ? Chocolate. ? If you regularly take a diuretic medicine, make sure to eat at least 1 or 2 servings of fruits or vegetables that are high in potassium each day. These include: ? Avocado. ? Banana. ? [place], prune, carrot, or tomato juice. ? Baked [...] fish oil, or vitamin B6. ? Take jiwz-nmc-nldndbx and prescription medicines only as told by your health care provider. These include supplements. What foods should I limit? Limit your in (more content not included)... Normal [facility] Urology Office/Clinic Noteon 06-11-2023 Urology [...] Analysis 04/19/23 - CaOx Dihy 90%, CaOx Crockett 5%, and Hydroxyapatite 5% Labs 04/14/23 - PTH 93.2 (high), Ca 10.1, Uric acid 6.1 [facility] 04/2023 - Urine CA 622, Volume 2.3 liters, citrate 588, sodium high 232 Discussed metabolic workup results with pt, PTH was elevated, could be the cause of his stones, calcium is borderline elevated, discussed referral to an lumber tying machine operator for further evaluation. Volume is good, citrate [...] be done prior to follow-up -Refer to Arch Cushion Skiving Machine Operator for hyperparathyroid work-up -Continue dietary modifications: Decrease sodium, monitor calcium intake Ordered: Body Mass Index (BMI) documented 3008F Current tobacco non-user 1036F Most recent diastolic blood pressure >=90 mm Hg 3080F Most recent systolic blood pressure >= 140 mm Hg 3077F Urnls Dip Stick Auto w/o Microscopy POC 86976 US Renal XR Abdomen 1 View 2. [...] Urnls Dip Stick Auto w/o Microscopy POC 80162 3. History of kidney stones (Z87.442: Personal history of urinary calculi) Patient has passed stones from the left on his own in the p (more content not included)... Normal [facility] Comment on above: Result Comment: Elec tronically Signed By: Danette García MD\.br\Date and Time Signed: 06/11/23 10:27 EST\.br\Electronically Co-Signed By: Laila Haskins\.br\Date and Time Co-Signed: 06/11/23 10:08 EST Lab Reportson 05-20-2023 Lab Reports [id number] TIFF Normal [facility] Calculus Analysison 04-27-20 Calcium oxalate dihydrate Infrared spectroscopy (Stone) [Mass fraction] 90 % Invalid Interpretation Code [facility] Comment on above: Performed By: #### 1 [id number] #### [facility] [address] [place] [address] Calcium oxalate monohydrate (Stone) [Mass fraction] 5 % Invalid Interpretation Code [facility] Comment on above: Performed By: #### 1 [id number] #### [facility] [address] [place] [address] Calculus analysis [Interp] Comment Invalid Interpretation Code [facility] Comment on above: Result Comment: Calc ium phosphate (hydroxyl form) includes hydroxyapatite, amorphous calcium phosphate, and whitlockite. Hydroxyapatite is the most common of the calcium phosphate salts found in human kidney stones. Performed By: #### 1 [id number] #### [facility] [address] [place] [address] Color (Stone) Brown Invalid Interpretation Code [facility] Comment on above: Performed By: #### 1 [id number] #### [facility] [address] [place] [address] Composition Comment Invalid Interpretation Code [facility] Comment on above: Result Comment: Perc entage (Represents the % composition) Performed By: #### 1 [id number] #### [facility] [address] [place] [address] Disclaimer: Comment Invalid Interpretation Code [facility] Comment on above: Result Comment: This test was developed and its performance characteristics determined by [facility]. It has not been cleared or approved by the Food and Drug Administration. Performed at: [facility] [address] [id number] PhD Azam Botello Performed By: #### 1 [id number] #### [facility] [address] [place] [address] Hydroxyapatite: 5 % Invalid Interpretation Code [facility] Comment on above: Performed By: #### 1 [id number] #### [facility] [address] [place] [address] Laboratory comment Ruddy (Report) Comment Invalid Interpretation Code [facility] Comment on above: Result Comment: Sugar hauser questions regarding Calculi Analysis contact [facility] at: [phone]. Performed By: #### 1 [id number] #### [facility] [address] [place] [address] Please Note: Comment Invalid Interpretation Code [facility] Comment on above: Result Comment: Calc xuan report will follow via computer, mail or reliability specialist delivery. Performed By: #### 1 [id number] #### [facility] [address] [place] [address] Size (Stone) [Entitic vol] 3x3 Invalid Interpretation Code [facility] Comment on above: Result Comment: Mult iple pieces received. Dimensions of the largest piece reported. Performed By: #### 1 [id number] #### [facility] [address] [place] [address] Specimen source subject Nom Comment Invalid Interpretation Code [facility] Comment on above: Result Comment: Not provided Performed By: #### 1 [id number] #### [facility] [address] [place] [address] Stone Photo Comment Invalid Interpretation Code [facility] Comment on above: Result Comment: Phot ograph will follow under a separate cover Performed By: #### 1 [id number] #### [facility] [address] [place] [address] Weight (Stone) 75 mg Invalid Interpretation Code [facility] Comment on above: Performed By: #### 1 [id number] #### [facility] [address] [place] [address] Ambulatory Visit Summaryon 0 04-19-2023 Ambulatory Visit Summary REX MARCELINO :1995 Visit Date:04/19/2023 Ambulatory Visit Instructions Your Care Team Attending Physician - Ricky SAWYER, Danette Alston Primary Care Physician - Perez Brock DO This Is Your Medications List fexofenadine (Sharlene) Procedures Performed ESWL - Extracorporeal shockwave lithotripsy for renal calculus (02/23/2023), Cystoscopy (01/11/2023). What to do next Scheduled Follow-Up Appointments Wednesday 8:15 AM EDT With: Ricky SAWYER, Danette Alston Where: [facility] Lab Reportson 04-15-2023 Lab Reports [id number] CD:127 Normal [facility] Calcium [Mass/volume] in Ser um or PlasmaOrdered By: Danette García on 04-14-2023 Calcium [Mass/Vol] 10.1 mg/dL Normal 8.6-10.3 [facility] Comment on above: Performed By: #### L YTES, URIC, BUN, CREAT, PTH, CA ####[facility] [id number] Carbon dioxide, total [Moles /volume] in Serum or PlasmaOrdered By: Danette García on 04-14-2023 CO2 [Moles/Vol] 29.1 mmol/L Normal 21.0-31.0 [facility] Comment on above: Performed By: #### L YTES, URIC, BUN, CREAT, PTH, CA #### [facility] [address] Chloride [Moles/volume] in S adis or PlasmaOrdered By: Danette García on 04-14-2023 Chloride [Moles/Vol] 102 mmol/L Normal 98-107 [facility] Comment on above: Performed By: #### L YTES, URIC, BUN, CREAT, PTH, CA #### [facility] [address] Creatinineon 04-14-2023 GFR/1.73 sq M.predicted MDRD (S/P/Bld) [Vol rate/Area] mL/min/{1.73_m2} Normal [facility] Comment on above: Performed By: #### L YTES, URIC, BUN, CREAT, PTH, CA ####[facility] Creatinine [Mass/volume] in Serum or PlasmaOrdered By: Danette García on 04-14-2023 Creatinine [Mass/Vol] 1.06 mg/dL Normal 0.70-1.[address] [facility] Comment on above: Performed By: #### L YTES, URIC, BUN, CREAT, PTH, CA ####[facility] No Panel InformationOrdered By: Danette García on 04-14-2023 Estimated GFR (CKD-EPI) > 60.0 mL/Min [facility] Creatinine Clearance (Chem N/A [facility] Parathyrin.intact [Mass/volu me] in Serum or PlasmaOrdered By: Danette García on 04-14-2023 Parathyrin.intact [Mass/Vol] 93.2 pg/mL [facility] Parathyroid Hormone Intacton 04-14-2023 Parathyroid Hormone Intact 93.2 pg/mL High [facility] Comment on above: Result Comment: PERF ORMED BY: [place] [address] PATHOLOGIST TABLE WORKER GIBSON DOSS M.D. Performed By: #### L YTES, URIC, BUN, CREAT, PTH, CA ####[facility] [place] [id number] [place] Potassium [Moles/volume] in Serum or PlasmaOrdered By: Danette García on 04-14-2023 Potassium [Moles/Vol] 4.2 mmol/L Normal 3.5-5.[address] [facility] Comment on above: Performed By: #### L YTES, URIC, BUN, CREAT, PTH, CA #### [facility] [address] Serum or plasma anion gap de terminationOrdered By: Danette García on 04-14-2023 Anion gap [Moles/Vol] 11.1 mmol/L Normal 6.0-15.0 [facility] Comment on above: Performed By: #### L YTES, URIC, BUN, CREAT, PTH, CA #### [facility] [address] [place] [address] Sodium [Moles/volume] in Ser um or PlasmaOrdered By: Danette García on 04-14-2023 Sodium [Moles/Vol] 138 mmol/L Normal 136-145 [facility] Comment on above: Performed By: #### L YTES, URIC, BUN, CREAT, PTH, CA #### [facility] [address] [place] [address] Urate [Mass/volume] in Serum or PlasmaOrdered By: Danette García on 04-14-2023 Urate [Mass/Vol] 6.1 mg/dL Normal 4.4-7.6 [facility] Comment on above: Result Comment: PERF ORMED BY: [place] [address] PATHOLOGIST TABLE WORKER GIBSON DOSS M.D. Performed By: #### L YTES, URIC, BUN, CREAT, PTH, CA ####[place] [id number] [place] Urea nitrogen [Mass/volume] in Serum or PlasmaOrdered By: Danette García on 04-14-2023 Urea nitrogen [Mass/Vol] 15 mg/dL Normal 7-25 [facility] Comment on above: Performed By: #### L YTES, URIC, BUN, CREAT, PTH, CA #### [facility] [address] XR lumbar spine 6V w bending on 04-14-2023 XR lumbar spine 6V w bending [facility] [address] [place] [address] XRay Report Signed Patient: Rex Marcelino MR#: [id number] : 1995 Acct:[id number] Age/Sex: 27 / M ADM Date: 04/14/23 Loc: XD Room: Type: [facility] Attending Dr: Perez Brock DO Copies to: Perez Brock DO Ordering Provider: Perez Brock DO Date [...] Lio Cowart M.D.04/14/2023 8:54 PM Dictation Location: [place] [address] Transcribed By: [facility] 04/14/232053 Dictated By: Lio Cowart DO 04/14/232049 Signed By: 04/14/232053 Normal [facility] Basophils Auto (Bld) [#/Vol] Ordered By: Danette García on 02-10-2023 Basophils (Bld) [#/Vol] 0.1 10*3/uL 0.0-0.2 [facility] Basophils/100 WBC Auto (Bld) Ordered By: Danette García on 02-10-2023 Basophils/100 WBC (Bld) 0.7 % . [facility] Calcium [Mass/volume] in Ser um or PlasmaOrdered By: Danette García on 02-10-2023 Calcium [Mass/Vol] 9.7 mg/dL 8.6-10.3 [facility] Carbon dioxide, total [Moles /volume] in Serum or PlasmaOrdered By: Danette García on 02-10-2023 CO2 [Moles/Vol] 29.7 mmol/L 21.0-31.0 [facility] Chloride [Moles/volume] in S adis or PlasmaOrdered By: Danette García on 02-10-2023 Chloride [Moles/Vol] 102 mmol/L 98-107 [facility] Creatinine [Mass/volume] in Serum or PlasmaOrdered By: Danette García on 02-10-2023 Creatinine [Mass/Vol] 1.16 mg/dL 0.70-1.[address] [facility] Eosinophils Auto (Bld) [#/Vo l]Ordered By: Danette García on 02-10-2023 Eosinophils (Bld) [#/Vol] 0.5 10*3/uL 0.0-0.45 [facility] Eosinophils/100 WBC Auto (Bl d)Ordered By: Danette García on 02-10-2023 Eosinophils/100 WBC (Bld) 5.3 % . [facility] Erythrocyte distribution wid th Auto (RBC) [Ratio]Ordered By: Danette García on 02-10-2023 Erythrocyte distribution width (RBC) [Ratio] 12.9 % 12.0-14.8 [facility] Glucose [Mass/volume] in Ser um or PlasmaOrdered By: Danette García on 02-10-2023 Glucose [Mass/Vol] 87 mg/dL 70-100 [facility] Comment on above: ADA recommended refe rence rangeRandom Glucose Reference Range is dependent on time and content of last meal. Glucose of more than 200 mg/dL in a nonstressed, ambulatory subject supports the diagnosis of Diabetes Mellitus. Hematocrit Auto (Bld) [Volum e fraction]Ordered By: Danette García on 02-10-2023 Hematocrit (Bld) [Volume fraction] 46.5 % 38.8-50.0 [facility] Hemoglobin [Mass/volume] in BloodOrdered By: Danette García on 02-10-2023 Hemoglobin (Bld) [Mass/Vol] 15.7 g/dL 13.0-17.0 [facility] Leukocytes [#/volume] correc kristie for nucleated erythrocytes in Blood by Automated counOrdered By: Danette García on 02-10-2023 WBC corrected for nucl RBC Auto (Bld) [#/Vol] 8.9 10*3/uL 4.1-10.5 [facility] Lymphocytes Auto (Bld) [#/Vo l]Ordered By: Danette García on 02-10-2023 Lymphocytes (Bld) [#/Vol] 2.9 10*3/uL 1.00-4.8 [facility] Lymphocytes/100 WBC Auto (Bl d)Ordered By: Danette García on 02-10-2023 Lymphocytes/100 WBC (Bld) 32.9 % . [facility] MCH Auto (RBC) [Entitic mass ]Ordered By: Danette García on 02-10-2023 MCH (RBC) [Entitic mass] 28.0 pg 27.5-35.2 [facility] MCHC Auto (RBC) [Mass/Vol]Or dered By: Danette García on 02-10-2023 MCHC (RBC) [Mass/Vol] 33.7 g/dL 32.5-35.6 [facility] MCV Auto (RBC) [Entitic vol] Ordered By: Danette García on 02-10-2023 MCV (RBC) [Entitic vol] 83.0 fL 83.5-101 [facility] Monocytes Auto (Bld) [#/Vol] Ordered By: Danette García on 02-10-2023 Monocytes (Bld) [#/Vol] 0.6 10*3/uL 0.0-0.8 [facility] Monocytes/100 WBC Auto (Bld) Ordered By: Danette García on 02-10-2023 Monocytes/100 WBC (Bld) 7.0 % . [facility] Neutrophils Auto (Bld) [#/Vo l]Ordered By: Danette García on 02-10-2023 Neutrophils (Bld) [#/Vol] 4.8 10*3/uL 1.8-7.7 [facility] Neutrophils/100 WBC Auto (Bl d)Ordered By: Danette García on 02-10-2023 Neutrophils/100 WBC (Bld) 54.1 % . [facility] No Panel InformationOrdered By: Danette García on 02-10-2023 Estimated GFR (CKD-EPI) > 60.0 mL/Min [facility] Creatinine Clearance (Chem N/A [facility] Nucleated erythrocytes [Pres ence] in Blood by Automated countOrdered By: Danette García on 02-10-2023 Nucleated RBC Auto Ql (Bld) 0.2 /100{WBC} 0-0.5 [facility] Platelet mean volume Auto (B ld) [Entitic vol]Ordered By: Danette García on 02-10-2023 Platelet mean volume (Bld) [Entitic vol] 8.2 fL 6.6-10.1 [facility] Platelets Auto (Bld) [#/Vol] Ordered By: Danette García on 02-10-2023 Platelets (Bld) [#/Vol] 286 10*3/uL 150-450 [facility] Potassium [Moles/volume] in Serum or PlasmaOrdered By: Danette García on 02-10-2023 Potassium [Moles/Vol] 4.2 mmol/L 3.5-5.[address] [facility] RBC Auto (Bld) [#/Vol]Ordere d By: Danette García on 02-10-2023 RBC (Bld) [#/Vol] 5.61 10*6/uL 3.90-5.60 [facility] Serum or plasma anion gap de terminationOrdered By: Danette García on 02-10-2023 Anion gap [Moles/Vol] 11.5 mmol/L 6.0-15.0 [facility] Sodium [Moles/volume] in Ser um or PlasmaOrdered By: Danette García on 02-10-2023 Sodium [Moles/Vol] 139 mmol/L 136-145 [facility] Urea nitrogen [Mass/volume] in Serum or PlasmaOrdered By: Danette García on 02-10-2023 Urea nitrogen [Mass/Vol] 13 mg/dL 7-25 [facility] WBC Auto (Bld) [#/Vol]Ordere d By: Danette García on 02-10-2023 WBC (Bld) [#/Vol] 8.9 10*3/uL 4.1-10.5 [facility] No Panel InformationOrdered By: Mikki Plummer on 10-31-2022 Semen Analysis Comment . [facility] Comment on above: Highly gelatenous sp ecimen. Semen Appearance Normal Normal [facility] Semen pH 8.0 7.2-10 [facility] Semen Round Cell Concentration Moderate [facility] Semen WBC Concentration >= 1.0 M/mL <0.9 [facility] Sperm % Non-Motile 22 % [facility] Sperm Motility Total 78.0 % >40 [facility] Qualitative semen viscosityO rdered By: Mikki Plummer on 10-31-2022 Viscosity Ql (Malika) Abnormal Normal [facility] Semen liquefaction time andrew urementOrdered By: Mikki Plummer on 10-31-2022 Liquefaction (Malika) [Time] Abnormal <=60 min [facility] Semen volumeOrdered By: Daphnie Plummer on 10-31-2022 Specimen volume (Malika) 3.5 mL >1.[address] [facility] Sperm countOrdered By: Shaq Plummer on 10-31-2022 [place] (Malika) [#/Vol] 29.5 M/mL >15 [facility] Sperm morphologyOrdered By: Mikki Plummer on 10-31-2022 [place] Nom (Malika) 18.0 % >4.[address] [facility] XR KUB 1 VIEWon 06-05-2020 XR [...] JORJE PELLETIER Date: 2020-06-05 13:16 Normal [facility] CITRATE URINE 24HRon 020 Citric Acid, U, 24hr 471 mg/24 hr Normal 320-1240 Th e [facility] Comment on above: Result Comment: This test was developed and its performance characteristics determined by [facility]. It has not been cleared or approved by the Food and Drug Administration. Performed By: #### C ITRATU #### [facility] [address] [place] [address] Marlena Kathleen Citric Acid, Urine 428 mg/L Normal Undefined [facility] Comment on above: Result Comment: For proper preservation, the pH of urine for analysis of oxalate or citric acid must be <3.0. Specimen received was not preserved correctly, therefore results may be questionable. Performed By: #### C ITRATU #### [facility] [address] [place] [address] Marlena Kathleen OXALATE 24HR URINEon 020 Oxalates, Urine 26 mg/L Normal Undefined [facility] Comment on above: Performed By: #### O X24HR #### [facility] [address] [place] [address] Marlena Kathleen Oxalates, Urine 24hr 29 mg/24 hr Normal 7-44 [facility] Comment on above: Performed By: #### O X24HR #### [facility] [address] [place] [address] Marlena Kathleen MAGNESIUM 24HR URINEon 05-25 Magnesium 24hr Urine 110.0 mg/24 hr Normal 12.0-293.0 [facility] Comment on above: Performed By: #### M AG24 #### [facility] [address] [place] [address] Marlena Kathleen Magnesium UR 10.0 mg/dL Normal Not Estab. [facility] Comment on above: Performed By: #### M AG24 #### [facility] [address] [place], [place] [address] Marlena Kathleen PHOSPHORUS 24HR URINEon 04-27 Phosphorus, Urine 94.5 mg/dL Normal Not Estab. [facility] Comment on above: Performed By: #### P HOS 24 #### [facility] [address], [place] [address] Marlena Kathleen Phosphorus, Urine 24hr 1040 mg/24 hr Normal 390-1425 [facility] Comment on above: Performed By: #### P HOS 24 #### [facility] [address] [place] [address] Marlena Kathleen PTH INTACTon 05-25-2020 PTH, Intact 42 pg/mL Normal 15-65 [facility] Comment on above: Performed By: #### P THINT #### [facility] [address] [place] [address] Marlena Kathleen URIC ACID 24 HR URINEon 04-27 Uric Acid, Urine 78.2 mg/dL Normal Not Estab. [facility] Comment on above: Performed By: #### C [id number] #### [facility] [address] [place] [address] Marlena Kathleen Uric Acid, Urine 24hr 860.2 mg/24 hr Normal 197.2-1078 .7 [facility] Comment on above: Performed By: #### C ALC24U #### [facility] [address] [place] [address] Marlena Kathleen BUNon 05-24-2020 Urea nitrogen [Mass/Vol] 14.0 mg/dL Normal 9.0-20.0 [facility] Comment on above: Performed By: #### C ITRATU #### [facility] [address] [place] [address] Marlena Kathleen CALCIUMon 05-24-2020 Calcium [Mass/Vol] 9.5 mg/dL Normal 8.4-10.2 [facility] Comment on above: Performed By: #### C BC #### [facility] [address] [place] [address] Marlena Kathleen CALCIUM 24 HR URINEon 2019 CALC, 24 HR UR 276.1 mg/24 hr Normal 100.0-300.0 [facility] Comment on above: Performed By: #### C ALC24U #### [facility] [address] [place] [address] Marlena Kathleen UR CALCIUM 25.1 mg/dl Critically high 0.0-21.0 [facility] Comment on above: Performed By: #### C ALC24U #### [facility] [address] [place] [address] Marlena Kathleen CHLORIDEon 05-24-2020 Chloride [Moles/Vol] 102 mmol/L Normal 98-107 [facility] Comment on above: Performed By: #### C BC #### [facility] [address] [place] [address] Marlena Kathleen CO2on 05-24-2020 CO2 [Moles/Vol] 32.6 mmol/L Critically high 22.0-30.0 [facility] Comment on above: Performed By: #### C ITRATU #### [facility] [address] [place] [address] Marlena Kathleen CREA 24 HR URINEon 0 CREA, 24 HR UR 2115.30 mg/24 hr Critically high 1,000. 00-2,0 00.00 [facility] Comment on above: Performed By: #### C [id number] #### [facility] [address] [place] [address] Marlena Kathleen UR TOT VOL 1100 ml/24 HR Normal [facility] Comment on above: Performed By: #### C [id number] #### [facility] [address] [place] [address] Marlena Kathleen URINE CREAT 192.30 mg/dL Normal 20.00-300.00 [facility] Comment on above: Performed By: #### C ALC24U #### [facility] [address] [place] [address] Marlena Kathleen CREATININEon 05-24-2020 Creatinine [Mass/Vol] mg/dL Normal >=60 [facility] Comment on above: Performed By: #### C ITRATU #### [facility] [address] [place], [place] [address] Marlena Kathleen Creatinine [Mass/Vol] 0.87 mg/dL Normal 0.66-1.25 [facility] Comment on above: Performed By: #### C ITRATU #### [facility] [address] [place] [address] Marlena Kathleen NAon 05-24-2020 Sodium [Moles/Vol] 140 mmol/L Normal 137-145 [facility] Comment on above: Performed By: #### C ITRATU #### [facility] [address] [place] [address] Marlena Kathleen PH URINEon 05-24-2020 pH (U) 6.0 [pH] Normal 5-9 [facility] Comment on above: Performed By: #### C ITRATU #### [facility] [address] [place] [address] Marlena Kathleen POTASSIUMon 05-24-2020 Potassium [Moles/Vol] 3.6 mmol/L Normal 3.4-5.0 [facility] Comment on above: Performed By: #### C BC #### [facility] [address] [place], [place] [id number] Marlena Kathleen SODIUM 24 HR URINEon 020 NA, 24 HR UR 172 mmol/24 hr Normal 40-220 [facility] [facility] Comment on above: Performed By: #### C [id number] #### [facility] [address] [place], [place] [id number] Marlena Kathleen Sodium (U) [Moles/Vol] 156 mmol/L Critically high 30-90 [facility] Comment on above: Performed By: #### C [id number] #### [facility] [address] [place], [place] [id number] Marlena Kathleen URIC ACID SERUMon 05-24-2020 Urate [Mass/Vol] 6.3 mg/dL Normal 3.5-8.5 [facility] Comment on above: Performed By: #### C ITRATU #### [facility] [address] [place], [place] [id number] Marlena Kathleen VITAMIN D 25 OHon 05-24-2020 VIT D 25-OH 23.4 ng/mL Normal [facility] Comment on above: Performed By: #### V ITAD #### [facility] [address] [place], [place] [id number] Marlena Kathleen VIT D RANGES SEE BELOW Normal [facility] Comment on above: Result Comment: <20 ng/mL Vit D deficient 20 - <30 ng/mL Vit D insufficient 30 - 100 ng/mL Vit D sufficient >100 ng/mL Potential Toxicity Performed By: #### V ITAD #### [facility] [address] [place] [address] Marlena Kathleen VITDH PLEASE NOTE: NORMAL RANGE CHANGE 03-30-2013, TESTING PERFORMED AT [facility]. Normal [facility] Comment on above: Performed By: #### V ITAD #### [facility] [address] [place], [place] [phone] Marlena Kathleen CITRATE URINE 24HRon 020 Citric Acid, U, 24hr 494 mg/24 hr Normal 320-1240 Th [facility] Comment on above: Result Comment: This test was developed and its performance characteristics determined by [facility]. It has not been cleared or approved by the Food and Drug Administration. Performed By: #### C ITRATU #### [facility] [address] [place] [address] Marlena Kathleen Citric Acid, Urine 380 mg/L Normal Undefined [facility] Comment on above: Performed By: #### C ITRATU #### [facility] [address] [place], [place] [phone] Marlena Kathleen OXALATE 24HR URINEon 020 Oxalates, Urine 23 mg/L Normal Undefined [facility] Comment on above: Performed By: #### C ALCULI #### [facility] [address] [place] [address] Marlena Kathleen Oxalates, Urine 24hr 30 mg/24 hr Normal 7-44 [facility] Comment on above: Performed By: #### C ALCULI #### [facility] [address] [place] [address] Marlena Kathleen MAGNESIUM 24HR URINEon 03-28 Magnesium 24hr Urine 171.6 mg/24 hr Normal 12.0-293.0 [facility] Comment on above: Performed By: #### C [id number] #### [facility] [address] [place] [address] Marlena Kathleen Magnesium UR 13.2 mg/dL Normal Not Estab. The [facility] Comment on above: Performed By: #### C [id number] #### [facility] [address] [place], [place] [phone] Marlena Kathleen PHOSPHORUS 24HR URINEon Phosphorus, Urine 108.4 mg/dL Normal Not Estab. The [facility] Comment on above: Performed By: #### C [id number] #### [facility] [address] [place] [address] Marlena Kathleen Phosphorus, Urine 24hr 1409 mg/24 hr Normal 390-1425 [facility] Comment on above: Performed By: #### C [id number] #### [facility] [address] [place] [address] Marlena Kathleen PTH INTACTon 03-28-2020 PTH, Intact 57 pg/mL Normal 15-65 [facility] Comment on above: Performed By: #### C ITRATU #### [facility] [address] [place] [address] Marlena Kathleen BUNon 03-26-2020 Urea nitrogen [Mass/Vol] 16.0 mg/dL Normal 9.0-20.0 [facility] Comment on above: Performed By: #### C ALCULI #### [facility] [address] [place] [address] Marlena Kathleen CALCIUMon 03-26-2020 Calcium [Mass/Vol] 9.0 mg/dL Normal 8.4-10.2 [facility] Comment on above: Performed By: #### C BC #### [facility] [address] [place] [address] Marlena Kathleen CALCIUM 24 HR URINEon 2019 CALC, 24 HR UR 608.4 mg/24 hr Critically high 100.0-300.0 [facility] Comment on above: Performed By: #### C [id number] #### [facility] [address] [place] [address] Marlena Kathleen UR CALCIUM 46.8 mg/dl Critically high 0.0-21.0 [facility] Comment on above: Performed By: #### C [id number] #### [facility] [address] [place] [address] Marlena Kathleen UR TOT VOL 1300 ml/24 HR Normal [facility] Comment on above: Performed By: #### C [id number] #### [facility] [address] [place] [address] Marlena Kathleen Performed By: #### C ITRATU #### [facility] [address] [place] [address] Marlena Kathleen CHLORIDEon 03-26-2020 Chloride [Moles/Vol] 103 mmol/L Normal 98-107 [facility] Comment on above: Performed By: #### C BC #### [facility] [address] [place] [address] Marlena Kathleen CO2on 03-26-2020 CO2 [Moles/Vol] 29.1 mmol/L Normal 22.0-30.0 [facility] Comment on above: Performed By: #### C BC #### [facility] [address] [place] [address] Marlena Kathleen CREA 24 HR URINEon 0 CREA, 24 HR UR 2416.57 mg/24 hr Critically high 1,000. 00-2,0 00.00 [facility] Comment on above: Performed By: #### C ITRATU #### [facility] [address] [place] [address] Marlena Kathleen URINE CREAT 185.89 mg/dL Normal 20.00-300.00 [facility] Comment on above: Performed By: #### C ITRATU #### [facility] [address] [place] [address] Marlena Kathleen CREATININEon 03-26-2020 Creatinine [Mass/Vol] 1.09 mg/dL Normal 0.66-1.25 [facility] Comment on above: Performed By: #### C BC #### [facility] [address] [id number] Marlena Kathleen Creatinine [Mass/Vol] mg/dL Normal >=60 [facility] Comment on above: Performed By: #### C BC #### [facility] [address] [place] [address] Marlena Kathleen NAon 03-26-2020 Sodium [Moles/Vol] 140 mmol/L Normal 137-145 [facility] Comment on above: Performed By: #### C BC #### [facility] [address] [place] [address] Marlena Kathleen POTASSIUMon 03-26-2020 Potassium [Moles/Vol] 4.0 mmol/L Normal 3.4-5.0 [facility] Comment on above: Performed By: #### C BC #### [facility] [address] [place] [address] Marlena Kathleen SODIUM 24 HR URINEon 020 NA, 24 HR UR 182 mmol/24 hr Normal 40-220 [facility] Comment on above: Performed By: #### C ITRATU #### [facility] [address] [place] [address] Marlena Kathleen Sodium (U) [Moles/Vol] 140 mmol/L Critically high 30-90 [facility] Comment on above: Performed By: #### C ITRATU #### [facility] [address] [place] [address] Marlena Kathleen URIC ACID SERUMon 03-26-2020 Urate [Mass/Vol] 5.9 mg/dL Normal 3.5-8.5 [facility] Comment on above: Performed By: #### C BC #### [facility] [address] [place], [place] [phone] Marlena Kathleen CALCULI, URINARYon 0 2,8 Dihydroxyadenine Normal [facility] Comment on above: Performed By: #### C ALCULI #### [facility] [address] [place] [address] Marlena Kathleen Ammonium Acid Urate Normal [facility] Comment on above: Performed By: #### C ALCULI #### [facility] [address] [address] Marlena Kathleen Bilirubin [Mass/Vol] Normal [facility] Comment on above: Performed By: #### C ALCULI #### [facility] [address] [address] Marlena Kathleen Ca Oxalate Dihydrate 90 % Normal [facility] Comment on above: Performed By: #### C ALCULI #### [facility] [address] [address] Marlena Kathleen CaHPO4 (Brushite) Normal [facility] Comment on above: Performed By: #### C ALCULI #### [facility] [address] [address] Marlena Kathleen Calcium Bilirubinate Normal [facility] Comment on above: Performed By: #### C ALCULI #### [facility] [address] [address] Marlena Kathleen Calcium Carbonate Normal [facility] Comment on above: Performed By: #### C ALCULI #### [facility] [address] [address] Marlena Kathleen Calcium Oxalate Monohydrate 5 % Normal [facility] Comment on above: Performed By: #### C ALCULI #### [facility] [address] [address] Marlena Kathleen Calcium Palmitate Normal [facility] Comment on above: Performed By: #### C ALCULI #### [facility] [address] [place] [address] Marlena Kathleen Calcium Phosphate Normal [facility] Comment on above: Performed By: #### C ALCULI #### [facility] [address] [place] [address] Marlena Kathleen Calcium Stearate Normal [facility] Comment on above: Performed By: #### C ALCULI #### [facility] [address] [place] [address] Marlena Kathleen Carbonate Apatite Normal [facility] Comment on above: Performed By: #### C ALCULI #### [facility] [address] [address] Marlena Kathleen Cellular Material Normal [facility] Comment on above: Performed By: #### C ALCULI #### [facility] [address] [address] Marlena Kathleen Cholesterol [Mass/Vol] Normal [facility] Comment on above: Performed By: #### C ALCULI #### [facility] [address] [address] Marlena Kathleen Color (U) Chamberlain Normal [facility] Comment on above: Performed By: #### C ALCULI #### [facility] [address] [address] Marlena Kathleen Comment Normal [facility] Comment on above: Performed By: #### C ALCULI #### [facility] [address] [place] [address] Marlena Kathleen Comment: Comment Normal [facility] Comment on above: Result Comment: Phys aquilesan questions regarding Calculi Analysis contact [facility] at: [phone]. Performed By: #### C ALCULI #### [facility] [address] [place] [address] Marlena Kathleen Composition Comment Normal [facility] Comment on above: Result Comment: Perc entage (Represents the % composition) Performed By: #### C ALCULI #### [facility] [address] [place] [address] Marlena Kathleen Cystine Normal [facility] Comment on above: Performed By: #### C ALCULI #### [facility] [address] [place] [address] Marlena Kathleen Disclaimer: Comment Normal [facility] Comment on above: Result Comment: This test was developed and its performance characteristics determined by [facility]. It has not been cleared or approved by the Food and Drug Administration. Performed By: #### C ALCULI #### [facility] [address] [place] [address] Marlena Kathleen Dried Blood Normal [facility] Comment on above: Performed By: #### C ALCULI #### [facility] [address] [place] [address] Marlena Kathleen Drug or Metabolite Normal [facility] Comment on above: Performed By: #### C ALCULI #### [facility] [address] [address] Marlena Kathleen Hydroxyapatite 5 % Normal [facility] Comment on above: Performed By: #### C ALCULI #### [facility] [address] [address] Marlena Kathleen Mg NH4 PO4 (Struvite) [facility] Comment on above: Performed By: #### C ALCULI #### [facility] [address] [address] Marlena Kathleen MgHPO4 (Newberyite) [facility] Comment on above: Performed By: #### C ALCULI #### [facility] [address] [address] Marlena Kathleen Other component(s) [facility] Comment on above: Performed By: #### C ALCXUAN #### [facility] [address] [address] Marlena Kathleen PDF . Normal [facility] Comment on above: Performed By: #### C ALCULI #### [facility] [address] [address] Marlena Kathleen Photo Comment [facility] Comment on above: Result Comment: Phot ograph will follow under a separate cover Performed By: #### C ALCXUAN #### [facility] [address] [place] [address] Marlena Kathleen Please note: Comment Normal [facility] Comment on above: Result Comment: Calc xuan report will follow via computer, mail or reliability specialist delivery. Performed By: #### C ALCULI #### [facility] [address] [address] Marlena Kathleen Size 4x3 [facility] Comment on above: Result Comment: Mult iple pieces received. Dimensions of the largest piece reported. Performed By: #### C ALCULI #### [facility] [address] [address] Marlena Kathleen Sodium (U) [Moles/Vol] Normal [facility] Comment on above: Performed By: #### C ALCULI #### [facility] [address] [place], [place] [address] Marlena Kathleen Source Comment Normal [facility] Comment on above: Result Comment: Not provided Performed By: #### C ALCULI #### [facility] [address] [place], [place] [address] Marlena Kathleen Triamterene Normal [facility] Comment on above: Performed By: #### C ALCULI #### [facility] [address] [place] [address] Marlena Kathleen Urate [Mass/Vol] Normal [facility] Comment on above: Performed By: #### C ALCXUAN #### [facility] [address] [place] [address] Marlena Kathleen Uric Acid Dihydrate Normal [facility] Comment on above: Performed By: #### C ALCULI #### [facility] [address] [place] [address] Marlena Kathleen Weight 32 mg Normal [facility] Comment on above: Performed By: #### C ALCULI #### [facility] [address] [place] [address] Marlena Kathleen Xanthine [facility] Comment on above: Performed By: #### C ALCXUAN #### [facility] [address] [place] [address] Marlena Kathleen CBC AUTO DIFFon 01-29-2020 Basophils (Bld) [#/Vol] 0.0 103/ul Normal 0.0-0.1 [facility] Comment on above: Performed By: #### C BC #### [facility] [address] [place] [address] Marlena Kathleen Basophils/100 WBC (Bld) 0.5 % Normal 0.2-2.0 [facility] Comment on above: Performed By: #### C BC #### [facility] [address] [place] [address] Marlena Kathleen Eosinophils (Bld) [#/Vol] 0.4 103/ul Normal 0.0-0.7 [facility] Comment on above: Performed By: #### C BC #### [facility] [address] [place], [place] [address] Marlena Kathleen Eosinophils/100 WBC (Bld) 4.5 % Normal 0.9-7.0 [facility] Comment on above: Performed By: #### C BC #### [facility] [address] [place], [place] [address] Marlena Kathleen Erythrocyte distribution width (RBC) [Ratio] 12.0 % Normal 11.0-15.0 [facility] Comment on above: Performed By: #### C BC #### [facility] [address] [place], [place] [address] Marlena Kathleen Hematocrit (Bld) [Volume fraction] 48.1 % Normal 42.0-54.0 [facility] Comment on above: Performed By: #### C BC #### [facility] [address] [place] [address] Marlena Kathleen Hemoglobin (Bld) [Mass/Vol] 16.4 g/dL Normal 14.0-18.0 [facility] Comment on above: Performed By: #### C BC #### [facility] [address] [place], [place] [address] Marlena Kathleen IG # 0.03 10e3/ul Normal 0.00-0.03 [facility] Comment on above: Performed By: #### C BC #### [facility] [address] [place] [address] Marlena Kathleen IG % 0.4 % Normal 0.0-0.5 [facility] Comment on above: Performed By: #### C BC #### [facility] [address] [place], [place] [address] Marlena Kathleen Lymphocytes (Bld) [#/Vol] 2.4 103/ul Normal 1.2-3.8 [facility] Comment on above: Performed By: #### C BC #### [facility] [address] [place], [place] [address] Marlena Kathleen Lymphocytes/100 WBC (Bld) 29.8 % Normal 20.5-60.0 [facility] Comment on above: Performed By: #### C BC #### [facility] [address] [place] [address] Marlena Kathleen MANUAL DIFF REQ NO Normal [facility] Comment on above: Performed By: #### C BC #### [facility] [address] [place], [place] [address] Marlena Kathleen MCH (RBC) [Entitic mass] 28.7 pg Normal 25.9-34.0 [facility] Comment on above: Performed By: #### C BC #### [facility] [address] [place], [place] [address] Marlenajenny Wang MCHC (RBC) [Mass/Vol] 34.1 g/dL Normal 29.9-35.2 [facility] Comment on above: Performed By: #### C BC #### [facility] [address] [place], [place] [address] Marlena Kathleen MCV (RBC) [Entitic vol] 84.1 fL Normal 80.0-94.0 [facility] Comment on above: Performed By: #### C BC #### [facility] [address] [place], [place] [address] Marlena Kathleen Monocytes (Bld) [#/Vol] 0.6 103/ul Normal 0.3-0.8 [facility] Comment on above: Performed By: #### C BC #### [facility] [address] [place], [place] [address] Marlena Kathleen Monocytes/100 WBC (Bld) 7.5 % Normal 1.7-12.0 [facility] Comment on above: Performed By: #### C BC #### [facility] [address] [place], [place] [address] Marlena Kathleen Neutrophils (Bld) [#/Vol] 4.7 103/ul Normal 1.4-6.5 [facility] Comment on above: Performed By: #### C BC #### [facility] [address] [place], [place] [address] Marlena Kathleen Neutrophils/100 WBC (Bld) 57.3 % Normal 43.0-75.0 [facility] Comment on above: Performed By: #### C BC #### [facility] [address] [place], [place] [address] Marlenajenny Wang Platelet mean volume (Bld) [Entitic vol] 10.1 fL Normal 9.5-13.5 [facility] Comment on above: Performed By: #### C BC #### [facility] [address] [place], [place] [address] Marlenajenny Wang Platelets (Bld) [#/Vol] 297 103/ul Normal 150-450 T [facility] Comment on above: Performed By: #### C BC #### [facility] [address] [place] [address] Marlenajenny Wang RBC (Bld) [#/Vol] 5.72 106/ul Normal 4.70-6.10 [facility] Comment on above: Performed By: #### C BC #### [facility] [address] [place] [address] Marlenajenny Wang WBC (Bld) [#/Vol] 8.2 103/ul Normal 4.0-11.0 [facility] Comment on above: Performed By: #### C BC #### [facility] [address] [place] [address] ABD/PELVIS WO CONon 01-28 CT [...] PEREZ JAMES Date: 2020-01-29 07:13 Normal [facility] ER URINE PROFILEon 0 Bilirubin [Mass/Vol] Negative Normal NEGATIVE [facility] Comment on above: Performed By: #### C [id number] #### [facility] [address] [place] [address] Marlena Kathleen BLOOD LARGE Normal NEGATIVE [facility] Comment on above: Performed By: #### C [id number] #### [facility] [address] [place] [address] Marlena Kathleen Clarity (U) CLEAR Normal [facility] Comment on above: Performed By: #### C [id number] #### [facility] [address] [place] [address] Marlena Kathleen Color (U) YELLOW Normal YELLOW The [facility] Comment on above: Performed By: #### C [id number] #### [facility] [address] [place] [address] Marlena Kathleen ERUAHD A micrscopic examination will be performed if indicated. Normal The [facility] Comment on above: Performed By: #### C [id number] #### [facility] [address] [address] Marlena Kathleen Glucose [Mass/Vol] Negative Normal NEGATIVE The [facility] Comment on above: Performed By: #### C [id number] #### [facility] [address] [place] [address] Marlena Kathleen Ketones Ql (U) Negative Normal NEGATIVE The [facility] Comment on above: Performed By: #### C [id number] #### [facility] [address] [place] [address] Marlena Wang Nitrite Ql (U) Negative Normal NEGATIVE [facility] Comment on above: Performed By: #### C [id number] #### [facility] [address] [place] [address] Marlena Wang pH (Bld) 5.5 Normal 5-9 [facility] Comment on above: Performed By: #### C [id number] #### [facility] [address] [place] [address] Marlena Wang Protein (U) [Mass/Vol] Negative Normal Th e [facility] Comment on above: Performed By: #### C [id number] #### [facility] [address] [place] [address] Marlena Wang SPEC GRAVITY >=1.030 Normal 1.005-<=1.02 5 [facility] Comment on above: Performed By: #### C [id number] #### [facility] [address] [place] [address] Marlena Wang UR MICRO IND INDICATED Normal [facility] Comment on above: Performed By: #### C [id number] #### [facility] [address] [place] [address] Marlena Wang Urobilinogen Qn (U) 0.2 EU/dl Normal [facility] Comment on above: Performed By: #### C [id number] #### [facility] [address] [place] [address] Marlenajenny Wang WBC (Bld) [#/Vol] Negative Normal NEGATIVE [facility] Comment on above: Performed By: #### C [id number] #### [facility] [address] [place] [address] Marlena Wang PROF 14(COMP METB)on 020 Albumin [Mass/Vol] 4.7 g/dL Normal 3.5-5.0 [facility] Comment on above: Performed By: #### C ITRATU #### [facility] [address] [place] [address] Marlena Wang Albumin/Globulin [Mass ratio] 1.3 {ratio} Normal [facility] Comment on above: Performed By: #### C ITRATU #### [facility] [address], [place] [address] Marlena Kathleen ALP [Catalytic activity/Vol] 86 U/L Normal 38-126 [facility] Comment on above: Performed By: #### C ITRATU #### [facility] [address], [place] [address] Marlena Kathleen ALT [Catalytic activity/Vol] 50 U/L Normal 21-72 [facility] Comment on above: Performed By: #### C ITRATU #### [facility] [address], [place] [address] Marlena Kathleen Anion gap [Moles/Vol] 14.8 mmol/L Normal Th e [facility] Comment on above: Performed By: #### C ITRATU #### [facility] [address] [place], [place] [phone] Marlena Kathleen AST [Catalytic activity/Vol] 31 U/L Normal 17-59 [facility] Comment on above: Performed By: #### C ITRATU #### [facility] [address] [id number] Marlena Kathleen Bilirubin Ql (U) 0.9 mg/dL Normal 0.2-1.3 [facility] Comment on above: Performed By: #### C ITRATU #### [facility] [address] [place], [place] [phone] Marlena Kathleen Calcium [Mass/Vol] 9.2 mg/dL Normal 8.4-10.2 [facility] Comment on above: Performed By: #### C ITRATU #### [facility] [address] [place] [address] Marlena Kathleen Chloride [Moles/Vol] 102 mmol/L Normal 98-107 [facility] Comment on above: Performed By: #### C ITRATU #### [facility] [address], [place] [address] Marlena Kathleen CO2 [Moles/Vol] 28.2 mmol/L Normal 22.0-30.0 [facility] Comment on above: Performed By: #### C ITRATU #### [facility] [address] [id number] Marlena Kathleen Creatinine [Mass/Vol] 0.97 mg/dL Normal 0.66-1.25 [facility] Comment on above: Performed By: #### C ITRATU #### [facility] [address] [place], [place] [phone] Marlena Kathleen EGFR-AF KENYAN >60 Normal >=60 [facility] Comment on above: Performed By: #### C ITRATU #### [facility] [address] [place], [place] [phone] Marlena Kathleen EGFR-NON AF KENYAN >60 Normal >=60 [facility] Comment on above: Performed By: #### C ITRATU #### [facility] [address] [place] [address] Marlena Kathleen Globulin (S) [Mass/Vol] 3.5 g/dL Normal T [facility] Comment on above: Performed By: #### C ITRATU #### [facility] [address] [place] [address] Marlena Kathleen Glucose [Mass/Vol] 103 mg/dL Normal 74-106 [facility] Comment on above: Performed By: #### C ITRATU #### [facility] [address] [place] [address] Marlena Kathleen Potassium [Moles/Vol] 4.0 mmol/L Normal 3.4-5.0 [facility] Comment on above: Performed By: #### C ITRATU #### [facility] [address] [place] [address] Marlena Kathleen Protein [Mass/Vol] 8.2 g/dL Normal 6.1-8.2 [facility] Comment on above: Performed By: #### C ITRATU #### [facility] [address] [place] [address] Marlena Kathleen Sodium [Moles/Vol] 141 mmol/L Normal 137-145 [facility] Comment on above: Performed By: #### C ITRATU #### [facility] [address] [place] [address] Marlena Kathleen Urea nitrogen [Mass/Vol] 15.0 mg/dL Normal 9.0-20.0 [facility] Comment on above: Performed By: #### C ITRATU #### [facility] [address] [place], [place] [phone] Marlena Kathleen Urea nitrogen/Creatinine [Mass ratio] 15.5 mg/mg Normal [facility] Comment on above: Performed By: #### C ITRATU #### [facility] [address] [place] [address] Marlena Kathleen URINE MICROSCOPIC ONLYon Bacteria LM.HPF (Urine sed) [#/Area] NONE SEEN Normal NONE SEEN The [facility] Comment on above: Performed By: #### C [id number] #### [facility] [address] [place] [address] Marlena Kathleen CAST NONE SEEN Normal NONE SEEN [facility] Comment on above: Performed By: #### C [id number] #### [facility] [address] [place] [address] Marlena Kathleen Crystals LM Nom (Urine sed) NONE SEEN Normal NONE SEEN The [facility] Comment on above: Performed By: #### C [id number] #### [facility] [address] [place] [address] Marlena Kathleen CULTURE NOT INDICATED Normal [facility] Comment on above: Performed By: #### C [id number] #### [facility] [address] [place] [address] Marlena Kathleen Epithelial cells LM.HPF (Urine sed) [#/Area] FEW Normal [facility] Comment on above: Performed By: #### C [id number] #### [facility] [address] [place], [place] [phone] Marlena Kathleen MUCOUS SMALL Normal NONE SEEN The [facility] Comment on above: Performed By: #### C [id number] #### [facility] [address] [place] [address] Marlena Kathleen RBC (U) [#/Vol] 10-20 Normal 0-2 [facility] Comment on above: Performed By: #### C [id number] #### [facility] [address], [place] [address] Marlena Wang WBC (Bld) [#/Vol] NONE SEEN Normal NONE SEEN [facility] Comment on above: Performed By: #### C [id number] #### [facility] [address], [place] [address] Marlena Wang Vital Signs Date Time Vital Sign Value Performing Clinician Facility 03-01-2024 13:47-0400 Body height 190.5 cm [facility] 03-01-2024 13:47-0400 Body mass index (BMI) [Ratio] 28.1 kg/m2 [facility] 03-01-2024 13:47-0400 Body temperature 99.1 [degF] [facility] 03-01-2024 13:47-0400 Body weight 102.05 kg [facility] 03-01-2024 13:47-0400 Diastolic blood pressure 80 mm[Hg] [facility] 03-01-2024 13:47-0400 Heart rate 88 /min [facility] 03-01-2024 13:47-0400 Respiratory rate 18 /min [facility] 03-01-2024 13:47-0400 SaO2% (BldA) [Mass fraction] 96 % [facility] 03-01-2024 13:47-0400 Systolic blood pressure 125 mm[Hg] [facility] 11-17-2023 08:08-0400 Body height 190.5 cm DO Perez Brock Work Phone: [facility] 11-17-2023 08:08-0400 Body mass index (BMI) [Ratio] 27.8 kg/m2 DO Perez Brock Work Phone: [facility] 11-17-2023 08:08-0400 Body temperature 98.2 [degF] DO Perez Brock Work Phone: [facility] 11-17-2023 08:08-0400 Body weight 101.15 kg DO Perez Brock Work Phone: [facility] 11-17-2023 08:08-0400 Diastolic blood pressure 76 mm[Hg] DO Perez Brock Work Phone: [facility] 11-17-2023 08:08-0400 Heart rate 68 /min DO Perez Brock Work Phone: [facility] 11-17-2023 08:08-0400 Respiratory rate 16 /min DO Perez Brock Work Phone: [facility] 11-17-2023 08:08-0400 SaO2% (BldA) [Mass fraction] 99 % DO Perez Brock Work Phone: [facility] 11-17-2023 08:08-0400 Systolic blood pressure 114 mm[Hg] DO Perez Brock Work Phone: [facility] 06-11-2023 09:35-0500 Diastolic blood pressure 77 mm[Hg] Danette Lue [facility] 06-11-2023 09:35-0500 Mean blood pressure 97 mm[Hg] Danette Lue [facility] 06-11-2023 09:35-0500 Systolic blood pressure 136 mm[Hg] Danette Lue [facility] 06-11-2023 09:16-0500 Blood Pressure Location Danette Lue [facility] 06-11-2023 09:16-0500 Diastolic blood pressure 92 mm[Hg] Danette Lue [facility] 06-11-2023 09:16-0500 Heart rate 92 /min Danette Lue [facility] 06-11-2023 09:16-0500 Systolic blood pressure 146 mm[Hg] Danette Lue [facility] 03-31-2023 15:00-0400 Body height 190.5 cm Perez Brock Other [employer] Other 03-31-2023 15:00-0400 Body mass index (BMI) [Ratio] 26.87 kg/m2 Perez Brock Other [employer] Other 03-31-2023 15:00-0400 Body temperature 98.7 [degF] Perez Brock Other [employer] Other 03-31-2023 15:00-0400 Body weight 97.52 kg Perez Brock Other [employer] Other 03-31-2023 15:00-0400 Diastolic blood pressure 82 mm[Hg] Perez Brock Other [employer] Other 03-31-2023 15:00-0400 Respiratory rate 18 /min Perez Brock Other [employer] Other 03-31-2023 15:00-0400 SaO2% (BldA) [Mass fraction] 97 % Perez Brock Other [employer] Other 03-31-2023 15:00-0400 Systolic blood pressure 116 mm[Hg] Perez Brock Other [employer] Other 03-26-2023 15:17-0400 Blood Pressure Location Danette Lue [facility] 03-26-2023 15:17-0400 Diastolic blood pressure 77 mm[Hg] Danette Lue [facility] 03-26-2023 15:17-0400 Heart rate 90 /min Danette García [facility] 03-26-2023 15:17-0400 Systolic blood pressure 144 mm[Hg] Danette García [facility] Encounters Encounter Date Encounter Type Care Provider Facility Start: 04-28-2024 ambulatory Danette ClearyVirgilio Ricky Facility:[facility] Start: 04-05-2024 End: 04-05-2024 ambulatory [facility] Start: 03-31-2024 End: 03-31-2024 Patient encounter procedure DO Perez Brock Work Phone: [facility] [place] Work Phone: Start: 03-31-2024 End: 03-31-2024 ambulatory DO Perez Brock Work Phone: [facility] Work Phone: Start: 03-11-2024 Non-patient / Non-visit DO Moisés Brock Work Phone: [facility] Work Phone: Start: 03-04-2024 End: 03-04-2024 ambulatory WILLIAM PLAZA Facility:[facility] Start: 03-01-2024 End: 03-01-2024 ambulatory Maurilio Araujo RN [facility] Work Phone: Start: 03-01-2024 End: 03-01-2024 Patient encounter procedure [facility] Work Phone: Start: 01-07-2024 End: 01-07-2024 Patient encounter procedure Andrology Jailer/Training Officer Work Phone: [facility] Comment on above: Procreative manageme nt Procreative manageme nt (Primary Dx) Start: 01-07-2024 End: 01-07-2024 ambulatory ANGEL TRACEE Facility:[facility] Start: 12-15-2023 End: 12-15-2023 Patient encounter procedure Andrology Jailer/Training Officer Work Phone: [facility] Comment on above: Encounter for invest igation and testing for procreative management Procreative manageme nt (Primary Dx) Start: 12-15-2023 End: 12-15-2023 ambulatory EVERARDO THOMPSON Facility:[facility] Start: 11-17-2023 End: 11-17-2023 ambulatory DO Perez Brock Work Phone: [facility] Work Phone: Start: 11-17-2023 End: 11-17-2023 Patient encounter procedure DO Perez Brock Work Phone: [facility] Work Phone: Start: 11-13-2023 End: 11-13-2023 Patient encounter procedure DO Perez Brock Work Phone: [facility] [place] Work Phone: Start: 11-13-2023 End: 11-13-2023 ambulatory DO Perez Brock Work Phone: [facility] Work Phone: Start: 11-04-2023 End: 11-04-2023 ambulatory [facility] Start: 10-21-2023 End: 10-21-2023 ambulatory JESSE NOLASCO Facility:[facility] Start: 09-22-2023 Non-patient / Non-visit DO Moisés Brock Work Phone: [facility] Work Phone: Start: 09-22-2023 End: 09-22-2023 ambulatory ANGEL TRACEE Facility:[facility] Start: 09-22-2023 End: 09-22-2023 Patient encounter procedure Andrology Jailer/Training Officer Work Phone: [facility] Comment on above: Encounter for invest igation and testing for procreative management Start: 08-27-2023 End: 08-27-2023 ambulatory ANGEL EASLEY Facility:[facility] Start: 08-27-2023 End: 08-27-2023 Patient encounter procedure Andrology Jailer/Training Officer Work Phone: [facility] Comment on above: Encounter for invest igation and testing for procreative management (Primary Dx) Start: 06-11-2023 End: 06-11-2023 ambulatory Danette García Facility:[facility] Start: 06-11-2023 End: 06-11-2023 Patient encounter procedure Danette García [facility] Start: 05-12-2023 End: 05-12-2023 ambulatory Perez Brock Other [employer] Other Start: 05-12-2023 Telephone encounter Perez Brock [facility] Start: 04-19-2023 End: 04-19-2023 Lab Drop off Danette EvinVirgilio García [facility] Start: 04-19-2023 End: 04-19-2023 ambulatory Danette García [facility] Start: 04-19-2023 End: 04-19-2023 Patient encounter procedure Danette García [facility] [place] Start: 04-15-2023 End: 04-15-2023 ambulatory Perez Brock Other [employer] Other Start: 04-15-2023 Telephone encounter Perez Brock [facility] Start: 04-14-2023 End: 04-14-2023 Patient encounter procedure DO Perez Brock Work Phone: [facility] [place] Work Phone: Start: 04-14-2023 End: 04-14-2023 ambulatory DO Perez Brock Work Phone: [facility] Work Phone: Start: 03-31-2023 End: 03-31-2023 ambulatory Perez Brock Other [employer] Other Start: 03-31-2023 Office outpatient vi sit 15 minutes Perez Brock [facility] Start: 03-26-2023 End: 03-26-2023 Patient encounter procedure Danette García [facility] Start: 03-23-2023 End: 03-23-2023 ambulatory DO Perez Brock Work Phone: [facility] Work Phone: Start: 03-23-2023 End: 03-23-2023 Patient encounter procedure DO Perez Brock Work Phone: [facility] Work Phone: Start: 02-10-2023 End: 02-10-2023 Patient encounter procedure DO Perez Brock Work Phone: [facility] [place] Work Phone: Start: 02-01-2023 End: 02-01-2023 Patient encounter procedure Danette García [facility] [place] Start: 01-20-2023 End: 01-20-2023 ambulatory DO Perez Brock Work Phone: [facility] Work Phone: Start: 01-20-2023 End: 01-20-2023 Patient encounter procedure DO Perez Brock Work Phone: [facility] [place] Work Phone: Start: 01-11-2023 End: 01-11-2023 Patient encounter procedure Danette García [facility] Start: 01-05-2023 End: 01-05-2023 Patient encounter procedure DO Perez Brock Work Phone: [facility] Work Phone: Start: 10-31-2022 End: 10-31-2022 ambulatory DO Perez Brock Work Phone: [facility] Work Phone: Start: 10-31-2022 End: 10-31-2022 Patient encounter procedure DO Perez Brock Work Phone: [facility] [place] Work Phone: Start: 06-05-2020 End: 06-06-2020 Patient encounter procedure JORJE PELLETIER Facility:[facility] Start: 05-24-2020 End: 05-25-2020 Patient encounter procedure IGNACIO CARRILLO Facility:[facility] Start: 03-26-2020 End: 03-27-2020 Patient encounter procedure IGNACIO CARRILLO Facility:[facility] Start: 02-14-2020 End: 02-14-2020 Patient encounter procedure PEREZ BROCK Facility:[facility] Start: 01-29-2020 End: 01-29-2020 [facility] Start: 10-01-2015 Josse Jefferson MD Work Phone: [facility] Procedures Date Procedure Procedure Detail Performing Clinician Start: 04-05-2024 Follow-up visit Follow-up KARON GLORIA Start: 03-31-2024 Ultrasonography of b ilateral kidneys [...] wave lithotripsy of calculus of kidney Danette García Start: 02-10-2023 Diagnostic radiograp hy of abdomen DO Perez Brock Work Phone: Start: 01-20-2023 CT of urinary tract DO Perez Brock Work Phone: Start: 01-11-2023 Cystoscopy Danette García Start: 01-05-2023 Ultrasonography of b ilateral kidneys DO Perez Brock Work Phone: Plan of Treatment Date Care Activity Detail Author Start: 03-26-2024 Influenza vaccination C [facility] Start: 01-07-2024 End: 04-07-2024 SPERM WASH GRADIENT [facility] Work Phone: Comment on above: Expected: 01/07/2024 , Expires: 04/07/2024 Start: 12-15-2023 End: 03-15-2024 SPERM WASH GRADIENT [facility] Work Phone: Comment on above: Expected: 12/15/2023 , Expires: 03/15/2024 Start: 11-17-2023 Patient referral [facility] Work Phone: Start: 07-26-2023 Behavioral Health Screening Behavioral Health Screening [facility] Start: 07-26-2023 Depression Assessment Depression Ass essment [facility] Start: 03-26-2023 Covid-19 Vaccine ( season) Covid-19 Vaccine () [facility] Start: 03-26-2023 Influenza vaccination Influenza Vacc ine (#1) [facility] Start: 03-26-2022 Influenza vaccination Sequenti al Influenza Vaccine (#1) [facility] Start: 12-19-2018 Urine microalbumin profile DTaP,Tdap,Td Vaccine (2 - Td or Tdap) [facility] Start: 2016 Hepatitis B Vaccine (1 of 3 - 19+ 3-dose series) Hepatitis B Vaccine (1 of 3 - 19+ 3-dose series) [facility] Start: 2015 Anxiety Screening Anxiety Screening [facility] Start: 2015 Depression Screening Depression Scre lauraing [facility] Start: 2015 Hepatitis C screening Hepatitis C Sc reejody [facility] Start: 2015 HIV screening HIV Screening [facility] Start: 2012 HIV screening HIV Screening [facility] Start: 2012 HPV Vaccine (1 - Mal e 3-dose series) HPV Vaccine (1 - Male 3-dose series) [facility] Start: 2011 Peds To Adult Transi tion Annual Assessment Peds To Adult Transition Annual Assessment [facility] Start: 2009 Depression screening using PHQ-9 (Patient Health Questionnaire 9) score Depression Screening (PHQ-2/9) [facility] Start: 2009 Peds To Adult Transi tion Initial Discussion Peds To Adult Transition Initial Discussion [facility] Start: 2008 Vaccination for marilynn n papillomavirus HPV Vaccines (1 - Male 2-dose series) [facility] Start: 2006 HPV Vaccine (1 - Mal e 2-dose series) HPV Vaccine (1 - Male 2-dose series) [facility] Start: 2000 History and physical examination, annual for health maintenance Wellness Visit [facility] Start: 1997 COVID-19 Vaccine (#1) COVID-19 Vacci ne (#1) [facility] Start: 1997 Hepatitis B Vaccine (1 of 3 - 3-dose series) Hepatitis B Vaccine (1 of 3 - 3-dose series) [facility] Start: 1997 Tetanus vaccination Tetanus: Every 1 0yrs [facility] Calcium.ionized [Mass/volume] in Serum or Plasma by Ion-selective membrane electrode (ISE) [facility] Patient referral [facility] Work Phone: End: 08-25-2024 SPERM WASH GRADIENT SPERM WASH GRADIENT Andrology Routine Encounter for investigation and testing for procreative management Once per month for 4 Occurrences starting 08/26/2023 until 08/25/2024, 1 completed [facility] Work Phone: Comment on above: Once per month for 4 Occurrences starting 08/26/2023 until 08/25/2024, 1 completed SPERM WASH GRADIENT SPERM WASH G RADIENT Andrology Routine Encounter for investigation and testing for procreative management 08/27/2023 1:55 PM [facility] Work Phone: SPERM WASH GRADIENT SPERM WASH G RADIENT Andrology Routine Encounter for investigation and testing for procreative management 09/22/2023 1:50 PM [facility] Work Phone: Immunizations Immunization Date Immunization Notes Care Provider [facility] 06-23-2021 influenza virus vacc ine, unspecified formulation Danette Lue [facility] 06-23-2021 SARS-CoV-2 (COVID-19 ) Ad26 vaccine, recombinant Danette Lue [facility] 02-20-2015 hepatitis A vaccine, unspecified formulation Danette Lue [facility] 11-22-2013 meningococcal ACWY vaccine, unspecified formulation Danette Lue [facility] 12-19-2008 meningococcal ACWY vaccine, unspecified formulation Danette Lue [facility] 12-19-2008 tetanus toxoid, redu francisco diphtheria toxoid, and acellular pertussis vaccine, adsorbed Danette Lue [facility] 12-19-2008 varicella virus vaccine Daphnie y Lue [facility] Payers Date Payer Category Payer Unknown [id number] 2023 Private Health Insurance CIG C IGNA OAP [id number] 2023-Present [phone] [address] [place] [address] Open Access [id number] 2023 Self-pay [id number] 2021 Private Health Insurance [id number] 2021 Private Health Insurance [id number] 2013 Medicaid [facility] MEDICAID [facility] MEDICAID [id number] 2013-Present [phone] [address] [place] [address] [id number] 1997 Unknown [id number] 2.16.840.1.762584.3.579.2 .593 1997 Unknown [id number] 2.16.840.1.026822.3.579.2 .593 1997 Unknown [id number] 2.16.840.1.486918.3.579.2 .593 1997 Unknown [id number] 2.16.840.1.809679.3.579.2 .593 1997 Unknown [id number] 2.16.840.1.695101.3.579.2 .593 1997 Unknown [id number] 2.16.840.1.024180.3.579.2 .593 1997 Unknown [id number] 2.16.840.1.125445.3.579.2 .1286 1997 Unknown [id number] 2.16.840.1.147007.3.579.2 .1286 1997 Unknown [id number] 2.16.840.1.162021.3.579.2 .727 1997 Unknown [id number] 2.16.840.1.671956.3.579.2 .727 1997 Unknown [id number] 2.16.840.1.018320.3.579.2 .727 1997 Unknown [id number] 2.16.840.1.487374.3.579.2 .727 Medicaid [employer] [id number] Unknown [id number] Unknown [id number] 2.16.840.1.900569.3.579.2 .531 Unknown [id number] 2.16.840.1.308612.3.579.2 .531 Unknown [id number] 2..840.1.287508.3.579.2 .531 Social History Date Type Detail Facility [facility] Start: 1997 Sex Assigned At Not on file [facility] Start: 1997 Sex Assigned At Male [facility] Start: 01-01-2023 End: 11-17-2023 Tobacco smoking status Never smoked tobacco (finding) [facility] Tobacco smoking status Never [facility] Start: 08-27-2023 Sex Assigned At Male [facility] Start: 08-27-2023 History of Social function [facility] Start: 08-16-2023 Gender identity Identifies as male gender (finding) [facility] Start: 08-16-2023 Sexual orientation Heterosexual (finding) [facility] Functional Status Date Assessment Result Facility 06-11-2023 Functional Status N/A [facility] 03-26-2023 Functional Status N/A [facility] 02-01-2023 Functional Status N/A [facility] 01-11-2023 Functional Status N/A [facility] Clinical Notes 10-31-2022 to 03-01-2024 Maurilio Araujo RN - 03/01/2024 2:55 PM EDTZee Damian - 01/07/2024 1:15 PM Lindsey Abraham APRN.CNP - 12/15/2023 5:11 PM EDTZee Damian - 12/15/2023 4:18 PM EDT Note Date & Type Note Facility 03-01-2024 Note HNO ID: [id number] Author: MAURILIO ARAUJO RN Service: ? Author Type: Registered Nurse Type: Progress Notes Filed: 03/01/2024 14:59 Note Text: Letter sent to patient to get STD panel done at lab closer to home. Mychart sent to Jenn de la cruz to notify.. Maurilio Araujo RN March 01, 2024 2:55 PM [facility] 03-01-2024 History of Presen t illness Narrative Letter sent to patient to get STD panel done at lab closer to home. Mychart sent to Jenn de la cruz to notify.. Maurilio Araujo RN March 01, 2024 2:55 PM documented in this encounter [facility] 01-07-2024 Note HNO ID: [id number] Author: ZEE DAMIAN, ? Service: ? Author Type: ? Type: Progress Notes Filed: 01/07/2024 14:43 Note Text: Semen Wash for IUI Zee Christine [facility] 01-07-2024 History of Presen t illness Narrative Semen Wash for IUI Zee Christine documented in this encounter [facility] 12-15-2023 Note HNO ID: [id number] Author: LINDSEY BLACKWOOD APRN.CNP Service: ? Author Type: Nurse Practitioner Type: Progress Notes Filed: 12/15/2023 17:12 Note Text: ordrs for sperm wash for iui done today. Lindsey Blackwood APRN.CNP December 15, 2023 5:12 PM [facility] 12-15-2023 History of Presen t illness Narrative ordrs for sperm wash for iui done today. Lindsey Blackwood APRN.CNP December 15, 2023 5:12 PM documented in this encounter [facility] 12-15-2023 Note HNO ID: [id number] Author: ZEE DAMIAN, ? Service: ? Author Type: ? Type: Progress Notes Filed: 12/15/2023 16:18 Note Text: [facility] History of Presen t illness Narrative Semen Wash for IUI Zee Neally documented in this encounter [facility] 10-21-2023 Note HNO ID: [id number] Author: ZEE DAMIAN, ? Service: ? Author Type: ? Type: Progress Notes Filed: 10/21/2023 15:17 Note Text: Semen Wash for IUI Zee Christine [facility] 09-22-2023 Note HNO ID: [id number] Author: ZEE DAMIAN, ? Service: ? Author Type: ? Type: Progress Notes Filed: 09/22/2023 15:49 Note Text: Semen Wash for IUI Zee Nesandrita [facility] 09-22-2023 History of Presen t illness Narrative Semen Wash for IUI Zee Neally documented in this encounter [facility] 08-27-2023 Note HNO ID: [id number] Author: ZEE DAMIAN, ? Service: ? Author Type: ? Type: Progress Notes Filed: 08/27/2023 15:42 Note Text: Semen Wash for MANJU Stafford Christine [facility] 08-27-2023 History of Presen t illness Narrative Semen Wash for MANJU Stafford Christine documented in this encounter [facility] 06-11-2023 Hospital Discharg e instructions Patient [...] include: ?8 oz (237 mL) of milk, tnzajcl-gopruwtqquzu-bxdog milk, and calcium-fortifiedfruit juice. Calcium-fortified means that [...] ?Spinach (cooked), rhubarb, beets, sweet potatoes, and Wallisian chard. ?Peanuts. ?Potato chips, albanian fries, and baked potatoes with skin on. ?Nuts and nut products. ?Chocolate. If you regularly take a diuretic medicine, make sure to eat at least 1 or 2 servings of fruits or vegetables that are high in potassium each day. These include: ?Avocado. ?Banana. ?Dover, prune, carrot, or tomato juice. ?Baked potato. [...] magnesium, fish oil, or vitamin B6. Take qaja-rib-ynfskus and prescription medicines only as told by [...] Casseroles. Pizza. Lasagna. Frozen meals. Potato chips. Cymraes fries. The items listed above may not [...] provider. Document Revised: 03/23/2022 Document Reviewed: 03/23/2022 [facility] Patient Education 2022 [employer]. Follow Up Care 03/26/2023 16:11:38 With:Ricky SAWYER, FLORIN Morales, URO Address: When:Within 7 Month(s) Comments:kym/KELLI and NIKHIL [facility] 05-12-2023 Evaluation note Encounter Date Diagnosis Assessment Notes Apr, Anxiety (ICD-10 - F41.9) [employer] Other 09-06-2023 Evaluation note* Encounter Date Diagnosis [...] does not currently have any kidney stones. [employer] Other 09-01-2023 Hospital Discharge instructions Patient Education [...] you may eat and drink normally. Take gehn-uvb-scmyasx and prescription medicines only as told by your health care provider. Let your health care provider know about any medicines that you are taking, including dcoc-tfl-ccdggvk medicines, vitamins, herbs, and supplements. Choose a [...] provider. Document Revised: 01/16/2022 Document Reviewed: 01/16/2022 [facility] Patient Education 2022 [employer]. Follow Up Care 02/26/2023 15:22:37 With:Ricky SAWYER, FLORIN Morales, URO Address: When: Unknown [facility] 07-10-2023 Hospital Discharge instructions Patient Education 02/01/2023 16:08:43 Kidney Stones, Ybry-fz-Vrrp Kidney Stones Kidney stones are rock-like masses [...] Follow these instructions at home: Medicines Take mrib-eeq-tvnxglw and prescription medicines only as told by [...] provider. Document Revised: 03/16/2022 Document Reviewed: 03/16/2022 [facility] Patient Education 2022 [employer]. Follow Up Care 01/27/2023 13:42:16 With:Ricky SAWYER, FLORIN Morales, URO Address: When: Unknown [facility] 06-19-2023 Hospital Discharge instructions Patient Education 01/11/2023 [...] Up Care 01/01/2023 15:12:02 With:Danette García Address: [address], [place] [address] [phone] Business (1) [address], [address] [address] [phone] Business (1) When: Unknown Comments:Office to schedule follow up in 2-[address] Urogram [facility]04-08-2023 NoteSperm Rapid ProgressiveApril 2022 8:30am71 %[facility] [id number] [address] [place], [place] [address]390804-08-2023 NoteSperm Non-ProgressiveApril 2022 8:30am7 %[facility] [id number] [address]04-08-2023 NoteSperm Rapid ProgressiveApril 2022 8:30am71 %[facility] [id number] [address] [place], [place] 0390804-08-2023 NoteSperm Non-ProgressiveApril 2022 8:30am7 %[facility] [id number] [address] [place], [place] [address]Evaluation + Plan note Future Appointments Appointment Date:02/01/2023 02:45:00 PM Scheduled Provider:Danette García MD Location:[facility] Appointment Type:URO [facility] Future Appointments Appointment Date:05/07/2023 08:15:00 AM Scheduled Provider:Danette Gracía MD Location:[facility] Appointment Type:URO Office Visit Diagnostic Tests Pending * Calculi Analysis Urinary 03/26/23 [facility] Evaluation + Plan note Future Appointments Appointment Date:05/07/2023 08:15:00 AM Scheduled Provider:Danette García MD [facility] Appointment Type:URO Office Visit [facility] Evaluation + Plan note Future Appointments Appointment Date:05/07/2023 08:15:00 AM Scheduled Provider:Danette García MD Location:[facility] [place] Appointment Type:URO Office Visit Diagnostic Tests Pending * Calculi Analysis Urinary 04/19/23 [facility] Future Appointments Appointment Date:01/07/2024 08:00:00 AM Scheduled Provider:Danette García MD Location:[facility] Appointment Type:URO Office Visit [facility] Evaluation noteNo assessment information available [facility] Work Phone: evaluation noteNo InformationNort [employer] Other Evaluation note* Diagnosis Encounter for investigation and testing for procreative management- Primary [facility] Diagnosis Encounter for investigation and testing for procreative management [facility] Diagnosis Onset Date Resolution Status Anxiety acute Spondylolisthesis acute [facility] Work Phone: Evaluation note* Diagnosis Encounter for investigation and testing for procreative management [facility] Diagnosis Procreative management- Primary Unspecified procreative management [facility] Diagnosis Procreative management Unspecified procreative management [facility]* Diagnosis Procreative management- Primary Unspecified procreative management [facility]* Diagnosis Onset Date Resolution Status Anxiety acute Pneumonia acute [facility] Work Phone: History general Narrative - Reported* Type Description Date Surgical History wisdom teeth 2017 [employer] Other Hospital course Narrative No data available for this section [facility] No data available for this section [facility] [place] Progress note No data available for this section [facility] for visit NarrativeANXIETY/REFERRAL FOR BACK INJURYNouniversity hospital [employer] Other Summary Purpose Family History No Family History Records Found Relationship Condition Age at Onset Recorded Date/T jonas father Diabetes mellitus Unknown grandparent Unknown Hypertension Unknown Malignant neoplasm Unknown Malignant neoplasm of breast Unknown Advance Directives No Advanced Directives Records Found Advance Directive Response Recorded Date/ Time Advance [...] and content) DATE CREATED AUTHOR 06/13/2020 [facility] DATE CREATED AUTHOR AUTHOR'S ORGANIZ ATION 03/04/2024 [facility] DATE CREATED AUTHOR AUTHOR'S ORGANIZ ATION 03/18/2024 [facility] DATE CREATED AUTHOR AUTHOR'S ORGANIZ ATION 04/07/2024 [facility] DATE CREATED AUTHOR AUTHOR'S ORGANIZ ATION 04/10/2024 [facility] DATE CREATED AUTHOR AUTHOR'S ORGANIZ ATION 04/13/2024 [facility] Reason for Visit (unrecogniz ed section and content) Reason Comments Medication Refill Specialty Diagnoses / Procedures [facility] To Contact Laboratory Medicine / REPRODUCTIVE ENDOCRINOLOGY & FERTILITY Diagnoses Female fertility problem Semen analysis benefit check Procedures SPRM ISOL CPLX PREP INSEMINATION/DX SEMEN DARI TELEVISIT 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, No, 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 [place] [place] [address] [place] [id number] Referral ID Status Reason Start Date Expiration Date V isits Requested Visits Authorized [id number] Closed Benefit Check 08/17/2023 07/25/2024 1 1 Specialty Diagnoses / Procedures Referred By Contac t Referred To Contact REPRODUCTIVE ENDOCRINOLOGY & FERTILITY Diagnoses Encounter for procreative management, unspecified Procedures SPRM ISOL CPLX PREP INSEMINATION/[place] [address] [place] [address] [facility] Lab [facility] [address] [place] [address] Referral ID Status Reason Start Date Expiration Date Visits Requested Visits Authorized [id number] Authorized Benefit Check Patient Cleared - True Self-Pay required payment collected Do Not Bill Insurance - SP patient 09/13/2023 12/12/2023 3 3 Specialty Diagnoses / Procedures [facility] Referred To Contact REPRODUCTIVE ENDOCRINOLOGY & FERTILITY Diagnoses Encounter for procreative management, unspecified Procedures SPRM ISOL CPLX PREP INSEMINATION/DX SEMEN DARI Everardo Thompson PA-C [address] [place] [address] [facility] Andrology Lab [facility] [address] [place] [address] Referral ID Status Reason Start Date Expiration Date V isits Requested Visits Authorized [id number] Closed Financial Clearance Required - Self Pay Patient Cleared - True Self-Pay required payment collected Do Not Bill Insurance - SP patient 12/06/2023 03/05/2024 1 1 Specialty Diagnoses / Procedures Referred By Contact Referred To Contact REPRODUCTIVE ENDOCRINOLOGY & FERTILITY Diagnoses Procreative management Procedures SPRM ISOL CPLX PREP INSEMINATION/DX SEMEN DARI 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, No, 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 i [place]rology [place] [facility] [place] [address] [place] [id number] Referral ID Status Reason Start Date Expiration Date V isits Requested Visits Authorized [id number] Closed Financial Clearance Required - Self Pay Patient Cleared - True Self-Pay required payment collected Do Not Bill Insurance - SP patient 01/06/2024 03/06/2024 1 1 Care Teams (unrecognized sec tion and content) Team Status: Active Member Role Status Lucia Brock DO Primary Care Provider Active Team Status: Inactive Member Role Status Lucia Brock DO Primary Care Provider Active S tart: March 01, 2024 End: March 01, 2024 Brittney Avilez APRN Attending Provider Active S tart: March 01, 2024 End: March 01, 2024 Team Status: Active Member Role Status Lucia Brock DO Primary Care Provider Active S tart: September 22, 2023 Caryn Santos LPN Attending Provider Active St art: September 22, 2023 Team Status: Inactive Member Role Status Lucia Brock DO Primary Care Provider Active S tart: November 13, 2023 End: November 13, 2023 Mauricio Gloria MD Attending Provider Act vane Start: November 13, 2023 End: November 13, 2023 Elementary Secretary Relationship Specialty Start Date End Date No, Physician [facility] PCP - General 12/09/15 Team Status: Inactive Member Role Status Lucia Brock DO Primary Care Provider Active Mikki Plummer DO Attending Provider Active Team Status: Inactive Member Role Status Lucia Brock DO Primary Care Provider Active Danette García MD Attending Provider Active Team Status: Inactive Member Role Status Lucia Brock DO Primary Care Provider, Attending Pro vider Active Danette García MD Referring Provider Active Team Status: Inactive Member Role Status Lucia Brock DO Primary Care Provide r, Attending Provider Active Start: November 17, 2023 End: November 17, 2023 Team Status: Inactive Member Role Status Lucia Brock DO Primary Care Provider Active S tart: March 01, 2024 End: March 01, 2024 Brittney COYLE APRN Attending Provider Active Start: March 01, 2024 End: March 01, 2024 Team Status: Active Member Role Status Lucia Brock DO Primary Care Provide r, Attending Provider Active Start: March 11, 2024 Team Status: Inactive Member Role Status Lucia Brock DO Primary Care Provider Active S [...] or prosecute any alcohol or drug abuse patient.[facility] the event this information is protected by the Federal Confidentiality of Alcohol and Drug Abuse Patient Records regulations: The Federal rules restrict any use of the information to criminally investigate or prosecute any alcohol or drug abuse patient.[facility] Hospital[facility] the event this information is protected by the Federal Confidentiality of Alcohol and Drug Abuse Patient Records regulations: The Federal rules restrict any use of the information to criminally investigate or prosecute any alcohol or drug abuse patient.[facility] Hospital[facility] the event this information is protected by the Federal Confidentiality of Alcohol and Drug Abuse Patient Records regulations: The Federal rules restrict any use of the information to criminally investigate or prosecute any alcohol or drug abuse patient.[facility] HospitalIn the event this information is protected by the Federal Confidentiality of Alcohol and Drug Abuse Patient Records regulations: The Federal rules restrict any use of the information to criminally investigate or prosecute any alcohol or drug abuse patient.[facility] Hospital[facility] the event this information is protected by the Federal Confidentiality of Alcohol and Drug Abuse Patient Records regulations: The Federal rules restrict any use of the information to criminally investigate or prosecute any alcohol or drug abuse patient.[facility] Hospital[facility] the event this information is protected by the Federal Confidentiality of Alcohol and Drug Abuse Patient Records regulations: The Federal rules restrict any use of the information to criminally investigate or prosecute any alcohol or drug abuse patient.[facility] FOR RECORDS PERTAINING TO PATIENTS WHO [...] BE BASED ON THE PRIMARY CLINICAL RECORDS. [facility]. provides no warranty or guarantee of the accuracy or completeness of information in this document.
== END 2024-04-20 15:57 | disposition home or self-care (01) ==
LOC: CT 15:57
PROVIDERS: PCP Family Medicine; Visit Provider Nurse Practitioner Family
DX: N13.30 Unspecified hydronephrosis (principal); N28.1 Cyst of kidney, acquired
CPT/HCPCS: 74176

== ENCOUNTER 2024-11-23 14:08 | Outpatient (OUT) | payer BC, SELFPAY ==
[2024-11-23 15:04] LABS: Alanine Aminotransferase 39 U/L (16-63); Albumin Globulin Ratio 1.4; Albumin Level 4.5 g/dL (3.4-5.0); Alkaline Phosphatase 64 U/L (46-116); Anion Gap 11.9; Aspartate Amino Transferase 13 U/L (15-37); Bilirubin Total 1.5 mg/dL (0.2-1.0); Calcium 9.5 mg/dL (8.5-10.1); Carbon Dioxide 33.3 mmol/L (21.0-32.0); Chloride 97 mmol/L (98-107); Estimated GFR (African America >60 (>=60 mL/min/1.73m^2); Estimated GFR (Non-African Ame >60 (>=60 mL/min/1.73m^2); Globulin 3.3 g/dL; Glucose 98 mg/dL (74-106); Potassium 3.2 mmol/L (3.5-5.1); Sodium 139 mmol/L (136-145); Total Protein 7.8 g/dL (6.4-8.2)
[2024-11-24 11:08] LABS: PTH, Intact 52 pg/mL (15-65)
== END 2024-11-23 14:09 | disposition home or self-care (01) ==
LOC: LAB 14:10
PROVIDERS: PCP Family Medicine
DX: E21.3 Hyperparathyroidism, unspecified (principal)
CPT/HCPCS: 36415; 80053; 82306; 83970

== ENCOUNTER 2025-02-19 08:29 | Outpatient (REF) | payer BC, SELFPAY ==
--- OUTSIDE RECORDS SUMMARY | 2025-02-19 08:32 | XMS_ITS | Encounter Summary ---
Author Organization [employer] Address [id number] [address] [place] [address] Care Team Providers Care Director Of Health Care Marketing Name Role Phone José Miguel Dawkins Primary Care Provider [phone] Encounter Details Date Type Department Care Team (Latest Contact Info) Description 11/23/2023 Orders Only [facility] [address] [facility] [address] [place] [address] Isabella Garcia CMA Hyperparathyroidism ([facility]) Social History Tobacco Use Types Packs/Day Years Used Date Smoking Tobacco: Never Smokeless Tobacco: Never Alcohol Use Standard Drinks/Week Comments Yes 0 (1 standard drink = 0.6 oz pur e alcohol) weekly Childcare Answer Date Recorded Childcare Unknown 04/14/2019 Employment Answer Date Recorded Employment Unknown 04/14/2019 Hunger Screening Answer Date Recorded Within the past 12 months we worried whether our food would run out before we got money to buy more. Never True 11/04/2023 Within the past 12 months th e food we bought just didn't last and we didn't have money to get more. Never True 11/04/2023 Purpose - Life Answer Date Recorded Purpose and direction in life Unknown Sex and Gender Information Value Date Recorded Sex Assigned at Not on file Legal Sex Male 11:26 AM EDT Gender Identity Not on file Sexual Orientation Not on file documented as of this encounter Plan of Treatment Upcoming Encounters Date Type Department Care Team (Late st Contact Info) Description 02/28/2025 1:15 PM EDT Office Visit [facility] Adult Endocrinology, A Department of [facility] [address] [place] [phone] Mauricio Austin MD [address] [place] [address] documented as of this encounter Procedures Procedure Name Priority Date/Time Associated Diagnosis Comments PARATHYROID HORMOME, INTACT Routine 11/13/2023 Hyperparathyroidism ([facility]) VITAMIN D 25 HYDROXY Routine 11/13/2023 Hyperparathyroidism ([facility]) MAGNESIUM Routine 11/13/2023 Hyperparathyroidism ([facility]) IONIZED CALCIUM Routine 11/13/2023 IONIZED CALCIUM Routine 11/13/2023 Hyperparathyroidism ([facility]) COMPREHENSIVE METABOLIC PANEL Routine 11/13/2023 Hyperparathyroidism ([facility]) COMPREHENSIVE METABOLIC PANEL Routine 11/13/2023 Hyperparathyroidism ([facility]) documented in this encounter Results * Ionized calcium (11/13/2023) 11/13/2023 us Scanning Provider External LAB BLOOD ORDERABLES Final Result * Ionized calcium (11/13/2023) 11/13/2023 us Mauricio Gloria MD LAB BLOOD ORDERA BLES Final Result SUNQUEST * Comprehensive metabolic panel (11/13/2023) 11/13/2023 us Mauricio Gloria MD LAB BLOOD ORDERA BLES Final Result Performing Organization Address [facility] Co de Phone Number SUNQUEST * Parathyroid Hormone, intact (11/13/2023) 11/13/2023 Mauricio Gloria MD LAB BLOOD ORDERA BLES Final Result Performing Organization Address [facility] Co de Phone Number SUNQUEST * Magnesium (11/13/2023) 11/13/2023 Mauricio Gloria MD LAB BLOOD ORDERA BLES Final Result Performing Organization Address [facility] Co de Phone Number SUNQUEST * Comprehensive metabolic panel (11/13/2023) 11/13/2023 Mauricio Gloria MD LAB BLOOD ORDERA BLES Final Result Performing Organization Address [facility] de Phone Number SUNQUEST * Vitamin D 25 hydroxy (11/13/2023) 11/13/2023 Mauricio Gloria MD LAB BLOOD ORDERA BLES Final Result Performing Organization Address [facility] de Phone Number SUNQUEST documented in this encounter Visit Diagnoses Diagnosis Hyperparathyroidism Hyperparathyroidism, unspecified documented in this encounter Care Teams Director Of Health Care Marketing Relationship Specialty Start Date End Date José Miguel Dawkins DO [address] [place] [place] [address] PCP - General Family Medicine 04/27/19 documented as of this encounter
--- OUTSIDE RECORDS SUMMARY | 2025-02-19 08:32 | XMS_ITS | Encounter Summary ---
Author Organization [employer] Address [id number] [address] [place] [address] Care Team Providers Care Diesel Scoop Operator Name Role Phone José Miguel Dawkins Marycarmen ANDRES Primary Care Provider [phone] Encounter Details Date Type Department Care Team (Late st Contact Info) Description 02/07/2024 Telephone [facility] [address] [phone] Brittney Marie LPN Social History Tobacco Use Types Packs/Day Years [...] on file documented as of this encounter Miscellaneous Notes * Telephone Encounter - Brittney Marie LPN - 02/07/2024 9:35 AM EDT DOES HE NEED LABS BEFORE HIS APPT? * Telephone Encounter - Mauricio Gloria MD - 02/07/2024 9:35 AM EDT Please enter order for PTH comprehensive metabolic panel and ionized calcium documented in this encounter Plan of Treatment Upcoming Encounters Date Type Department Care Team (Late st Contact Info) Description 02/28/2025 1:15 PM EDT Office Visit [facility] Adult Endocrinology, A Department of [facility] [address] [place] [address] Mauricio Austin MD [address] [place] [address] documented as of this encounter Visit Diagnoses Not on filedocumented in this encounter Care Teams Diesel Scoop Operator Relationship Specialty Start Date End Date José Miguel aDwkins DO [address] [place] [address] [place] [address] PCP - General Family Medicine 04/27/19 documented as of this encounter
--- OUTSIDE RECORDS SUMMARY | 2025-02-19 08:32 | XMS_ITS | Encounter Summary ---
Author Organization [facility] Address [address] [place] [id number] Care Team Providers Care Hoist Cylinder Loader Name Role Phone Unavailable Primary Care Provider Unavailabl e Source Comments In the event this information is protected by the Federal Confidentiality of Alcohol and Drug AbusePatient Records regulations: The Federal rules restrict any use of the information to criminally investigate or prosecute any alcohol or drug abuse patient.[facility] Encounter Details Date Type Department Care Team (Latest Contact Info) Description 08/17/2023 Patient Msg Reproductive Endocrinology Infertility [id number] [place] [phone] Provider, [facility] confidential a referral was placed for semen wash and authorized by insurance Social History Tobacco Use Types Packs/Day Years Used Date Smoking Tobacco: Never Assessed Sex and Gender Information Value Date Recorded Sex Assigned at Male 08/16/2023 9:37 AM EST Legal Sex Male 9:32 AM EST Gender Identity Male 08/16/2023 9:37 AM EST Sexual Orientation Straight 08/16/2023 9: 37 AM EST documented as of this encounter Plan of Treatment Not on file documented as of this encounter Visit Diagnoses Not on filedocumented in this encounter
--- OUTSIDE RECORDS SUMMARY | 2025-02-19 08:32 | XMS_ITS | Clinical Summary ---
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/. Last address used for calculation [address] [facility] 08/27/2023 Sex and Gender Information Value Date Recorded Sex Assigned at Male 08/16/2023 9:37 AM EST Legal Sex Male 9:32 AM EST Gender Identity Male 08/16/2023 9:37 AM EST Sexual Orientation Straight 08/16/2023 9: 37 AM EST Plan of Treatment Health Maintenance Due Date Last Done Comments Anxiety Screening 2015 Depression Screening 2015 HIV Screening 2015 Hepatitis C Screening 2015 Hepatitis B Vaccine (1 of 3 - 19+ 3-dose series) 05/22 DTaP,Tdap,Td Vaccine (2 - Td or Tdap) 12/19/2018 Influenza Vaccine (#1) 2025 06/23/2021 Insurance [employer] PPO
--- OUTSIDE RECORDS SUMMARY | 2025-02-19 08:32 | XMS_ITS | Clinical Summary ---
Author Organization [employer] Address [id number] [address] [place] [address] Care Team Providers Care Client Technologies Analyst Name Role Phone CarolynneugeniaJosé Miguel DO Primary Care Provider Allergies Active Allergy Reactions Criticality Noted Date Comments Escitalopram 03/01/2024 Other Reaction(s): sexual side effects, excessive sweating and mood swings Medications busPIRone (BUSPAR) 10 mg tablet TAKE 1 TABLET BY MOUTH TWICE A DAY 09/22/2023 Active cetirizine (ZyrTEC) 10 mg tablet Daily 11/17/2023 Active hydroCHLOROthiaz boogie (HYDRODIURIL) 25 mg tablet TAKE 1 TABLET BY MOUTH TWICE A DAY BEFORE MEALS 180 tablet 1 10/09/2024 Active Active Problems Problem Noted Date Diagnosed Date Hyperparathyroidism 11/04/2023 Assessment & Plan (04/05/2024 12:13 PM EDT): Mr. 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 Patient will start taking vitamin-D 1000 units daily. Advised to follow a low sodium diet and will recheck 24 hour urine for calcium creatinine and sodium PTH serum calcium and vitamin-D levels prior to his next appointment in 6 months Assessment & Plan (11/04/2023 5:08 PM EDT): Mr. Marcelino is a 28-year-old gentleman with secondary hyperparathyroidism. Possible etiologies include vitamin-D deficiency and hypercalciuria. We will obtain PTH serum calcium and 25 hydroxy vitamin-D levels to clarify this some more. Of course if serum calcium is elevated this would be consistent with primary hyperparathyroidism which can explain the presence of kidney stones and hypercalciuria. If serum calcium is normal we will start the patient on hydrochlorothiazide. Of note 24 hour sodium was also elevated which can worsen hypercalciuria so patient was advised to limit his salt intake. We will recheck serum calcium PTH prior to his next appointment in 3 months Family History Medical History Relation Name Comments Breast cancer Maternal Grandmother Hypertension Maternal Grandmother Relation Name Status Comments Maternal Grandmother Social History Tobacco Use Types Packs/Day Years Used Date Smoking Tobacco: Never Smokeless Tobacco: Never Tobacco Cessation:Counseling Given: Not Answered Alcohol Use Standard Drinks/Week Comments Yes 0 (1 standard drink = 0.6 oz pur e alcohol) weekly Childcare Answer Date Recorded Childcare Unknown 04/14/2019 Employment Answer Date Recorded Employment Unknown 04/14/2019 Hunger Screening Answer Date Recorded Within the past 12 months we worried whether our food would run out before we got money to buy more. Never True 04/05/2024 Within the past 12 months th e food we bought just didn't last and we didn't have money to get more. Never True 04/05/2024 Purpose - Life Answer Date Recorded Purpose and direction in life Unknown Sex and Gender Information Value Date Recorded Sex Assigned at Not on file Legal Sex Male 11:26 AM EDT Gender Identity Not on file Sexual Orientation Not on file Last Filed Vital Signs Vital Sign Reading Time Taken Comments Blood Pressure 132/91 04/05/2024 11:39 AM EDT Pulse 90 04/05/2024 11:39 AM EDT Temperature - - Respiratory Rate - - Oxygen Saturation - - Inhaled Oxygen Concentration - - Weight 99.7 kg (219 lb 11.2 oz) 024 11:39 AM EDT Height - - Body Mass Index - - Plan of Treatment Upcoming Encounters Date Type Department Care Team (Juan C st Contact Info) Description 02/28/2025 1:15 PM EDT Office Visit [facility] Adult Endocrinology, A Department of [facility] [address] [phone] Mauricio Austin MD [address] [place] [address] Health Maintenance Due Date Last Done Comments Depression Screening 2009 Adult BMI Screening 2015 DTaP,Tdap and Td Vaccines (2 - Td or Tdap) 12/19/2018 12/19/2008 COVID-19 Vaccine (2 - season) 2024 Influenza Vaccine 03/26/2025 06/23/2021 Tobacco Screening 04/05/2025 04/05/2024 Medical Devices Not on file Insurance ANTH Care Teams Client Technologies Analyst Relationship Specialty Start Date End Date José Miguel Dawkins DO [address] [place] [address] [place] [address] [place] [address] PCP - General Family Medicine 04/27/19
[2025-02-19 10:33] LABS: Calcium 24 Hour Urine 201.6 mg/24hr (100.0-300.0); Creatinine 24 Hour Urine 1735.68 mg/24 hr (1000.0-2000.00); Total Volume 24 Hour Urine 3200 mL/24hr
== END 2025-02-19 08:30 | disposition home or self-care (01) ==
LOC: LAB 08:29
PROVIDERS: PCP Family Medicine
DX: E21.3 Hyperparathyroidism, unspecified (principal)
CPT/HCPCS: 82340; 82570; 84300